=== PATIENT | male | born 1930 | race Caucasian/White ===

== ENCOUNTER 2016-10-31 00:56 | Inpatient (IN) ==
--- NOTE | 2016-10-31 01:26 | PROVIDER DOCUMENTATION ---
HPI-Abdominal Pain/GI Problem <Koko Avina - Last Filed: 10/31/16 02:44> - General Source: patient - History of Present Illness-ABD Nature of Presenting Problems: Pt is a 86 yom who presents to ER with CC of abdominal discomfort. Pt reports that he has noticed his abdomen has become moderately distended/tight, and reports nausea. Pt reports that he has had x2 bm today, and is having no problems, but reports that he was unable to sleep tonight due to the abdominal tightness. Abdominal Pain Onset Location: reports: generalized abdomen Pain Radiation: reports: no radiation Quality of Pain: reports: dull Severity in ED: reports: moderate Onset/Duration: reports: unsure, this evening Timing: reports: still present Activities at Onset: reports: rest Modifying Factors: improves with: other (sitting up). worse with: lying down Associated Symptoms: reports: loss of appetite (x3 days), nausea, swelling/mass in abdomen. denies: arm pain, back/neck pain, chest pain, cough, diarrhea, fatigue, genitourinary problems, muscle aches, shortness of breath, pain with inspiration, syncope, vomiting Last BM: this evening Dark Stools Present?: reports: none noticed Rectal Bleeding: reports: none Rectal Pain: reports: none Emesis Description: reports: none <Pj Kumar - Last Filed: 10/31/16 02:46> - General Chief Complaint: Abdominal Pain Stated Complaint: ABD PAIN Time Seen by Provider: 10/31/16 01:04 Allergies/Adverse Reactions: Patient Allergies Allergy/AdvReac Type Severity Reaction Status Date / Time pregabalin [From Lyrica] Allergy Unknown altered Verified 10/31/16 02:21 mental status diltiazem Allergy Unknown Verified 10/31/16 02:21 Home Medications: Home Medication List Medication Instructions Recorded Confirmed Last Taken Type EZETIMIBE/SIMVAstatin [Vytorin 1 each PO QHS 08/24/13 11/27/13 11/27/13 18:30 History 10/40 mg] Atenolol [Tenormin] 25 mg PO DAILY #0 tablet 09/20/13 11/27/13 11/27/13 08:30 Rx Thiamine [Vitamin B-1] 100 mg PO DAILY #30 tablet 11/17/13 11/27/13 11/27/13 08: 30 Rx Aspirin 81 mg PO DAILY 11/27/13 11/27/13 11/27/13 08:30 History Duloxetine [Cymbalta] 30 mg PO DAILY 11/27/13 11/27/13 11/27/13 08:30 History Ergocalciferol (Vitamin D2) 50,000 unit PO DIRECTED 11/27/13 11/27/13 Unknown History Insulin Detemir [Levemir Flexpen] 10 unit SQ HS 11/27/13 11/27/13 11/27/13 18: 30 History Multivitamins/Minerals [Centrum 1 each PO DAILY 11/27/13 11/27/13 11/27/13 08: 30 History Silver] Pyridoxine HCl [Vitamin B-6] 50 mg PO DAILY 11/27/13 11/27/13 11/27/13 08:30 History Temazepam 30 mg PO HS 11/27/13 11/27/13 11/27/13 18:30 History Review of Systems - Adult - REVIEW OF SYSTEMS - ADULT Constitutional: denies: chills, fever, fatique, night sweats Eyes: reports: no symptoms reported Ears, Nose, Mouth & Throat: reports: no symptoms reported Cardiovascular: denies: chest pain, edema, heart murmur, irregular heart rate, palpitations, poor circulation, syncope Respiratory: reports: wheezing. denies: chronic cough, cough, dyspnea on exertion, excessive sputum production, hemoptysis, pleurisy, shortness of breath Gastrointestinal: reports: abdominal pain, nausea, poor appetite. denies: hematemesis, constipation, diarrhea, difficulty swallowing, frequent heartburn, rectal bleeding, vomiting Genitourinary: reports: no symptoms reported Musculoskeletal: reports: no symptoms reported Integumentary: reports: no symptoms reported Neurological: reports: no symptoms reported Psychiatric: reports: no symptoms reported Endocrine: reports: no symptoms reported Hematologic/Lymphatic: reports: no symptoms reported Allergic/Immunologic: reports: no symptoms reported All Other Systems: Reviewed and Negative <Pj Kumar - Last Filed: 10/31/16 02:46> Past History - Adult - PAST MEDICAL HISTORY-ADULT Review of Records: reports: Nursing Assessment Review, Medications Reviewed - IMMUNIZATION STATUS Childhood Immunizations: See Nurse Assessment Flu Vaccine: See Nurse Assessment <Pj Kumar - Last Filed: 10/31/16 02:46> Physical Exam-General - PHYSICAL EXAM-ADULT Initial Vital Signs Reviewed: Yes - CONSTITUTIONAL General Appearance: appears well, alert, moderate distress, obese. negative: lethargic, slow to respond, obtunded, combative - RESPIRATORY Respiratory: chest non-tender, lungs clear, normal breath sounds. negative: respiratory distress, decreased breath sounds, accessory muscle use, wheezing - CARDIOVASCULAR Cardiovascular: normal peripheral pulses, regular rate, rhythm. negative: bradycardia, tachycardia, irregularly irregular - GASTROINTESTINAL (ABDOMEN) Abdominal Exam: normal bowel sounds, soft, distended, tenderness (diffuse). negative: guarding, rigid, rebound - MUSCULOSKELETAL Back Exam: no CVA tenderness, no vertebral tenderness. negative: CVA tenderness , decreased range of motion, muscle spasm, swelling, vertebral tenderness - SKIN Integumentary: normal color, normal turgor, warm/dry, swelling (abdominal), tenderness (abdominal) - NEUROLOGIC Neurologic: grossly normal, no motor/sensory deficits - PSYCHIATRIC Psych/Mental Status: normal thought content, normal thought process, oriented x 3, anxious <Pj Kumar - Last Filed: 10/31/16 02:46> Progress - PLAN OF CARE/RESULTS Progress/Plan/Lab Results: POC: CT/labs Vital Signs - 24 hr 10/31/16 00:58 Temperature 97.9 F Pulse Rate 113 H Respiratory 20 Rate Blood Pressure 116/71 O2 Sat by Pulse 94 L Oximetry Orders Category Date Time Status ABDOMEN/PELVIS W/O CONTRAST [CT] Stat Exams 10/31/16 01:21 Taken CBC WITH ELECTRONIC DIFF [HEME] Stat Lab 10/31/16 02:17 Completed CMP [COMPREHENSIVE METABOLIC PANEL] [CHEM] Stat Lab 10/31/16 02:17 Completed LIPASE [CHEM] Stat Lab 10/31/16 02:17 Completed MAGNESIUM [CHEM] Stat Lab 10/31/16 02:17 Completed UA Reflex [URINALYSIS W/POSS RFLX CULT] [URINALYSIS] Lab 10/31/16 01:08 Uncollected Stat 0.9% Sodium Chloride Inj [Ns] 1,000 ml Med 10/31/16 02:17 Active IV 125 mls/hr Acetaminophen [Ofirmev 1000 mg/Isotonic Soln] 100 ml Med 10/31/16 02:17 Discontinued IV NOW Ondansetron [Zofran] Med 10/31/16 02:17 Discontinued 4 mg IV NOW ONE Laboratory Tests 10/31/16 10/31/16 02:17 02:17 WBC 8.22 RBC 4.99 Hgb 15.9 Hct 47.2 MCV 94.6 MCH 31.9 H MCHC 33.7 RDW Std Deviation 13.4 Plt Count 148 MPV 9.8 Immature Gran % (Auto) 0.2 Neut % (Auto) 71.5 Lymph % (Auto) 7.3 L [place] % (Auto) 20.9 H Eos % (Auto) 0.0 Baso % (Auto) 0.1 Immature Gran # (Auto) 0.02 Neut # (Auto) 5.87 Lymph # (Auto) 0.60 L [place] # (Auto) 1.72 H Eos # (Auto) 0.00 Baso # (Auto) 0.01 Sodium 135 L Potassium 5.3 H Chloride 96 L Carbon Dioxide 22 L Anion Gap 17 BUN 26 H Creatinine 1.4 H Estimated GFR/1.73 m2 48 BUN/Creatinine Ratio 19 Glucose 206 H Calculated Osmolality 281 Calcium 9.4 Magnesium 1.8 Total Bilirubin 1.00 AST 16 ALT 16 Alkaline Phosphatase 59 Total Protein 6.9 Albumin 3.7 Globulin 3.2 Albumin/Globulin Ratio 1.2 Lipase 9 L - CT/MRI 1 CT Study: Abdomen, Pelvis Impression: See EMR Report CT Results: Small bowel obstruction - CONSULTS/PCP/HOSPITALIST Notification #1 *Consult/PCP/Hospitalist*: Dr. Chaudhary (Hospitalist) Time Discussed: 02:46 Consult Disposition: Admit <Pj Kumar - Last Filed: 10/31/16 02:46> Departure - Departure Time of Disposition Order: 02:44 Certified Medical Emergency: Emergent <Koko Avina - Last Filed: 10/31/16 02:44> - Departure Time of Disposition Order: 02:46 Certified Medical Emergency: Emergent <Pj Kumar - Last Filed: 10/31/16 02:46> - Departure DIAGNOSIS: SBO (small bowel obstruction) Disposition: ADMITTED INPATIENT 09 Condition: Stable Referrals: Omer Gaona, [Primary Care Provider] - Attestation - Scribe Verification/Attestation Scribe:: Pj Kumar Acting as Scribe for:: Koko Avina Scribe documention review:: This chart was documented by a scribe and accurately reflects the service the provider performed and the decisions made by the provider. <Pj Kumar - Last Filed: 10/31/16 02:46> Physician Attestation
[2016-10-31] MEDS ORDERED: NS 1,000 ML IV ONE (02:17)
[2016-10-31] MEDS ORDERED: OFIRMEV 1000 MG/ISOTONIC SOLN 100 ML IV ONE (02:17)
[2016-10-31] MEDS ORDERED: ZOFRAN IV ONE (02:17)
[2016-10-31 02:25] LABS: BASO% 0.1 % (0.0-0.8); HEMATOCRIT 47.2 % (42.0-52.0); HEMOGLOBIN 15.9 g/dL (14.0-18.0); IMM GRAN# 0.02 X1000 (0.0-0.04); IMM GRAN% 0.2 % (0.0-0.5); LYMPH% 7.3 % (20.5-51.1); MANUAL DIFF NEEDED? NO; MCH 31.9 PG (27-31); MCHC 33.7 g/dL (33-37); MCV 94.6 FL (81-99); MONO# 1.72 X1000 (0.11-0.59); MONO% 20.9 % (1.7-9.3); MPV 9.8 FL (7.4-10.4); NEUT% 71.5 % (42.2-75.2); PLT 148 X1000 (130-400); RBC 4.99 XMIL (4.7-6.1)
[2016-10-31 02:42] LABS: ALBUMIN 3.7 g/dL (3.5-5.0); CALCIUM 9.4 mg/dL (8.8-10.2); MAGNESIUM 1.8 mg/dL (1.5-2.7); POTASSIUM 5.3 mmol/L (3.5-5.1); TOTAL PROTEIN 6.9 g/dL (6.3-8.3)
[2016-10-31] MEDS ORDERED: TYLENOL PO PRN (03:16)
[2016-10-31] MEDS ORDERED: ZOFRAN IV PRN (03:16)
[2016-10-31 04:57] LABS: HEMOGLOBIN A1C 5.7 % (4.8-6.0)
[2016-10-31] MEDS: SODIUM CHLORIDE 0.9% INJ SCH (05:10)
[2016-10-31] MEDS: MORPHINE IV PRN ×6 (05:11→20:56)
[2016-10-31] MEDS: PROTONIX IV SCH (05:11)
--- NOTE | 2016-10-31 07:11 | CONSULTATION ---
DATE OF CONSULTATION: 10/31/2016 REQUESTING PHYSICIAN: Hospitalist service. REASON FOR CONSULTATION: Consult concerning small bowel obstruction. HISTORY OF PRESENT ILLNESS: An 86-year-old, male, who presented to the emergency department complaining of abdominal discomfort. He noticed that his abdomen had become moderately distended and tight, and reported some nausea. He said he had 2 bowel movements the day of presentation, but had no other issues. He said the abdominal tightness had awoken him from his sleep. He now says that his pain has resolved since he was admitted. He is still significantly distended. He had a CT scan that showed a bowel obstruction with potential transition point down in the pelvis. I was asked to evaluate the patient. PAST MEDICAL HISTORY: Hyperlipidemia, hypertension. Diabetes. PAST SURGICAL HISTORY: Includes previous spine surgery. Bilateral inguinal hernias. FAMILY HISTORY: Reviewed with patient, noncontributory. HOME MEDICATION: List includes simvastatin, atenolol, thiamine, aspirin, Cymbalta, vitamin D, Levemir, Centrum Silver, vitamin B6, temazepam. ALLERGIES: Include Lyrica and diltiazem. SOCIAL HISTORY: Denies alcohol, tobacco or illicit drugs. REVIEW OF SYSTEMS: A full 10 point review of systems obtained, negative except as specified in HPI. PHYSICAL EXAMINATION: Vital Signs: The patient is currently afebrile. His vital signs are stable. His most recent temperature 97.8, pulse 99, respiratory rate 20, blood pressure 134/91, O2 saturation 97% on 2 L nasal cannula. General: No acute distress. Resting comfortably. male looks stated age. HEENT: Normocephalic, atraumatic. Pupils are round, react to light. Mucous membranes moist. Oropharynx benign. Neck: Supple. Trachea midline. Cardiovascular: Regular rate and rhythm. Lungs: Grossly clear. Abdomen: Protuberant, but soft. Tympanic to percussion. No significant abdominal tenderness. No peritoneal signs. Extremities: Moves all extremities well. Neurologic: Grossly intact. Skin: No signs of jaundice. Vascular: All extremities perfused. LABORATORY: Reviewed. CBC is essentially within normal limits. BMP reviewed. He does have some electrolyte imbalance with a sodium 135, potassium 5.3, chloride 96, bicarb 22, BUN is 26, creatinine is 1.4, glucose 206. CT scan independently reviewed and radiology report reviewed. He does seem to have what appears to be a partial small bowel obstruction. ASSESSMENT AND PLAN: An 86-year-old, male with likely partial small bowel obstruction. 1. Multiple medical comorbidities to be managed by the hospitalist service. 2. Small bowel obstruction. At this time, we will place a nasogastric tube given the distention. Will order a flat and upright later on today to evaluate progress. We will try nonoperative approach given his lack of tenderness at this time. If no improvement, may need to consider exploratory laparotomy. This was discussed with the patient. He voiced understanding. We will follow the patient with you.
--- NOTE | 2016-10-31 08:57 | HISTORY AND PHYSICAL ---
PRIMARY CARE PROVIDER: Dr. Omer Gaona. CHIEF COMPLAINT: Abdominal pain. HISTORY OF PRESENT ILLNESS: Mr. Tucker is an 86-year-old male with a past medical history of diabetes mellitus type 2, dyslipidemia, hypertension, coronary artery disease status post CABG in 1996, renal insufficiency, and BPH. He presented to the ER this morning at approximately 1 a.m. with complaints of abdominal pain and nausea. The patient states that earlier today he began having abdominal pain. He also reports that for the past 2-3 days that he has noticed increased abdominal distension. The patient complains of just generalized abdominal pain that he describes as feeling like a tightness-type pain in nature. He does report nausea though denies any vomiting. The patient states that he has been having daily regular bowel movements. He denies any melena though he did report that he did have 2 episodes of loose stools today. He also reports that for the past day or two that he has been more fatigued than normal. He reports that the pain in his abdomen is worse when lying down and is better when he is sitting up. He denies any dizziness, chest pain, shortness of breath, cough, vomiting, fever, body aches or chills. Upon evaluation in the ER, the patient did receive a CT of the abdomen and pelvis that showed a small bowel obstruction. There were multiple prominently dilated gas and fluid filled loops of small bowel with transition to normal caliber in the right abdomen. There was also mesenteric edema with a small amount of free fluid. Also possible was a small lipoma within the loop of the bowel in the right lower quadrant, though this was likely incidental. The patient was also found to have acute kidney injury on chronic kidney disease. His creatinine is 1.4, though the only previous result that we have was 1.2 in 2014. The patient's GFR was 48 with a most recent result of greater than 60 in 2014, as well. The patient does report that for the past couple of days that he has not had an appetite and has not been eating and drinking much. REVIEW OF SYSTEMS: A 14-point review of systems was conducted with the patient and all were negative except for pertinent positives mentioned in the above HPI. PAST MEDICAL HISTORY: 1. Diabetes mellitus type 2. 2. Nephropathy. 3. Dyslipidemia. 4. Hypertension. 5. Coronary artery disease status post CABG in 1996. 6. Renal insufficiency. 7. Degenerative disk disease. 8. BPH. PAST SURGICAL HISTORY: 1. Coronary artery bypass graft [place] [address] Arguelles at [facility]. 2. Several lower back surgeries as well as fusion for herniated disk. 3. Tonsillectomy. 4. Cyst removal from right shoulder. 5. Hernia repair. SOCIAL HISTORY: The patient is , does have 4 children. His son was present at the bedside upon my examination. He does have an approximately 20-year smoking history though quit smoking 45 years ago. During this time, he did smoke approximately 3 packs of cigarettes per day. He also reports previous daily alcohol use. The patient reports that he used to drink 3 alcoholic drinks daily for several, several years from the age of a teenager though quit approximately 3 years ago. FAMILY HISTORY: His father has a history of heart disease and did pass away secondary to a myocardial infarction. He reports that his mother had no major medical problems and of natural causes at age 96. He does have a sister that has a history of stroke and dementia. ALLERGIES: The patient reports allergies to Lyrica and Cardizem. HOME MEDICATIONS: At this time, the patient was unable to verify his home medications. We have made a request to have the patient's medications bottles brought in or verified with his pharmacy in the morning, if possible, and will update this once this available. DIAGNOSTIC DATA/LABORATORY RESULTS: White blood cell count 8.2, hemoglobin 15.9, hematocrit 47.2, platelet count 148. Sodium 135, potassium 5.3, chloride 96, bicarb 22, BUN 26, creatinine 1.4, GFR is 48, glucose 206, hemoglobin A1c was 5.7, calcium 9.4, magnesium 1.8. Liver function tests were within normal limits. Lipase was 9. CT of the abdomen and pelvis without contrast: As mentioned above, there was a small bowel obstruction identified. There were multiple prominently dilated gas and fluid-filled loops of small bowel with a transition point to normal caliber in the right abdomen. There was also noted mesenteric edema with a small amount of free fluid as well as a possible small lipoma within the loop of the bowel in the right lower quadrant. PENDING DIAGNOSTIC STUDIES AT THIS TIME: Urinalysis. PHYSICAL EXAMINATION: VITAL SIGNS: Temperature 97.8, heart rate 99, respirations 22, blood pressure 134/91, oxygen saturation is 97% nasal cannula at 2 L. GENERAL: Mr. Tucker is a obese elderly male who was resting in the ER stretcher, was in no acute distress, was awake, alert, and able to answer all questions appropriately. HEENT: Head is atraumatic, normocephalic. Pupils are equal, round, reactive to light, were 3 mm bilaterally and brisk. Subconjunctivae were pink. Oral mucosa is moist. Oropharynx is clear. NECK: Supple, trachea midline, no JVD noted. No carotid bruits noted upon auscultation bilaterally. CARDIOVASCULAR: The patient has normal S1, S2, no murmurs, gallops, or rubs appreciated with a regular rate and rhythm. PULMONARY: The patient has symmetrical chest expansion bilaterally. Lung sounds were clear to auscultation in bilateral full arguelles. ABDOMEN: Abdomen is firm, distended. The patient did have some generalized tenderness noted upon palpation. He seemed to state that this was worse in the right and left sides of his abdomen. Bowel sounds were present in all 4 quadrants, were slightly hyperactive. EXTREMITIES: No cyanosis, clubbing, or edema noted. Pulse, motor, and sensory was intact in all extremities. Radial pulses were 3+ bilaterally. Pedal pulses were 3+ bilaterally, as well. INTEGUMENTARY: The patient's skin is pink, warm, dry, and intact. No lesions or sores noted. NEUROLOGICAL: The patient is alert and oriented x3. Cranial nerves 2-12 are grossly intact. ASSESSMENT AND PLAN: 1. Small bowel obstruction. For this, we will place the patient n.p.o. to provide bowel rest. At this time, the patient is not having any overt nausea and has not had any vomiting, so we will hold off on NG tube placement at this time though will monitor him closely for any worsening of symptoms. We have placed a consult for Dr. Toney with Surgery to evaluate the patient, as well, and will await his recommendations also. We will treat his pain with morphine and nausea with Zofran p.r.n. as needed. 2. Acute on chronic kidney disease. The patient's renal function is down from previous results, though these are 3 years old, with the last ones being in 2013. Due to this, we are unable to accurately assess the patient's current baseline, though the patient did report that he has not had a good appetite or good oral intake for the last 2-3 days. We will provide him with normal saline at 125 mL/h. and will continue to follow this closely, avoid nephrotoxic medications and renally dose medications as necessary and will repeat a BMP tomorrow morning. 3. Diabetes mellitus type 2. We are awaiting for the patient's home medication list to be updated, though at this time the patient's glucose is not highly elevated and he will be n.p.o., so we will just monitor this at this time and, if necessary, will likely place him on a low-dose sliding scale lispro insulin and continue to follow as well as do fingerstick blood sugars morning and night. 4. Hypertension. Also, the patient's blood pressure at this time is within normal limits. We are awaiting his home medication list to be updated and verified and will continue this, if necessary. 5. Dyslipidemia. Given that the patient is n.p.o., we will hold this medication at this time. Once he is able to tolerate oral medications and liquids, we will continue this with his regularly prescribed home medication. The patient will be placed on the medical floor with telemetry. He will have vital signs q.8 h. with a strict intake and output. DVT prophylaxis will be provided with SCDs, GI prophylaxis will be provided with Protonix 40 mg IV q.24 h. Further orders and recommendations pending hospital course, diagnostic studies, and physician evaluation. Dictated by SMITHA Edmonds for Omari Chaudhary MD
--- NOTE | 2016-10-31 09:02 | Diag Imaging Result Document ---
PROCEDURE NAME: ABDOMEN/PELVIS W/O CONTRAST - 10/31/2016 CT UROGRAM WITHOUT CONTRAST: FINDINGS: There is atelectasis and/or fibrosis present in both lung bases most notably in the lingula. The fibrotic changes were also present at the time of the previous study of 11/08/2013. There is some atelectasis present on the previous study which has resolved. The stomach is markedly distended with fluid. There are some granulomata present in the spleen. The adrenal glands are not enlarged. The liver contains at least 1 granuloma. There are no definite gallstones. The pancreas is normal in appearance. There are vascular calcifications throughout the aorta and its branches including the proximal and mid superior mesenteric arteries. There are multiple cysts present in both kidneys some of which on the left side are hyperdense. The largest cyst is on the left measuring over 6.7 cm. There is no evidence of hydronephrosis. No renal stones are identified. There is gas and stool in the colon. The appendix is not enlarged or inflamed in appearance. There is some fluid and gaseous distention through much of the small bowel. There appears to be a gradual change in the caliber of the distal small bowel; however, the terminal ileum is clearly decompressed. There is no evidence of colonic dilatation. There are some diverticula in the colon particularly distally, however, there is no evidence of active diverticulitis. There are seromata in the inguinal rings bilaterally consistent with previous herniorrhaphy, and this has not changed since the previous study. Postsurgical changes are demonstrated in the lumbar spine. There has been no change in the regional skeleton since the previous study. IMPRESSION: Partial small bowel obstruction. The possibility of gastroparesis cannot be excluded. Chronic mesenteric panniculitis, unchanged since 11/08/2013. The possible lipoma described in the preliminary report was not demonstrated on the previous study and may very well represent something that was ingested by the patient.
--- NOTE | 2016-10-31 09:48 | Diag Imaging Result Document ---
PROCEDURE NAME: ABDOMEN FLAT/UPRIGHT - 10/31/2016 FLAT AND UPRIGHT ABDOMEN, PORTABLE: FINDINGS: There is continued dilatation of the small bowel which is actually slightly worse than on 02/11/2016. There is some colonic gas present with stool in the rectum. The NG tube tip is in the left upper quadrant, presumably in the stomach. IMPRESSION: Partial small bowel obstruction.
[2016-10-31] MEDS: HUMULIN R SUBQ SCH ×3 (13:16→20:57)
[2016-10-31 14:14] LABS: URINE CULTURE NEEDED? NO; URINE MICRO REVIEW NEEDED? NO; URINE SOURCE CLEAN CATCH
[2016-10-31 14:26] LABS: BILIRUBIN URINE NEGATIVE (NEGATIVE); BLOOD URINE NEGATIVE (NEGATIVE); COLOR YELLOW; GLUCOSE URINE NEGATIVE (NEGATIVE); LEUKOCYTES URINE NEGATIVE (NEGATIVE); NITRITE URINE NEGATIVE (NEGATIVE); PH URINE 5.5; PROTEIN URINE 30 mg/dL (NEGATIVE); SP GRAVITY URINE 1.033; TURBIDITY URINE CLEAR (CLEAR); UROBILINOGEN URINE NORMAL (NORMAL)
[2016-10-31 14:28] LABS: UR EPITHELIAL CELLS <10 /HPF (<10); URINE BACTERIA NEGATIVE /HPF; URINE RBC <10 /HPF (<10); URINE WBC <10 /HPF (<10)
[2016-11-01] MEDS: PROTONIX IV SCH (04:00)
[2016-11-01] MEDS: MORPHINE IV PRN ×5 (04:00→21:47)
[2016-11-01 06:32] LABS: BASO% 0.2 % (0.0-0.8); EOS# 0.07 X1000 (0.0-0.7); EOS% 1.3 % (0.0-10.0); HEMATOCRIT 45.9 % (42.0-52.0); IMM GRAN# 0.04 X1000 (0.0-0.04); IMM GRAN% 0.7 % (0.0-0.5); LYMPH# 0.87 X1000 (1.2-3.4); MANUAL DIFF NEEDED? YES; MCH 31.1 PG (27-31); MCHC 32.7 g/dL (33-37); MCV 95.2 FL (81-99); MONO# 1.42 X1000 (0.11-0.59); MONO% 26.1 % (1.7-9.3); MPV 9.6 FL (7.4-10.4); NEUT% 55.7 % (42.2-75.2); PLT 134 X1000 (130-400); RBC 4.82 XMIL (4.7-6.1)
[2016-11-01 06:50] LABS: CALCIUM 9.3 mg/dL (8.8-10.2); MAGNESIUM 1.9 mg/dL (1.5-2.7)
--- NOTE | 2016-11-01 07:20 | PROGRESS NOTE ---
DATE: 11/01/2016 SUBJECTIVE: Patient reports feeling better overall. He says he feels like he is going to have to pass gas, but has not passed any flatus yet. No major issues reported. OBJECTIVE: Vital Signs: Patient is currently afebrile. His vital signs have been stable. NG tube in place and have 640 mL recorded out. General exam: No acute distress. Alert, interactive, male looks stated age. HEENT: Normocephalic, atraumatic. Pupils equal, round, reactive to light. Mucous membranes moist. Oropharynx benign. NG tube in place. Cardiovascular: Regular rate and rhythm. Lungs: Grossly clear. Abdomen: Protuberant but soft, nontender at this time. Extremities: Moves all extremities. Neurologic: Grossly intact. Skin: No signs of jaundice. Vascular: All extremities perfused. LABORATORY: CBC reviewed were essentially within normal limits. ASSESSMENT AND PLAN: An 86-year-old, male with a partial small bowel obstruction. 1. Multiple medical comorbidities being managed by the Hospital windows server support technician. 2. Partial small bowel obstruction. At this time we will continue NG tube decompression. He is clinically improving. His abdominal film from yesterday showed a partial small bowel obstruction. We will plan on small bowel series in the morning to evaluate for any obstruction and also to be potentially therapeutic. This was discussed with the patient.
[2016-11-01] MEDS: HUMULIN R SUBQ SCH ×4 (07:42→21:52)
[2016-11-01] MEDS: NS 1,000 ML IV SCH (07:50)
[2016-11-01] MEDS ORDERED: PNEUMOVAX 23 IM ONE (09:00)
--- NOTE | 2016-11-01 14:25 | PROGRESS NOTE ---
DATE: 11/01/2016 SUBJECTIVE: The patient states that he is not having any nausea, vomiting or abdominal pain at this time. He currently has an NG tube to low intermittent suction. OBJECTIVE: Vital Signs: Temperature 97 degrees, blood pressure 161/77, heart rate 97, respirations 16, O2 saturations 95% on room air. General: This is a morbidly obese male lying in bed in no acute distress. Head: Normocephalic, atraumatic. Heart: S1, S2. Normal. Regular rate and rhythm. Lungs: Clear to auscultation bilaterally. No wheezes, no rales. No rhonchi. Abdomen: Positive bowel sounds. Soft, nontender, nondistended. Extremities: No edema. No cyanosis. No calf tenderness. Peripheral pulses palpable. Neurological: Patient is alert and oriented x3. No focal neurologic deficits noted. LABS: White blood cell count 5.4, hemoglobin 15, hematocrit 45, platelets 134,000. Sodium 136, potassium 5, chloride 96, CO2 23, BUN 33, creatinine 1.3, glucose 134, magnesium 1.9, phosphorus 4. ASSESSMENT AND PLAN: 1. Partial small bowel obstruction. Continue with NG tube decompression. Will continue on IV fluids while the patient is on NPO status. A repeat abdominal x-ray is ordered for tomorrow. Further management as per the general surgeon. 2. Hypertension. Controlled. 3. Diabetes mellitus type 2. Continue on sliding scale insulin. 4. Morbid obesity. Aware. 5. Coronary artery disease status post coronary artery bypass graft. Aware. 6. Deep vein thrombosis prophylaxis. Will start the patient on Lovenox.
--- NOTE | 2016-11-01 14:54 | Diag Imaging Result Document ---
PROCEDURE NAME: ABDOMEN FLAT/UPRIGHT - 11/01/2016 FLAT AND UPRIGHT ABDOMEN: FINDINGS: There is considerable small bowel and some colonic gas, the latter extending at least to the distal descending colon. There is no evidence of organomegaly or mass, and there is some apparent gas in the rectum. IMPRESSION: Apparent ileus.
[2016-11-01] MEDS: LOVENOX SUBQ SCH (15:43)
[2016-11-02] MEDS: MORPHINE IV PRN ×3 (02:54→22:55)
--- NOTE | 2016-11-02 06:04 | PROGRESS NOTE ---
DATE: 11/02/2016 SUBJECTIVE: Patient reports passing gas and feeling better. He also had an episode of atrial fibrillation which is currently being evaluated by the hospitalist service. He complains of no chest pain at this time. Again, he is saying that he is feeling better. He is reporting passage of flatus at least twice. No other major issues besides the onset of atrial fibrillation. PHYSICAL EXAMINATION: General Examination: No acute distress. Alert and interactive, male. Looks stated age. HEENT: Normocephalic, atraumatic. Pupils equal, round, and reactive to light. Mucous membranes moist. Oropharynx benign. Neck: Supple. Trachea midline. Cardiovascular: Irregularly irregular, consistent with atrial fibrillation. Lungs: Grossly clear. Abdomen: Soft, less distended from previous days, nontender. Extremities: Moves all extremities. Neurologic: Grossly intact. Skin: No signs of jaundice. Vascular: All extremities perfused. LABORATORY: None currently. ASSESSMENT/PLAN: An 86-year-old, male with small-bowel obstruction and new onset atrial fibrillation. 1. New onset atrial fibrillation. At this time, to be evaluated by the hospitalist service. 2. Partial small bowel obstruction. At this time, the patient is to have a small bowel series. I do not suspect that the patient's atrial fibrillation would be able to preclude him from a small bowel series. We will follow with hospitalist's recommendations but at this time continue nonoperative management. If no obvious obstruction noted on small bowel series, restart a diet.
[2016-11-02] MEDS ORDERED: LANOXIN IV ONE ×2 (06:06→10:56)
[2016-11-02] MEDS: PROTONIX IV SCH (06:09)
[2016-11-02 06:44] LABS: HEMATOCRIT 45.1 % (42.0-52.0); HEMOGLOBIN 14.6 g/dL (14.0-18.0); MCH 31.5 PG (27-31); MCHC 32.4 g/dL (33-37); MCV 97.4 FL (81-99); MPV 10.1 FL (7.4-10.4); RBC 4.63 XMIL (4.7-6.1)
--- NOTE | 2016-11-02 06:44 | EKG Report ---
Test Performed on : 11/02/2016 03:52:56 AM Test Reason : A-Fib on telemetry Blood Pressure : / mmHG Vent. Rate : 136 BPM Atrial Rate : 147 BPM P-R Int : 000 ms QRS Dur : 088 ms QT Int : 304 ms P-R-T Axes : 000 -33 108 degrees QTc Int : 457 ms Atrial fibrillation. with rapid ventricular response. Left axis deviation Nonspecific ST abnormality Abnormal QRS-T angle, consider primary T wave abnormality Abnormal ECG When compared with ECG of 27-NOV-2013 20:33, Atrial fibrillation. has replaced Sinus rhythm. Vent. rate has increased BY 55 BPM Nonspecific T wave abnormality no longer evident in Lateral leads Confirmed by Levy Stanton MD ([id number]) on 11/03/2016 9:35:41 PM
[2016-11-02 07:08] LABS: ALBUMIN 3.4 g/dL (3.5-5.0); CALCIUM 8.6 mg/dL (8.8-10.2); MAGNESIUM 1.8 mg/dL (1.5-2.7); POTASSIUM 4.2 mmol/L (3.5-5.1)
--- NOTE | 2016-11-02 07:20 | EKG Report ---
Test Performed on : 11/02/2016 06:04:11 AM Test Reason : No Order in [facility] Blood Pressure : / mmHG Vent. Rate : 125 BPM Atrial Rate : 174 BPM P-R Int : 000 ms QRS Dur : 086 ms QT Int : 308 ms P-R-T Axes : 000 -24 102 degrees QTc Int : 444 ms Atrial fibrillation. with rapid ventricular response. with premature ventricular or aberrantly conduc vikram complexes. Possible Inferior infarct , age undetermined Nonspecific ST abnormality Abnormal ECG When compared with ECG of 02-NOV-2016 03:52, (Unconfirmed) No significant change was found Confirmed by Levy Stanton MD ([id number]) on 11/03/2016 9:36:24 PM
[2016-11-02 07:48] LABS: CK INDEX 0.5 (0.0-2.5); CK-MB 4.09 ng/mL (0.0-5.0)
[2016-11-02] MEDS ORDERED: PREVNAR 13 IM ONE (09:00)
[2016-11-02] MEDS ORDERED: CARDIZEM IV ONE ×2 (10:55→11:10)
[2016-11-02] MEDS ORDERED: CARDIZEM 100 MG/NS 100 ML IV SCH (11:00)
[2016-11-02] MEDS: HUMULIN R SUBQ SCH ×3 (11:39→20:31)
[2016-11-02] MEDS: NS 1,000 ML IV SCH ×2 (11:39→13:39)
[2016-11-02] MEDS: LANOXIN IV SCH ×2 (11:54→16:23)
[2016-11-02] MEDS: CARDIZEM 100 MG/NS 100 ML IV SCH (13:40)
--- NOTE | 2016-11-02 14:12 | CONSULTATION ---
DATE OF CONSULTATION: 11/02/2016 CHIEF COMPLAINT: Abdominal distention and abdominal pain. REASON FOR CONSULTATION: Atrial fibrillation with rapid response. HISTORY OF PRESENT ILLNESS: Mr. Tucker is an 86-year-old male who presented to the hospital emergency room department on 10/31/2016 with complaints of abdominal distention that had been going on for a day or so. He also experienced abdominal pain. He denied experiencing any nausea, vomiting or fever. No chest pain. He was seen in the ER in the tow motor driver hours of 10/31/2016, and they requested a CT scan of the abdomen which showed partial small bowel obstruction, chronic mesenteric pancolitis, possible lipoma, possibility of gastroparesis cannot be excluded. Dr. Toney from Surgery was consulted. He is following the case. They put in a nasogastric tube for decompression. The patient had been tachycardic, and this morning he went into atrial fibrillation with a rapid response. That was documented on EKG done at 3:52 in the morning. They have called us in consultation to assist in management. PAST MEDICAL HISTORY: Positive for coronary artery disease. He has not had any chest pain since his bypass in 1996. He follows periodically with Dr. Sarthak Berrios at the [facility] in [place]. He typically follows up with him once a year, and the last time he was seen was in 01/2016 when he was found stable. He has history of diabetes mellitus type 2, history of hypertension, dyslipidemia, some degree of renal insufficiency, benign prostatic hypertrophy. He has degenerative joint disease. PAST SURGICAL HISTORY: He has had bypass at [facility] in 1996, a quintuple bypass. He has had lumbar surgery in [place]. He had tonsillectomy, a cyst removed from the right shoulder and bilateral inguinal hernia repair by Dr. Harden. SOCIAL HISTORY: He is for 59 years, retired. 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 He has 4 grownup children and several grandchildren. He quit smoking 45 years ago, he smoked for 20 years. He does not use any illicit drugs. He has occasional alcohol. FAMILY HISTORY: Father had heart disease and [place]. Sister had a stroke and dementia. ALLERGIES: The patient is allergic to pregabalin. HOME MEDICATIONS: Listed at the time of this admission included atenolol 25 mg daily, aspirin 81 mg daily, Vytorin 10/40 once a day, Cymbalta 30 daily, pyridoxine 50 mg daily, insulin detemir 10 units at bedtime, ergocalciferol vitamin D2 50,000 units, temazepam 30 mg at bedtime, multivitamins daily, thiamine and B1 daily. REVIEW OF SYSTEMS: He is generally active. He attends physical therapy twice a week. He has some issues with his back and some history of swelling of his legs. Lately he has been doing basically fine until the onset of the abdominal symptoms. PHYSICAL EXAMINATION: His temperature right now is 98.7, pulse 120, blood pressure 140/91, respirations 20. He is awake, alert, in no distress. HEENT is unremarkable. He has a nasogastric tube in place. Chest shows diminished breath sounds at the bases. No rales are noted. Heart sounds are distant, irregularly irregular. No gallop or murmur. Abdomen is distended, tympanitic. Bowel sounds are markedly diminished. Extremities showed palpable dorsalis pedis pulses. Extremities are somewhat cool. I do not detect any edema. Neurologic: Follows commands. Moves all 4 extremities. DIAGNOSTIC DATA: White count is 4600, hemoglobin 14.6. Sodium is 139, potassium 4.2, BUN is 30, creatinine 1.2. Creatine kinase is 780. Troponin has been checked once and is negative. A ProBNP level was checked, and it was 518. That is borderline elevated. Albumin is 3.4. His urinalysis showed trace ketones. Chest x-ray is not reported. Abdominal x-ray reveals apparent ileus. IMPRESSION: 1. The patient has developed paroxysmal atrial fibrillation in the midst of small bowel obstruction. 2. The patient has history of severe coronary artery disease, previous coronary bypass surgery in 1996. 3. Stable pattern of angina pectoris/heart symptoms for the past 20 years. 4. History of hypertension and hyperlipidemia. 5. Renal insufficiency, probably acute on chronic. RECOMMENDATIONS: From a cardiology viewpoint, we will put him on IV Cardizem and digoxin to control his heart rate. He will be transferred to the Step-Down Cardiac Unit for that purpose. The Surgical Service will continue to manage his bowel obstruction, and we will help in controlling his atrial fibrillation until he hopefully resolves the bowel obstruction at some point.
[2016-11-02] MEDS: LOVENOX SUBQ SCH (16:23)
--- NOTE | 2016-11-02 18:49 | PROGRESS NOTE ---
DATE: 11/02/2016 SUBJECTIVE: This is an 86-year-old male whose past medical history includes diabetes mellitus type 2, dyslipidemia, hypertension, coronary artery disease status post CABG in 1996, renal insufficiency and benign prostatic hypertrophy. Presented to the emergency room the morning of 10/31 with complaints of abdominal pain and nausea. The patient states that earlier in the day had abdominal pain. Reports that the past 2 or 3 days he had noticed increased abdominal distention. Patient complains of just generalized abdominal pain, feeling like tightness pain in nature. He does report nausea though denies any vomiting. Patient states he has been having daily regular bowel movements. Denies any melena, though he did report he did have 2 episodes of loose stools. CT of the abdomen showed small bowel obstruction. He has been admitted, NG tube placed. Followed by Dr. Toney. He appears to be getting a little better with conservative management. Today I did note that he went into atrial fibrillation, rate a little elevated, so I put him on Cardizem. OBJECTIVE: Vital signs: Temperature 98.2 degrees, pulse 92, respirations 19, blood pressure 132/68. HEENT: Pupils are equal and round. CVP less than 6 cm. Lungs: Clear in all lung moore. Cardiovascular: Regular rhythm and rate without murmur or S3. Abdomen: His abdomen is distended. I do hear some high-pitched bowel sounds. He is passing some gas. No focal tenderness Skin: Warm and dry. : Good urine output by report. Although I do not really see recordings of input and output. PERTINENT DATA: The abdominal x-ray from yesterday showed apparent ileus considerable small bowel, some colonic gas later extending at least to the ascending colon. NG tube in place. EKG, Dr. Bush is following and his EKG of course shows atrial fibrillation. No ST elevation. ASSESSMENT AND PLAN: 1. Small bowel obstruction. Continue nasogastric tube. The plan is maybe we can stop nasogastric tube tomorrow and try some liquids. He is begging for some water or ice chips. Appears to be clinically a little better. 2. Hypertension. Blood pressure controlled. 3. Diabetes mellitus type 2. Follow his sugars with sliding scale. 4. Morbid obesity. 5. Coronary artery disease status post coronary artery bypass grafting. Aware. 6. Atrial fibrillation. New onset. I suspect this may resolve. We are using Cardizem now. His rate is controlled. We will continue to follow. He is on Lovenox 40 mg subcutaneously q.24 hours. Diltiazem drip. He is getting fluids at normal saline at 75 mL an hour. He is on Protonix 40 mg daily and Lanoxin 250 mcg. I think he was loaded with some digoxin intravenously. I do not know if we want to continue that p.o. See how we do. On review of laboratory, his hematocrit is stable. Chemistries look good. Serum creatinine 1.2.
--- NOTE | 2016-11-02 19:12 | Diag Imaging Result Document ---
PROCEDURE NAME: SMALL BOWEL SERIES ONLY - 11/02/2016 SMALL BOWEL SERIES: Mold Release Worker film demonstrates multiple air distended loops of small bowel. There are degenerative changes to the lumbar spine and there has been prior surgery to the lower lumbar spine. There are multiple pelvic calcifications consistent with phleboliths. Oral contrast easily flowed through the stomach into the small bowel. The duodenum is not dilated although the jejunum is dilated. Contrast had not passed through the colon at 4- 1/2 hours. Delayed portable 6-1/2 and 8-1/2 hour films obtained. Oral contrast had passed through the small bowel into the colon on the 6-1/2 hour film. Transition in the ileum appears to be in the right lower quadrant. IMPRESSION: Partial distal small bowel obstruction apparently in the right lower quadrant. [facility]
[2016-11-03] MEDS: MORPHINE IV PRN ×3 (03:08→22:25)
[2016-11-03] MEDS: NS 1,000 ML IV SCH ×2 (03:08→21:10)
[2016-11-03 05:21] LABS: AGAP 12; BUN 28 mg/dL (8-22); CALCIUM 8.1 mg/dL (8.8-10.2); CHLORIDE 102 mmol/L (98-107); COSMO 286; MAGNESIUM 1.8 mg/dL (1.5-2.7); POTASSIUM 4.4 mmol/L (3.5-5.1); SODIUM 140 mmol/L (136-145); TCO2 26 mmol/L (25-35)
[2016-11-03] MEDS: PROTONIX IV SCH (05:24)
[2016-11-03] MEDS: HUMULIN R SUBQ SCH ×4 (06:55→22:35)
--- NOTE | 2016-11-03 07:37 | EKG Report ---
Test Performed on : 11/03/2016 07:02:34 AM Test Reason : afib with rvr Blood Pressure : / mmHG Vent. Rate : 081 BPM Atrial Rate : 104 BPM P-R Int : 000 ms QRS Dur : 086 ms QT Int : 370 ms P-R-T Axes : 000 -20 049 degrees QTc Int : 429 ms Atrial fibrillation. Low voltage QRS Abnormal ECG When compared with ECG of 02-NOV-2016 06:04, (Unconfirmed) Vent. rate has decreased BY 44 BPM Confirmed by Levy Stanton MD ([id number]) on 11/03/2016 9:52:57 PM
--- NOTE | 2016-11-03 07:44 | PROGRESS NOTE ---
DATE: 11/03/2016 SUBJECTIVE: Patient transferred to the CICU secondary to his new onset atrial fibrillation. He had a small bowel series done yesterday that did show contrast passing all the way through to his colon. It was read as a partial small bowel obstruction. The patient does report that he is passing gas and not sick to his stomach. Otherwise doing well. OBJECTIVE: Vital Signs: The patient is currently afebrile. His vital signs have been stable. General Examination: No acute distress. Alert, interactive, male. Looks stated age. HEENT: Normocephalic, atraumatic. Pupils are equal, round, and react to light. Mucous membranes moist. Oropharynx benign. Neck: Supple. Trachea midline. Cardiovascular: Appears some aspects at some points to have atrial fibrillation but overall appears to be almost normal sinus rhythm. Lungs: Grossly clear. Abdomen: Less distended. Positive bowel sounds auscultated. Nontender. Extremities: Moves all extremities. Neurologic: Grossly intact. Skin: No signs of jaundice. Vascular: All extremities perfused. Laboratory: Reviewed from yesterday and from this morning. An abdominal series reviewed from yesterday and noted as above. ASSESSMENT/PLAN: An 86-year-old, male with partial small bowel obstruction and new onset atrial fibrillation. 1. New onset atrial fibrillation. At this time, being managed by the hospitalist and cardiology service. We will continue to monitor. 2. Partial small bowel obstruction. At this time, he has got contrast passing all the way through to his colon. If he does have a bowel obstruction, it is only partial. At this time, we will clamp his nasogastric tube and start a clear liquid diet. We will plan on monitoring him closely.
--- NOTE | 2016-11-03 08:20 | PROGRESS NOTE ---
DATE: 11/03/2016 SUBJECTIVE: Mr. Tucker had a good night, slept pretty well. His abdomen feels softer. He has no nausea, very little abdominal discomfort. NG tube was clamped off. He was able to swallow some water and some ice. PHYSICAL EXAMINATION: Vital Signs: Today, temperature 98.2 degrees, pulse 92, respirations 19, blood pressure 132/68. HEENT: Pupils are equal and round. CVP less than 6 cm. Lungs: Clear in all lung moore. Cardiovascular Examination: Regular rhythm and rate without murmur or S3. Abdomen: Softer. Still some distention. Positive bowel sounds in all quadrants. Is and Os: Good urine output by report. ASSESSMENT AND PLAN: 1. Note, small bowel x-ray done yesterday, partial distal small-bowel obstruction apparently in the right lower quadrant. Partial small bowel obstruction. Seems to be doing better clinically. He is passing a lot more gas. Nasogastric tube was clamped. Giving him some ice and water. 2. Atrial fibrillation. Rate appears controlled. Monitor shows still atrial fibrillation. Rate is controlled. He looks comfortable. 3. Blood pressure is doing well, 122, 153. 4. Hopefully can advance to liquids. Could try some lactulose per nasogastric tube. 5. Review of orders. He has got normal saline going at 75 mL an hour. Still on a Cardizem drip, on Lovenox 40 mg subcutaneous daily.
--- NOTE | 2016-11-03 08:39 | PROGRESS NOTE ---
DATE: 11/03/2016 CHIEF COMPLAINT: Irregular heartbeat, abdominal distention, and abdominal pain. SUBJECTIVE: Mr. Tucker denies having any chest pain or palpitations. His compliance monitor indicates that the rate is controlled. He is still in atrial fibrillation. His abdomen is slightly tender in the left lower quadrant and remains distended. Otherwise, he has no specific additional complaints. His 12 lead EKG done this morning shows atrial fibrillation. Rate is 81 beats per minute with a leftward axis, early transition, and no specific ST abnormality. OBJECTIVE: Vital Signs: Blood pressure today is 135/66, temperature 99.1, pulse 69, and respirations 18. General: The patient is awake, alert, and in no distress. HEENT: Unremarkable. Chest: Clear to auscultation and percussion. Cardiovascular: Heart sounds are irregularly irregular. Gastrointestinal: The abdomen is distended and tympanitic. Bowel sounds are diminished. Extremities: The extremities show fairly good pulses. No edema. Neurological: He moves all extremities. Blood work today reveals a sodium of 140, potassium 4.4, BUN 28, and creatinine 1.1. Phosphorus is 2.4. Magnesium is 1.8. Albumin is 3. IMPRESSION AND PLAN: 1. The patient presented to the hospital with a bowel obstruction and presently he is being managed for that specific condition. 2. The patient has developed paroxysmal atrial fibrillation in the midst of this abdominal emergency. He denies having angina pectoris of any significance. He does have a history of a previous coronary bypass surgery in 1996 and has remained stable for several years. 3. History of hypertension. 4. History of hyperlipidemia. 5. Seemingly renal dysfunction, probably acute on top of some chronic. RECOMMENDATION: From a cardiology viewpoint I would continue IV Cardizem as we have started him on. He seems to be rate controlled at this time. I will not make any further changes from cardiology until his bowel starts functioning properly. Thank you again for the opportunity to participate in his evaluation. We will follow him along.
[2016-11-03] MEDS: LACTULOSE PO SCH ×2 (11:06→21:09)
[2016-11-03] MEDS: CARDIZEM 100 MG/NS 100 ML IV SCH ×2 (11:07→21:09)
[2016-11-03] MEDS: LOVENOX SUBQ SCH (14:25)
[2016-11-03] MEDS ORDERED: CHLORASEPTIC SPRAY MT PRN (15:47)
[2016-11-03] MEDS ORDERED: CALMOSEPTINE OINTMENT TOP ONE (18:27)
[2016-11-04] MEDS: PROTONIX IV SCH (05:04)
[2016-11-04] MEDS: CARDIZEM 100 MG/NS 100 ML IV SCH ×4 (05:04→22:27)
[2016-11-04] MEDS: NS 1,000 ML IV SCH ×3 (05:06→22:28)
[2016-11-04 06:10] LABS: AGAP 15; ALBUMIN 3.1 g/dL (3.5-5.0); BUN 21 mg/dL (8-22); CALCIUM 8.2 mg/dL (8.8-10.2); CHLORIDE 101 mmol/L (98-107); COSMO 283; MAGNESIUM 1.8 mg/dL (1.5-2.7); POTASSIUM 3.8 mmol/L (3.5-5.1); SODIUM 139 mmol/L (136-145); TCO2 23 mmol/L (25-35)
[2016-11-04] MEDS: HUMULIN R SUBQ SCH ×4 (06:23→22:28)
--- NOTE | 2016-11-04 06:42 | PROGRESS NOTE ---
DATE: 11/04/2016 SUBJECTIVE: The patient is more distended today. Does report some bilateral lower quadrant discomfort. He says he is passing gas. OBJECTIVE: Vital Signs: Patient is currently afebrile. His vital signs have been stable. General: No acute distress. Alert, interactive, male looks stated age. HEENT: Normocephalic, atraumatic. Pupils equal, round, reactive to light. Mucous membranes moist. Oropharynx benign. Neck: Supple. NG tube in place. Cardiovascular: Appears regular for the majority of the time at this point. Lungs: Grossly clear. Abdomen: Distended again. Tighter overall than previous exams. He does have bowel sounds. He has some mild discomfort in the bilateral lower quadrants. Extremities: Moves all extremities. Neurologic: Grossly intact. Skin: No signs of jaundice. Vascular: All extremities perfused. LABORATORY: Reviewed from yesterday. ASSESSMENT AND PLAN: An 86-year-old, male with partial small-bowel obstruction with new onset atrial fibrillation. 1. New onset atrial fibrillation. At this time, he is being managed by the Hospitalist and Cardiology. We will continue to follow him. 2. Partial small-bowel obstruction. At this time, the patient did have an increase in his distention. We will put him back to being n.p.o. and place his NG tube back to suction. I am concerned that he might not improve. I discussed with the patient the possibility of surgical intervention. 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 Lorenzana. We will consult Dr. Lorenzana. Probably there is a chance he may require still surgical intervention, although he made some improvement. We will also get an abdominal flat and upright this morning.
[2016-11-04] MEDS ORDERED: HEPARIN SUBQ SCH (08:00)
--- NOTE | 2016-11-04 08:40 | PROGRESS NOTE ---
DATE: 11/04/2016 SUBJECTIVE: Mr. Tucker is doing better. The abdomen is less tense. OBJECTIVE: Vital Signs: Remains afebrile. Pulse 100, respirations 20, blood pressure 157/76. Lungs: Clear in all lung moore. Cardiovascular exam: Regular rhythm and rate without murmur or S3. Abdomen: Soft. Skin: Warm and dry. Neurologic: States he is pretty comfortable. HOSPITAL COURSE: 1. His blood sugars are 110, 148 and 135. The patient to get an x-ray today of his tummy. If he has small bowel obstruction, continue present regimen. NG tube in place. Dr. Toney following. He has put it back to suction. He feels that abdomen was more distended this morning. He has bilateral lower quadrant discomfort. He has got a possibility of surgical intervention. He wants to have his normal burlapper to see him for a second opinion with Dr. Lorenzana. We consulted Dr. Lorenzana. Probably there is a chance that he requires still surgical intervention, although he made some improvement. We will see what the film shows. 2. Atrial fibrillation. Rate is controlled. Hemodynamics remained stable. 3. Blood pressures look good. LABS: Reviewed labs from this morning. Sodium 139, potassium 3.8, chloride 101, bicarbonate 23, BUN 21, creatinine 1.0. Blood sugar 148, 143, 144 and 135. Review of orders: Continue present regimen. He is on normal saline at 75 mL an hour. He is on Cardizem drip. Getting lactulose 30 mL p.o. b.i.d. Some Protonix 40 mg IV q. 24 hours.
--- NOTE | 2016-11-04 09:18 | Diag Imaging Result Document ---
PROCEDURE NAME: ABDOMEN FLAT/UPRIGHT - 11/04/2016 FLAT AND UPRIGHT ABDOMEN: FINDINGS: There is barium throughout much of the colon. The small bowel barium which was present on 11/02/2016 has entirely cleared. There is an NG tube with its tip in the stomach. There is still considerable gaseous dilatation of small-bowel loops throughout the abdomen. There is gas and stool in the rectum. IMPRESSION: Passage of barium into the colon. Residual small-bowel dilatation.
[2016-11-04] MEDS: LACTULOSE PO SCH ×2 (09:22→21:49)
--- NOTE | 2016-11-04 09:28 | PROGRESS NOTE ---
DATE: 11/04/2016 CHIEF COMPLAINT: Abdominal distention and irregular heartbeat. SUBJECTIVE: Mr. Tucker has been put back on suction. He had been started on clear liquids, however, unfortunately his bowel obstruction has not subsided and he is back on suction. He denies having chest pain. His monitor and storage bin tender shows controlled atrial fibrillation. OBJECTIVE: Vital signs: Today blood pressure is 147/94. Temperature is 97.7. Pulse fluctuates between 85 to 99 beats per minute. At times it gets a little over 100. Respirations 14. General: He is awake, alert, and oriented. HEENT: He has an NG tube in place. Respiratory: Chest shows diminished breath sounds at the bases and occasionally some crepitance. Cardiovascular: Heart sounds are irregularly irregular. I do not hear a gallop or murmur. Gastrointestinal: The abdomen is markedly distended, tympanitic, and slightly tender to palpation. Extremities: The extremities show good pulses. No edema. Neurological: He moves all 4 extremities and follows commands. His laboratory work on 11/04/2016 showed a sodium of 139, potassium 3.8, BUN 21 , creatinine 1, carbon dioxide 23, and chloride 101. His albumin is 3.1. IMPRESSION: 1. A patient who has developed paroxysmal atrial fibrillation in the midst of a small bowel obstruction. 2. History of previous coronary artery bypass surgery with a stable clinical course for many years post bypass. RECOMMENDATION: From a cardiology viewpoint I would continue IV Cardizem at the present dosage. I believe this patient probably needs to go to the operating room for an exploratory laparotomy and from a cardiac viewpoint I think he is as good as he is going to get to withstand the operation. I have discussed this with Dr. Omar Toney on the phone and also I contacted Dr. Lorenzana on the phone. A second opinion has been requested by the patient's family prior to proceeding with the laparotomy. I also had a long conversation with the patient and his son and I told them that from the Cardiology/internal medicine viewpoint ,if he had reached the point from where he would benefit by doing surgery ,he will not gain anything by delaying the procedure and in fact he may probably get more malnourished and weaker every day that goes by. The patient and the son are in agreement ,in general ,at this point in time, and ,they are awaiting the opinion from Dr. Salomón to make a final decision. Thank you again. We will be happy to follow him postoperatively. RYDER
[2016-11-04] MEDS ORDERED: MEFOXIN 2 GM/NS 50 ML IV ONE (11:04)
[2016-11-04] MEDS ORDERED: DULCOLAX PR ONE (12:32)
--- NOTE | 2016-11-04 13:17 | CONSULTATION ---
DATE OF CONSULTATION: 11/04/2016 REASON FOR REFERRAL: Small bowel obstruction. HISTORY OF PRESENT ILLNESS: This is an 86-year-old, white male, who has been seen in our office before. His last colonoscopy was in 2011. At that time he had hemorrhoids and diverticulosis. He has had problems with constipation in the past. The patient reports that he started having abdominal distention and discomfort over the weekend. It became worse and he came in to the hospital for evaluation. A CT scan showed a bowel obstruction. He has a NG tube to low intermittent suction. Abdominal x-ray done today showed barium throughout the colon, considerable gaseous dilation of the small bowel loops throughout the abdomen, gas and stool in the rectum. He has been seen by Dr. Toney and has been tentatively placed for exploratory laparotomy for this afternoon. PAST MEDICAL HISTORY: Hyperlipidemia, hypertension, and diabetes. PAST SURGICAL HISTORY: Spine surgery and bilateral inguinal hernia repair. SOCIAL HISTORY: Denies tobacco or alcohol use. He is . He has a son that is very attentive and helps with his care. ALLERGIES: To Lyrica causing altered mental status. HOME MEDICATIONS: Tenormin 25 mg daily, aspirin 81 mg daily, Vytorin 10/40 mg every night, Cymbalta 30 mg daily, vitamin B6 50 mg daily, Levemir 10 units every night, vitamin D2 50,000 units as directed, temazepam 30 mg every night, multivitamin daily, and thiamine 100 mg daily. REVIEW OF SYSTEMS: Per history of present illness PHYSICAL EXAMINATION: Vital Signs: Temperature 98.6 degrees, pulse 74, respirations 12, blood pressure 154/84. General Appearance: Patient is awake and alert. In no acute distress. HEENT: Has a NG tube to low intermittent suction. Respiratory: Lung sounds clear. Cardiovascular: Regular rate. Abdomen: Distended. NG to low intermittent suction. He does have some bowel sounds. LABORATORY: Hematology last done on 11/02/2016, WBC 4.60, hemoglobin 14.6, hematocrit 45.1. MCV 97.4. Chemistry: Sodium 139, potassium 3.8, chloride 101, CO2 23, BUN 21, creatinine 1.0, glucose 144. IMAGING: Abdominal x-ray today showed passage of barium into the colon and residual small bowel dilatation. ASSESSMENT AND PLAN: 1. Bowel obstruction. 2. Atrial fibrillation. 3. He has continued abdominal distention. Will give a Dulcolax suppository today. He has possible plans for exploratory laparotomy by Dr. Toney later today. I have discussed this case with Dr. Bustos. We will continue to follow and be available if needed. Thank you for this consultation. Dictated by SMITHA Love for Babatunde Lorenzana MD
[2016-11-04] MEDS ORDERED: MARCAINE 0.25% PF ONE ×2 (15:56→15:57)
[2016-11-04] MEDS: LOVENOX SUBQ SCH (15:56)
[2016-11-04] MEDS ORDERED: SODIUM CHLORIDE 0.9% 20 ML ONE (15:57)
[2016-11-04] MEDS ORDERED: EXPAREL 1.3% ONE (15:58)
[2016-11-04] MEDS ORDERED: CEFOXITIN ONE (16:01)
[2016-11-04] MEDS ORDERED: SODIUM CHLORIDE ONE (16:01)
[2016-11-04] MEDS ORDERED: MEFOXIN 2 GM/NS 50 ML ONE (16:02)
[2016-11-04] MEDS ORDERED: FENTANYL ONE (18:21)
[2016-11-04] MEDS ORDERED: DIPRIVAN 1% ONE (18:22)
[2016-11-04] MEDS: DILAUDID ONE ×4 (18:45→19:19)
--- NOTE | 2016-11-04 19:11 | OPERATIVE NOTE ---
PROCEDURE DATE: 11/04/2016 PREOPERATIVE DIAGNOSIS: Small-bowel obstruction. POSTOPERATIVE DIAGNOSES: 1. Small-bowel obstruction secondary to adhesions in the right lower quadrant. 2. Nonpathologic Meckel's diverticulum noted. PROCEDURES: 1. Exploratory laparotomy. 2. Small-bowel resection with stapled [id number] functional end-to-end anastomosis. SURGEON: Omar Toney MD. SIGN MAKER: None. ANESTHESIA: General endotracheal. INTRAOPERATIVE FINDINGS: As above. COMPLICATIONS: None at time of dictation. ESTIMATED BLOOD LOSS: 150 mL. SPECIMENS REMOVED: Small bowel. BRIEF HISTORY: The patient is an 86-year-old, male who presented with a bowel obstruction. He initially showed some improvement. We did have a small bowel series that showed contrast passing through the small bowel all the way to the colon although there was some slowing down noted in the right lower quadrant. He initially improved but then had a deterioration and had a re-distention and worsening of his bowel obstruction. Given this we elected to perform exploratory laparotomy. The risks, benefits, and alternatives were discussed. He voiced understanding and wished to proceed with procedure. DESCRIPTION OF PROCEDURE: After informed consent was obtained, patient brought to the operative theatre, transferred to the operating table and placed in the supine position. General endotracheal anesthesia was then performed without complication. A formal time-out was then performed confirming patient, date, procedure. All were in agreement. At that time, attention was given to the abdomen. A midline incision was made through which we entered the abdomen. Upon entering the abdomen, he had a significant amount of distended small bowel which essentially eviscerated itself. We ran the small bowel multiple times from the ligament Treitz to ileocecal valve. There appeared to be an area of adhesions noted in the right lower quadrant near the terminal ileum. We used sharp dissection to dissect out these adhesions. There was an area due to the adhesions that had some vascular compromise which we removed. This measured approximately 3 cm in total. Small bowel re-stapled across this. Upon doing our anastomosis we were able to drain some of the significant succus that was in the small bowel to relieve the distention. We then performed a stapled [id number] functional end-to-end anastomosis with good results. We placed a stitch in the crotch to protect the anastomosis. We irrigated out the abdomen copiously. We ran the small bowel again. There was no other pathology. The colon that was visualized appeared to be normal. There were no obvious masses noted in the colon. There were no other masses noted. The NG tube was in the stomach. We irrigated out the abdomen copiously until the suction fluid was clear. We then were able to close the abdomen using interrupted 0 Vicryl for the fascia. We stapled the skin loosely. The patient tolerated the procedure and transferred back to the recovery room in stable condition. Postoperatively, we will wait for return of bowel function.
[2016-11-04] MEDS ORDERED: MORPHINE PCA ONE (19:13)
[2016-11-04] MEDS ORDERED: ZOFRAN IV PRN ×2 (20:33→21:37)
[2016-11-04] MEDS ORDERED: MORPHINE PCA IV PRN (20:42)
[2016-11-04] MEDS ORDERED: BENADRYL IV PRN (21:37)
[2016-11-04] MEDS ORDERED: LR 1,000 ML IV SCH (21:37)
[2016-11-04] MEDS ORDERED: NARCAN IV PRN (21:37)
[2016-11-04] MEDS: MEFOXIN 2 GM/NS 50 ML IV SCH (22:35)
[2016-11-05] MEDS: CARDIZEM 100 MG/NS 100 ML IV SCH ×6 (02:19→22:40)
[2016-11-05] MEDS: PROTONIX IV SCH (04:16)
[2016-11-05] MEDS: MEFOXIN 2 GM/NS 50 ML IV SCH ×4 (04:16→21:25)
[2016-11-05] MEDS: NS 1,000 ML IV SCH ×2 (04:25→16:27)
[2016-11-05] MEDS: HUMULIN R SUBQ SCH ×4 (06:12→22:40)
--- NOTE | 2016-11-05 06:18 | PROGRESS NOTE ---
DATE: 11/05/2016 SUBJECTIVE: The patient doing well after his exploratory laparotomy. No major issues. His heart rate has come back up into the 120s to 130s. He has been restarted on his Cardizem drip. No other issues reported by the nursing staff. OBJECTIVE: Vital Signs: Patient is currently afebrile. His vital signs have been stable. The only abnormalities is atrial fibrillation with rapid ventricular response in the one teens to 120s. General: No acute distress. Resting comfortably. Cardiovascular: Irregularly irregular. Lungs: Grossly clear. Abdomen: Soft. Less distended but appropriately tender to palpation. Dressing in place. ASSESSMENT AND PLAN: An 86-year-old, male with status post exploratory laparotomy for bowel obstruction with small-bowel resection with new onset atrial fibrillation. 1. New onset atrial fibrillation. At this time, patient is on Cardizem drip. He is being seen by the cardiology team. We will continue to follow. 2. Postoperative day #1 from exploratory laparotomy and small-bowel resection. At this time, we will await return of bowel function. Suspect he will be somewhat sluggish given his bowel obstruction going into this process. We may need to consider a PICC line and TPN versus just Clinimix here in the next couple days if he does not show signs of return of bowel function.
--- NOTE | 2016-11-05 07:24 | PROGRESS NOTE ---
DATE: 11/05/2016 SUBJECTIVE: He was awake, was sleeping but easy to arouse. He states he had a pretty good night. He is frustrated he cannot anticipate the pain and the abdominal cramping is pretty severe.Vital signs: Temperature 97.7 degrees, pulse 127, respirations 16, blood pressure 138/68, heart rate has been between 100 and 130, sinus. Abdomen: Absent bowel sounds. Extremities: Without clubbing, cyanosis, or edema. Cardiovascular: Regular rhythm and rate without murmur or S3. Note: Monitor shows atrial fibrillation, and has remained in atrial fibrillation through the night. : Urine output 1700 mL. LAB: We will check some more this morning. Sugars have been 149, 134, 140. ASSESSMENT AND PLAN: 1. New onset atrial fibrillation. The patient is on Cardizem drip. Remains in atrial fibrillation. Rate is controlled. 2. Postop day #1 for exploratory laparotomy and small-bowel resection. At this time, await return of bowel function. I suspect it is going to be sluggish. Consider peripherally inserted central catheter line, total parenteral nutrition versus just Clinimix. 3. Chronic obstructive pulmonary disease. Was actually admitted for chronic obstructive pulmonary disease exacerbation. His breathing has done much better. 4. Blood sugars in the diabetic range. 5. Review of his orders. The patient was on heparin 5000 mg subcutaneously q.8 hours. He is on lactated Ringer. Keep vein open right now. Cefoxitin 2 g q.6 hours, lactulose 30 mL p.o. b.i.d., which I believe will stop right now. He is not getting anything p.o. He is on normal saline at 75 mL an hour, Protonix 40 mg q.24 hours, diltiazem drip.
[2016-11-05 08:09] LABS: BASO% 0.1 % (0.0-0.8); HEMATOCRIT 42.7 % (42.0-52.0); HEMOGLOBIN 13.9 g/dL (14.0-18.0); IMM GRAN# 0.15 X1000 (0.0-0.04); IMM GRAN% 0.8 % (0.0-0.5); LYMPH# 0.76 X1000 (1.2-3.4); LYMPH% 4.2 % (20.5-51.1); MANUAL DIFF NEEDED? YES; MCH 31.2 PG (27-31); MCHC 32.6 g/dL (33-37); MCV 95.7 FL (81-99); MONO# 1.55 X1000 (0.11-0.59); MONO% 8.6 % (1.7-9.3); MPV 10.2 FL (7.4-10.4); NEUT% 86.3 % (42.2-75.2); PLT 204 X1000 (130-400); RBC 4.46 XMIL (4.7-6.1)
--- NOTE | 2016-11-05 08:25 | PROGRESS NOTE ---
DATE: 11/05/2016 CHIEF COMPLAINT: Abdominal distention, irregular heartbeat. SUBJECTIVE: Mr. Tucker underwent laparotomy yesterday. They released some adhesions. He says that he is feeling better. His telemetry shows atrial fibrillation with controlled response. At times, he gets over 100, but most of the time, he is below 100. He is slightly confused. I believe he is getting a pain pump. OBJECTIVE: Vital signs: His blood pressure today is 138/68, temperature 97.7, pulse 105, respirations 16. General: He is awake and follows some commands. HEENT: Unremarkable. Chest: Decreased breath sounds at the bases. Cardiac: Heart sounds irregularly irregular. Abdomen: Less distended than yesterday. He has an incision that is covered with a dressing in the abdomen. Extremities: Showed no edema. Neurologic: He follows commands. No obvious deficits. IMPRESSION: 1. Patient who presented with a small bowel obstruction. Now he has undergone laparotomy yesterday with lysis of adhesions. He is on the 1st postoperative day. 2. Atrial fibrillation with relatively controlled response. 3. history of severe coronary artery disease, status post coronary bypass surgery in the past. RECOMMENDATIONS: At this point in time, we will continue the present approach, supportive therapy. We will continue IV Cardizem. We may use some IV digoxin to optimize his heart rate. Further advice will be forthcoming. Thank you for the opportunity to participate in his evaluation. MTDD
[2016-11-05 08:28] LABS: ALBUMIN 2.5 g/dL (3.5-5.0); CALCIUM 7.7 mg/dL (8.8-10.2); POTASSIUM 4.7 mmol/L (3.5-5.1); TOTAL BILIRUBIN 0.65 mg/dL (0.20-1.00); TOTAL PROTEIN 5.2 g/dL (6.3-8.3)
[2016-11-05 08:39] LABS: LYMPHS 6 % (21-51); MONO 3 % (1-9)
[2016-11-05] MEDS: HEPARIN SUBQ SCH ×2 (09:01→16:32)
[2016-11-05] MEDS: LANOXIN IV SCH ×2 (09:01→16:31)
[2016-11-05] MEDS ORDERED: ZOFRAN ONE (10:06)
[2016-11-05] MEDS ORDERED: NEOSTIGMINE ONE (10:06)
[2016-11-05] MEDS ORDERED: XYLOCAINE-MPF 2% ONE (10:07)
[2016-11-05] MEDS ORDERED: NORCURON ONE (10:07)
[2016-11-05] MEDS ORDERED: ANESTHESIA PB SET 88 IN 5742 ONE (10:07)
[2016-11-05] MEDS ORDERED: ROBINUL ONE (10:07)
[2016-11-05] MEDS ORDERED: QUELICIN (DOSE) ONE (10:07)
[2016-11-05] MEDS ORDERED: EPHEDRINE ONE (10:07)
[2016-11-05] MEDS ORDERED: LR 2,000 ML ONE (10:07)
[2016-11-05] MEDS ORDERED: OFIRMEV 1000 MG/ISOTONIC SOLN 100 ML ONE (10:07)
[2016-11-05] MEDS ORDERED: EXTENSION SET 32 IN 4522 ONE (10:07)
[2016-11-06] MEDS: LANOXIN IV SCH (01:15)
[2016-11-06] MEDS: HEPARIN SUBQ SCH ×4 (01:16→23:39)
[2016-11-06] MEDS: MEFOXIN 2 GM/NS 50 ML IV SCH ×4 (03:25→20:53)
[2016-11-06] MEDS: SODIUM CHLORIDE 0.9% INJ SCH (05:27)
[2016-11-06] MEDS: PROTONIX IV SCH (05:27)
[2016-11-06] MEDS: NS 1,000 ML IV SCH ×2 (05:27→18:58)
[2016-11-06 05:32] LABS: MANUAL DIFF NEEDED? NO
[2016-11-06 05:45] LABS: BASO% 0.1 % (0.0-0.8); EOS# 0.07 X1000 (0.0-0.7); EOS% 0.5 % (0.0-10.0); HEMATOCRIT 37.7 % (42.0-52.0); IMM GRAN# 0.07 X1000 (0.0-0.04); IMM GRAN% 0.5 % (0.0-0.5); LYMPH# 0.77 X1000 (1.2-3.4); LYMPH% 5.8 % (20.5-51.1); MCH 31.1 PG (27-31); MCHC 31.8 g/dL (33-37); MCV 97.7 FL (81-99); MONO# 1.09 X1000 (0.11-0.59); MONO% 8.2 % (1.7-9.3); MPV 10.2 FL (7.4-10.4); NEUT% 84.9 % (42.2-75.2); PLT 168 X1000 (130-400); RBC 3.86 XMIL (4.7-6.1)
[2016-11-06 05:57] LABS: ALBUMIN 2.5 g/dL (3.5-5.0); CALCIUM 7.7 mg/dL (8.8-10.2); MAGNESIUM 1.7 mg/dL (1.5-2.7); POTASSIUM 4.6 mmol/L (3.5-5.1); TOTAL BILIRUBIN 0.4 mg/dL (0.20-1.00); TOTAL PROTEIN 5.3 g/dL (6.3-8.3)
--- NOTE | 2016-11-06 06:04 | PROGRESS NOTE ---
DATE: 11/06/2016 SUBJECTIVE: The patient is feeling okay. Still no passing of flatus. His abdomen is less distended from yesterday. No major issues reported by the nursing staff. OBJECTIVE: Vital Signs: Patient is currently afebrile. His vital signs were stable. General: No acute distress. Resting comfortably in bed. Cardiovascular: Somewhat irregular. Lungs: Coarse sounds noted. Abdomen: Soft, less distended compared to yesterday. Still some hypoactive bowel sounds. LABORATORY: At this time is still pending. Laboratories from yesterday showed a white blood cell count of 17. ASSESSMENT AND PLAN: 1. An 86-year-old, male, postoperative day #2 from exploratory laparotomy with small- bowel resection and lysis of adhesions. 2. Postoperative state: At this time, patient is doing well clinically. He did have a leukocytosis yesterday which could be related to stress. I have kept him on antibiotics, and if his white count continues to improve we might be able to stop his antibiotics over the weekend. Will need to wait for return of bowel function. My partner, Dr. Rebolledo, is going to follow over the weekend. 3. New onset atrial fibrillation. At this time, is being managed by the cardiology service. 4. Multiple medical comorbidities being managed by the hospitalist service.
[2016-11-06] MEDS: HUMULIN R SUBQ SCH ×4 (06:17→20:53)
--- NOTE | 2016-11-06 07:35 | PROGRESS NOTE ---
DATE: 11/06/2016 SUBJECTIVE: His tummy is tender, a lot of abdominal cramping. Not passing any gas yet. He had a pretty good night. Still has NG tube in, clamped off at this time. Remains afebrile. OBJECTIVE: Temperature 97.7 degrees, pulse 74, respirations 20, blood pressure 155/53. O2 saturations 97%. Lungs are clear in all lung moore anterior lateral. Cardiovascular: Regular rhythm and rate without murmur or S3. Abdomen distended and diffusely uncomfortable. Urine output over 1100 mL. LABORATORY DATA: Lab from this morning: White count 13,250. Hematocrit is 37, platelet count 168,000. Chemistries: Sodium 143, potassium 4.6, chloride 107, bicarb 20. BUN 26, creatinine 1.2. Blood sugars 134, 126, and 117. Albumin 2.5. ASSESSMENT AND PLAN: 1. Small bowel obstruction status post laparotomy and resection of small bowel. Second postoperative day. 2. Atrial fibrillation, controlled. Hemodynamically looks good. 3. Status post coronary artery bypass graft, aware. 4. Chronic obstructive pulmonary disease. Good air and gas exchange. 5. Diabetes mellitus. Suspected sugars in diabetic range. 6. The patient's lab: Creatinine is down a little bit. CBC: White blood cell count is down some. Continue present treatment. He is on heparin 5000 units subcutaneously q. 8, cefoxitin 2 g IV q.6, on Cardizem drip, normal saline 75 mL an hour, Protonix 40 mg daily, getting morphine for pain.
[2016-11-06] MEDS ORDERED: LASIX IV ONE (08:08)
[2016-11-06] MEDS ORDERED: ALBUMIN 25% IV ONE (08:08)
--- NOTE | 2016-11-06 08:25 | PROGRESS NOTE ---
DATE: 11/06/2016 CHIEF COMPLAINT: Irregular heartbeat, abdominal distension. SUBJECTIVE: Mr. Tucker remains in atrial fibrillation. He is complaining of abdominal pain. His abdomen is still distended. He has an NG tube connected to suction. His heart rate appears to be better controlled. OBJECTIVE: Vital signs: Blood pressure is 169/61, temperature 98.2, pulse 78, respirations 18. General: He is awake, in no distress. He is not confused. HEENT: Unremarkable. Chest: Diminished breath sounds at the bases. Cardiac: Heart sounds irregularly irregular. Abdomen: Distended, tender, tympanitic. Extremities: No edema. Neurological: Follows commands, moves four extremities. BLOOD WORK: Sodium today is 143, potassium is 4.6, BUN 26, creatinine 1.2. Albumin is down to 2.5. His white count is 13,250, hemoglobin 12 g, platelet count is 168,000. IMPRESSION: 1. Patient who is status post laparotomy for bowel obstruction. This is the 2nd postoperative day. 2. Atrial fibrillation, chronic, controlled response. 3. Coronary heart disease status post bypass surgery. 4. Protein depletion. RECOMMENDATION: We will continue present supportive therapy. I will give him one dose of Lasix with albumin and magnesium because he appears to be slightly wet today. We will get a chest x-ray in the morning. I would discuss with General Surgery about nutritional support for this patient. It has been 7 days since he ate last time. He is probably developing rapid catabolic breakdown. Further advice will be forthcoming.
[2016-11-06] MEDS: MORPHINE IV PRN ×3 (08:33→21:53)
[2016-11-06] MEDS: CARDIZEM 100 MG/NS 100 ML IV SCH ×3 (08:40→23:40)
[2016-11-06] MEDS ORDERED: MAGNESIUM SULFATE 2 GM/S.W.I. 50 ML IV ONE (09:00)
[2016-11-06 12:31] LABS: INR 1.09; PROTIME 11.6 Seconds (9.2-11.7)
[2016-11-06] MEDS ORDERED: D10W 1,000 ML IV SCH (14:15)
[2016-11-06] MEDS ORDERED: NS 250 ML ONE (15:09)
--- NOTE | 2016-11-06 16:59 | Diag Imaging Result Document ---
PROCEDURE NAME: CHEST-PORTABLE - 11/06/2016 PORTABLE CHEST AT 1550 HOURS: COMPARISON: 11/27/2013. FINDINGS: There is a PICC line which enters from the right. The tip of the PICC line is at the expected location of the cavoatrial junction. There is a nasogastric tube present, but the distal end is obscured by technical factors and/or overlying EKG wires. Allowing for the AP projection, heart size appears within normal limits. There are sternal wires from previous surgery again seen. The lungs appear grossly clear. There is a small left pleural effusion. There is no pneumothorax seen. IMPRESSION: 1. Tip of PICC line at cavoatrial junction. 2. Small left pleural effusion. Verbal results on PICC line placement provided to Too in the label coder at 4:06 p.m. on 11/06/2016.
[2016-11-06] MEDS: TPN ELECTROLYTES 20 ML, MAGNESIUM SULFATE 5 MEQ, POTASSIUM CHLORIDE 20 MEQ, M.V.I.-12 1... IV SCH ×8 (17:56)
[2016-11-06] MEDS: LIPOSYN 20% 500 ML IV SCH (17:58)
[2016-11-07] MEDS: MEFOXIN 2 GM/NS 50 ML IV SCH ×5 (00:24→22:17)
[2016-11-07] MEDS: CARDIZEM 100 MG/NS 100 ML IV SCH (03:47)
[2016-11-07] MEDS: MORPHINE IV PRN ×2 (04:34→21:39)
[2016-11-07] MEDS: PROTONIX IV SCH (05:13)
[2016-11-07] MEDS: SODIUM CHLORIDE 0.9% INJ SCH (05:13)
[2016-11-07 05:35] LABS: AGAP 10; BUN 25 mg/dL (8-22); CALCIUM 7.8 mg/dL (8.8-10.2); CHLORIDE 106 mmol/L (98-107); COSMO 292; MAGNESIUM 2.1 mg/dL (1.5-2.7); SODIUM 142 mmol/L (136-145); TCO2 26 mmol/L (25-35)
[2016-11-07 05:38] LABS: PREALBUMIN 4.2 mg/dL (20-40)
[2016-11-07] MEDS: HUMULIN R SUBQ SCH ×4 (06:17→21:02)
[2016-11-07] MEDS ORDERED: CARDIZEM 100 MG/NS 100 ML IV SCH ×2 (06:19→13:00)
--- NOTE | 2016-11-07 08:37 | PROGRESS NOTE ---
DATE: 11/07/2016 SUBJECTIVE: Abdomen still sore, but feels a little better. He can feel a little rumbling in this tummy. He has not passed any gas. The NG tube is still in place, but clamped off. OBJECTIVE: Vital Signs: Temp 98 degrees, pulse 68, respirations 20, blood pressure 161/69. HEENT: The pupils are equal and round. CVP less than 6 cm. Lungs: Clear in all lung moore. Cardiovascular exam: Regular rhythm and rate without murmur or S3. Abdomen: Abdomen with distention and sore. Wound looks unremarkable. Extremities: Without clubbing, cyanosis, or edema. : Urine output 2000. LABS: White count has come down to 13,250, hematocrit 37, platelet count 168,000. Chemistry: Sodium 142, potassium 4.0, chloride 106, bicarbonate 26, BUN 25, creatinine 1.1. Blood sugars 145, 175 and 172. Pre-albumin was 4.2. X-RAYS: X-ray from yesterday, chest x-ray, revealed tip of the PICC line in the cardio-atrial junction with small left pleural effusion. Otherwise, the lung moore are clear. Nasogastric tube present. ASSESSMENT AND PLAN: 1. Patient status post laparotomy for bowel obstruction third postoperative day, making progress. 2. Atrial fibrillation. Rate is controlled. 3. Coronary artery disease status post grafting. 4. Protein depletion with poor protein calorie intake for the last couple weeks. 5. Diabetes mellitus type 2. Sugars under good control. 6. Chronic obstructive pulmonary disease, aware. Respiratory status is good. Review of his orders: He is on diltiazem drip. Will switch that to p.o. 30 mg q. 6 hours. He is still on cefoxitin 2 g q. 6 hours. White count has come down. He is on heparin 5000 units subcutaneous q. 8 hours. He is on Protonix 40 mg IV daily.
[2016-11-07] MEDS: HEPARIN SUBQ SCH ×2 (08:52→16:03)
[2016-11-07] MEDS: CARDIZEM PO SCH ×3 (08:52→21:02)
[2016-11-07] MEDS: NS 1,000 ML IV SCH (09:13)
--- NOTE | 2016-11-07 10:30 | PROGRESS NOTE ---
DATE: 11/07/2016 SUBJECTIVE: Mr. Chelsi Tucker is an 86-year-old white male, who is the former [facility]. He is now postop day 3 after undergoing an exploratory laparotomy with small-bowel resection per Dr. Toney on 11/04/2016. He is in the CICU because of atrial fibrillation, for which he is being treated with IV diltiazem. He still has an NG tube in place and his abdomen is distended. He is receiving total parental nutrition. He remains n.p.o. He is awake and cooperative. He complains of tenderness along his incision. His heart rate is 68, blood pressure 161/69, O2 saturation 96%. He has good urine output. His BUN and creatinine are 25 and 1.1. PLAN: We will try to increase his activity. We will keep his NG tube in place for now until he has better bowel activity and less abdominal distention. Will review his fluids now that TPN has been started and be sure he is not receiving too much fluids. He remains on IV Mefoxin.
[2016-11-07] MEDS ORDERED: SODIUM PHOSPHATE 40 MEQ in NS 250 ML IV ONE (12:17)
--- NOTE | 2016-11-07 12:43 | PROGRESS NOTE ---
DATE: 11/07/2016 CHIEF COMPLAINT: Abdominal distention, discomfort, irregular heartbeat. SUBJECTIVE: Mr. Tucker is feeling generally better today. He is sitting at the side of the bed. His abdomen is less tense and he is not having any chest discomfort or shortness of breath. OBJECTIVE: Vital signs: Blood pressure is 161/69, temperature 98 degrees, pulse 68, respirations 20. General: He is awake, alert, oriented, in no distress. HEENT: Unremarkable. Chest: Chest shows diminished breath sounds at the bases. Heart sounds are irregularly irregular. Abdomen: Distended. Bowel sounds are diminished. Extremities: Extremities show no edema. Neurological exam: Moves four extremities. LABORATORY: Blood work: Sodium 142, potassium 4.0, BUN 25, creatinine 1.1, chloride 106, carbon dioxide 26. His prealbumin level is very low at 4.2. Patient is presently getting TPN. IMPRESSION: 1. Atrial fibrillation with controlled response. 2. Malnutrition following his bowel obstruction. 3. Status post laparotomy for a small-bowel obstruction. Today is the third postoperative day. 4. The pathology report indicates that indeed he had some evidence of early bowel necrosis on the segment that was resected. 5. Coronary heart disease, previous coronary bypass procedure. RECOMMENDATIONS: At this point in time, we will continue supportive therapy. If he does not absorb Cardizem well by mouth, we may have to keep him on IV Cardizem for a while until bowel function returns to normal. Will follow him along.
[2016-11-07] MEDS: LIPOSYN 20% 500 ML IV SCH (16:03)
[2016-11-07] MEDS: TPN ELECTROLYTES 20 ML, MAGNESIUM SULFATE 5 MEQ, POTASSIUM CHLORIDE 20 MEQ, M.V.I.-12 1... IV SCH ×8 (16:03)
--- NOTE | 2016-11-07 20:57 | PROGRESS NOTE ---
DATE: 11/07/2016 Chelsi Tucker is an 86-year-old white male who 3 days ago underwent exploratory laparotomy with small-bowel resection per Dr. Toney. I saw him this morning. He seemed to be doing fairly well except his abdomen was distended. He got up in a chair and had a cough and the nurses noted some drainage from his lower midline incision. They notified me about that in the afternoon and the drainage seemed to persist and so I reevaluated him around 6 p.m. I removed a skin clip and it was clear that he had a facial dehiscence in the lower aspect of his midline wound with a knuckle of small bowel in the subcutaneous tissue of his wound. It was therefore that we urgently recommended return to the operating room for closure of the fascial dehiscence. I discussed it with the patient and his son. It was also noted that he was wheezing and I spoke with the anesthesiologist about this. The operating room crew was called about 6 p.m.
--- NOTE | 2016-11-07 21:05 | OPERATIVE NOTE ---
PROCEDURE DATE: 11/07/2016 PREOPERATIVE DIAGNOSIS: Fascial dehiscence of midline wound. POSTOPERATIVE DIAGNOSIS: Fascial dehiscence of midline wound. PRINCIPLE PROCEDURES: Exploration of midline wound with reclosure of fascia. SURGEON: Chelsi Rebolledo MD JIG HAND: HORACIO Hodge. ANESTHESIA: General. ESTIMATED BLOOD LOSS: 25 mL. DRAINS: None. INDICATIONS: Mr. Chelsi Tucker is an 86-year-old overweight white male diabetic who 3 days ago underwent exploratory laparotomy by Dr. Toney for a small bowel obstruction. During the operation he had a small bowel resection. The midline fascia was closed with interrupted [address] Toney's operative dictation. Today while in CIC he got up in a chair, coughed and the nurses noted that he had increased drainage from his lower midline incision. I saw him this evening and he had a fascial dehiscence with a loop of small bowel within the subcutaneous tissue. Urgent return to the operating room was recommended. FINDINGS: He had fascial dehiscence of the midline wound below the umbilicus. I palpated using my index finger as much of the remaining upper midline incision as I could and the fascia appeared to be intact. It appeared to only have a fascial dehiscence from the umbilicus to the end of the inferior aspect of this midline wound. There was small bowel in the subcutaneous tissue. There was no evidence of infection intraabdominally or succus. DESCRIPTION OF PROCEDURE: The patient was brought to the operating room, placed supine, received general anesthesia, and his entire abdomen was prepped and draped in a sterile field. He was already on Mefoxin. We took the anita out of the lower aspect of the midline wound and identified the dehiscence. The interrupted 0 Vicryl stitches had broken in this area of the lower midline. We made sure that with blunt finger dissection I took down any adhesions around the midline. I chose to repair this dehiscence with a running #1 Maxon stitch in addition to reinforcing our closure with 1 retention suture. Prior to closing the fascia, I felt the midline wound superiorly as far as I could through the fascial dehiscence and appeared to be intact. Using a ribbon I carefully reclosed the midline fascia with a running #1 Maxon stitch. The midline fascia was frayed but I felt the closure was satisfactory. Before completing the closure, using a #2 Prolene I placed a retention suture. Again I used a ribbon so as not to injure any of the bowel when taking this stitch. We tied the Maxon stitch. I loosely closed the skin with a skin clip anesthesia attending. We tied the retention suture. I placed Iodoform in between my skin clips into the subcutaneous tissue and then dry dressing was applied. He tolerated the procedure well. Plans are for him to go the recovery room and possibly return to the CICU if he is doing well. An NG tube and Davis catheter tube remain and I will speak to his son by phone.
[2016-11-07] MEDS ORDERED: FENTANYL ONE (21:21)
[2016-11-07] MEDS ORDERED: DIPRIVAN 1% ONE (21:22)
[2016-11-07] MEDS: DIPRIVAN 1% 100 ML IV SCH (22:26)
[2016-11-08] MEDS: HEPARIN SUBQ SCH ×4 (00:24→23:20)
[2016-11-08] MEDS: DIPRIVAN 1% 100 ML IV SCH ×6 (01:10→23:19)
[2016-11-08] MEDS: CARDIZEM PO SCH (03:57)
[2016-11-08] MEDS: MEFOXIN 2 GM/NS 50 ML IV SCH ×4 (04:01→21:00)
[2016-11-08 05:28] LABS: ALLEN TEST YES; BE 4.9 mmoll (-3.0-3.0); BLOOD TYPE ARTERIAL; DRAW SITE R RADIAL; METHB 1.8 % (0.0-1.5); O2(CT) 14.2 mL/dL (15.0-23.0); PCO2(98.6) 32 mmHg (35-45); PO2(98.6) 74 mmHg (60-100); SAMPLE BLOOD; SRATE 14 BPM; THB 10.6 g/dL (11.5-17.4); TVOL 700 mL; pH(98.6) 7.54 (7.35-7.45)
[2016-11-08 05:30] LABS: MODALITY VENTILATOR
[2016-11-08] MEDS: SODIUM CHLORIDE 0.9% INJ SCH (05:58)
[2016-11-08] MEDS: PROTONIX IV SCH (05:58)
[2016-11-08 06:30] LABS: AGAP 14; BUN 26 mg/dL (8-22); CALCIUM 7.4 mg/dL (8.8-10.2); CHLORIDE 106 mmol/L (98-107); COSMO 295; POTASSIUM 3.2 mmol/L (3.5-5.1); SODIUM 144 mmol/L (136-145); TCO2 24 mmol/L (25-35)
[2016-11-08] MEDS ORDERED: POTASSIUM CHLORIDE 40 MEQ/SWI 100 ML IV ONE (07:06)
[2016-11-08] MEDS: CARDIZEM 100 MG/NS 100 ML IV SCH ×2 (07:53→22:06)
[2016-11-08] MEDS: HUMULIN R SUBQ SCH ×5 (07:53→23:26)
--- NOTE | 2016-11-08 09:09 | PROGRESS NOTE ---
DATE: 11/08/2016 CHIEF COMPLAINT: Irregular heartbeat, abdominal distention. SUBJECTIVE: The events of 11/07, have been reviewed with the nurse at the bedside. The patient has suffered dehiscence of the wound and was taken emergently to the operating room by Dr. Rebolledo. This has been repaired and he has been transferred to the ICU for postoperative care. He has been intubated. He remains intubated at this time. He is sedated. His rate has been controlled and Cardizem has been used sparingly. OBJECTIVE: His blood pressure right now is 107/53, temperature 91, pulse 66, respirations 16. He is on FIO2 at 0.4. HEENT: Unremarkable. Chest: Shows symmetrical breath sounds. Cardiac: Heart sounds are irregularly irregular and distant. Abdomen: Distended. Bowel sounds are diminished. Extremities: Show no obvious edema. Neurologic: He is sedated. DIAGNOSTIC DATA: His blood work today: Sodium is 144, potassium is 3.2, BUN 26 , creatinine 1.1. His phosphorus is 2.2. He is on TPN right now. I do not have a reported chest x-ray from this morning. IMPRESSION: 1. Patient who had a small bowel obstruction. Yesterday, he was on his 3rd postoperative day. Unfortunately, he has suffered dehiscence of the wound and had to be taken back to the operating room emergently for repair of the dehisced wound. 2. Atrial fibrillation, persistent. 3. Coronary artery disease, post bypass. 4. Hypokalemia. 5. Protein deficient/protein depletion/malnutrition. RECOMMENDATIONS: We will evaluate a chest x-ray on him. We will replace potassium. We will use diltiazem as needed to maintain a heart rate between 60 to 90 beats per minute. We will continue nutritional support, as instituted by the surgical team. We may have to consult Pulmonary to help us with his respiratory status while he is intubated. Thank you again for the opportunity to participate in this evaluation. [facility]
--- NOTE | 2016-11-08 09:14 | PROGRESS NOTE ---
DATE: 11/08/2016 SUBJECTIVE: Mr. 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 He is now postop day 4 from exploratory laparotomy with a small-bowel resection per Dr. Toney. Last night, I had to take him back to surgery because of fascial dehiscence of the lower aspect of his midline wound. After surgery, we had placed him in the ICU for ventilation overnight. During the night, he became agitated and now he is on a propofol drip. Critical pulmonary and critical care medicine have been consulted to help with his ventilator and pulmonary status per our hospitalist. This morning, he is sedated, on the ventilator. OBJECTIVE: His heart rate is 77, blood pressure 130/55, O2 saturation 98%. His ABG is 7.54, PaO2 of 74, PaCO2 is 32. His base excess is 4.9. Lactate is 1.2. He is on assist-control of 14 at 40% FiO2, tidal volume of 700, +5 of PEEP. Chest x-ray is pending. He has a Davis catheter tube in place. Urine output has been adequate. BUN and creatinine are 26 and 1.1. His potassium is low at 3.2. He is afebrile. He has been on IV Mefoxin since surgery. He is on total parenteral nutrition. He still has an NG tube in place. His abdomen has been distended. He has had no real bowel activity. His wound dressing has been changed. It is intact. PLAN: I have spoken with his son and Dr. Gentry Silverman about his care at the bedside. Plan is to work to get him off the ventilator per pulmonary and then increase his activity in hopes that his bowel function returns shortly.
--- NOTE | 2016-11-08 09:47 | PROGRESS NOTE ---
DATE: 11/08/2016 SUBJECTIVE: Mr. Tucker had to go back to surgery for dehiscence of the lower part of his wound. He is in the unit. Was having a little bit of trouble weaning from the ventilator so kept him on last night. Dr. Rebolledo involved. Pulmonary is involved, came in to see him his morning. Appears comfortable. Family at the bedside. PHYSICAL EXAMINATION: Vital Signs: Temperature 97.7 degrees, pulse 77, respirations 14, blood pressure 130/55. HEENT: Pupils were equal and round. Lungs: Clear anterolateral. Cardiovascular Examination: Regular rhythm and rate without murmur or S3. Abdomen: Soft. Skin: Warm and dry. Is and Os: Good urine output, over a liter. LAB: From the 3rd. We will check some lab this morning. We will follow his CBC tomorrow but lab this morning, sodium 144, potassium 3.2, chloride 106, bicarb 24, BUN 26, creatinine 1.1. Blood sugar 145, 209, 163. Calcium 7.4. Phosphorus 2.2. ASSESSMENT AND PLAN: 1. Small-bowel obstruction, status post laparotomy with small-bowel resection per Dr. Toney. Dehiscence of his lower abdomen with a knuckle of small bowel in the subcutaneous tissue of the wound. It was therefore that they took him back and did a fascial dehiscence for closure of fascial dehiscence. Seems to be doing well. 2. On the ventilator. We will wean per Dr. Michelle as quickly as possible. 3. Patient with atrial fibrillation, rate is controlled. 4. History of coronary artery disease, status post bypass. No sign of active ischemia going on right now. We will check some more. CBC and electrolytes again in the morning. Supplement his potassium. Check magnesium as well. Magnesium was 2 so we are in good shape there. Phosphorus was a little low. I will give him some K-Phos today 5. Diabetes mellitus type 2. Blood sugars look good. 6. Review of his orders. I do not see any change at this time this.
[2016-11-08] MEDS ORDERED: POTASSIUM PHOSPHATE 40 MEQ in NS 250 ML IV ONE (10:00)
[2016-11-08] MEDS ORDERED: NS 400 ML IV ONE (14:56)
--- NOTE | 2016-11-08 16:00 | Diag Imaging Result Document ---
PROCEDURE NAME: CHEST-1 VIEW - 11/08/2016 CHEST SINGLE VIEW: COMPARISON: 11/06/2016. FINDINGS: The endotracheal tube is in good position. No change in right-sided PICC line. There are sternal wires and surgical clips. There is atelectasis or small infiltrates in the lung bases on the current exam, and I believe there is a small left effusion. The vessels are not distended. IMPRESSION: Basilar infiltrates or atelectasis with a small left effusion.
[2016-11-08] MEDS: DUONEB (A & A) INH SCH ×2 (16:09→23:36)
--- NOTE | 2016-11-08 16:13 | PROGRESS NOTE ---
DATE: 11/08/2016 SUBJECTIVE: Patient is resting. He is on the ventilator, sedated. OBJECTIVE: Vital Signs: Temperature 98.1 degrees, pulse 72, respirations 14, blood pressure 118/51. LABORATORY: Hematology on 11/06/2016 WBC 13.25, hemoglobin 12.0, hematocrit 37.7, MCV 97.7, platelet 168,000. Chemistry. Sodium 144, potassium 3.2, chloride 106, CO2 24, BUN 26, creatinine 1.1. Glucose 163. ASSESSMENT AND PLAN: Status post small bowel obstruction and post laparotomy with small-bowel resection. He then had dehiscence of his lower abdominal incision and had to be taken back to surgery for repair by Dr. Rebolledo. Patient is currently on the ventilator. He is sedated. Continue supportive care. GI will be available as needed. Dictated by SMITHA Love for Babatunde Lorenzana MD
[2016-11-08] MEDS: TPN ELECTROLYTES 20 ML, MAGNESIUM SULFATE 5 MEQ, POTASSIUM CHLORIDE 30 MEQ, M.V.I.-12 1... IV SCH ×8 (16:19)
--- NOTE | 2016-11-08 16:41 | CONSULTATION ---
DATE OF CONSULTATION: 11/08/2016 REASON FOR CONSULT: Postoperative ventilator management. REQUEST PHYSICIAN: Gentry Silverman MD IMPRESSION: 1. Postoperative respiratory failure. 2. Postoperative day 1 fascial dehiscence of the lower midline previous incision, emergent and postoperative day 4 exploratory lap with small bowel resection secondary to adhesions. 3. Obesity. 4. Ischemic heart disease with history of coronary artery bypass grafting 1996. 5. Degenerative joint disease with history of back surgery x4. 6. Diabetes mellitus with associated neuropathy. 7. Hypokalemia. 8. Protein calorie malnutrition. RECOMMENDATIONS: The patient will be rested on the propofol drip as currently he is stable on minimal ventilator support at the present time. We will continue to give him inhaled beta agonist as well as he is getting IV nutrition, IV total parenteral nutrition and follow along with you closely. We will give him TEDs and pneumatics for deep venous thrombosis prophylaxis. HISTORY OF PRESENT ILLNESS: An 86-year-old, male, who presented to [facility] to 10/[facility]/2016 with abdominal distention and a small bowel obstruction which was noted on the CT of the abdomen. He was in acute kidney injury on chronic kidney disease apparently. He was apparently treated conservatively at and then underwent an exploratory lap by Dr. Toney on 11/04 with a small bowel obstruction adhesion in the right lower quadrant and nonpathologic Meckel's. He apparently was in CICU postoperatively, developed a dehiscence of the wound and emergently was taken back on 11/07/2016 for repair of this and now has been resting on the ventilator in the ICU postop where we are consulted to assist in his care. 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 SURGICAL HISTORY: 1. CABG as mentioned above in 1996. 2. Four back surgeries. 3. Fusions with herniated disk. 4. Tonsillectomy. 5. Hernia repair. 6. Cyst removal from the right shoulder. FAMILY HISTORY: Positive for a myocardial infarction in his father. Mother of natural causes at age 96. SOCIAL HISTORY: He is . He has a former smoking history of approximately 20 years, up to 3 packs a day. Having quit 45 years ago. Apparently daily alcohol use, up to 3 drinks daily for several years. ALLERGIES: Lyrica and Cardizem. MEDICATIONS: At the present time, his family states he is not on oxygen at home. He is currently on a propofol drip as well as IV total parenteral nutrition and sliding-scale insulin, Cardizem drip. Cefoxitin q.6 hours, subcutaneous heparin q.8 hours. REVIEW OF SYSTEMS: Difficult to obtain secondary to him being intubated and apparently he has had been having these abdominal issues. PHYSICAL EXAMINATION: General: He is sedated on the ventilator. Grimaces with touching his abdomen. Vital signs: He has a temperature of 98.1 degrees, pulse of 72, blood pressure is 118/51 with a respiratory rate of 14, O2 saturation is 98% on 40% on the ventilator. HEENT: He is atraumatic and normocephalic. PERRLA. Oral mucosa is without erythema. He has a #7 ET tube with a left naris nasogastric tube. Neck: Supple. No JVD. Chest: Bilateral equal breath sounds are clear. Diminished in the bases. Cardiac: S1, S2, without appreciable murmur, gallop, or rub. Abdomen: Postoperative, distended. There is a midline dressing. There are retention sutures present with some minimal serous blood-tinged drainage. NG tube to low intermittent suction with some cream bilious drainage. There are little to no bowel sounds. Extremities: Reveal no cyanosis, clubbing, or edema. There is a trace edema. Right upper extremity PICC line in position. Neurologically: He grimaces to pain. He is sedated on a positive gag reflex. PERTINENT DATA: His chest radiograph reviewed from preop shows a right PICC line in position. There is a median sternotomy present, modest cardiomegaly. No acute infiltrates. The ABG shows a 7.54 pH, CO2 of 32, O2 of 74. The sodium is 144, potassium 3.2, chloride 106, CO2 24, BUN 26, creatinine 1.1 and glucose 163, magnesium 2. Yesterday the CBC from the 3rd shows a white count of 13, hemoglobin 12, hematocrit 37.7, and platelets of 168,000. INR is 1. The EKG shows atrial fibrillation, controlled rate of 81, no acute ischemic changes. Dictated by SMITHA Cardoso for Paresh Michelle MD
[2016-11-08] MEDS: LOPRESSOR IV SCH ×2 (18:21→20:56)
[2016-11-09] MEDS: LOPRESSOR IV SCH ×6 (01:08→21:31)
[2016-11-09] MEDS: DIPRIVAN 1% 100 ML IV SCH ×2 (02:58→07:42)
[2016-11-09] MEDS: MEFOXIN 2 GM/NS 50 ML IV SCH ×4 (03:00→22:52)
[2016-11-09] MEDS: HUMULIN R SUBQ SCH ×5 (03:30→19:47)
[2016-11-09] MEDS: DUONEB (A & A) INH SCH ×4 (03:36→23:00)
[2016-11-09 04:31] LABS: ALLEN TEST YES; BE 1.1 mmoll (-3.0-3.0); BLOOD TYPE ARTERIAL; DRAW SITE R RADIAL; METHB 1.6 % (0.0-1.5); O2(CT) 21.6 mL/dL (15.0-23.0); PCO2(98.6) 32 mmHg (35-45); PO2(98.6) 83 mmHg (60-100); SAMPLE BLOOD; SAO2 97.8 % (95.0-100.0); SRATE 14 BPM; THB 16.2 g/dL (11.5-17.4); TVOL 700 mL; pH(98.6) 7.48 (7.35-7.45)
[2016-11-09 04:32] LABS: MODALITY VENTILATOR
[2016-11-09 05:07] LABS: MANUAL DIFF NEEDED? NO
[2016-11-09] MEDS: PROTONIX IV SCH (05:10)
[2016-11-09 05:15] LABS: BASO% 0.1 % (0.0-0.8); EOS# 0.16 X1000 (0.0-0.7); EOS% 1.3 % (0.0-10.0); HEMATOCRIT 32.4 % (42.0-52.0); HEMOGLOBIN 10.4 g/dL (14.0-18.0); IMM GRAN# 0.08 X1000 (0.0-0.04); IMM GRAN% 0.6 % (0.0-0.5); LYMPH# 0.95 X1000 (1.2-3.4); LYMPH% 7.5 % (20.5-51.1); MCHC 32.1 g/dL (33-37); MCV 96.7 FL (81-99); MONO# 0.82 X1000 (0.11-0.59); MONO% 6.5 % (1.7-9.3); MPV 10.7 FL (7.4-10.4); PLT 146 X1000 (130-400); RBC 3.35 XMIL (4.7-6.1)
[2016-11-09] MEDS: SODIUM CHLORIDE 0.9% INJ SCH (05:15)
--- NOTE | 2016-11-09 05:37 | EKG Report ---
Test Performed on : 11/08/2016 11:43:07 AM Test Reason : AFIB Blood Pressure : / mmHG Vent. Rate : 072 BPM Atrial Rate : 119 BPM P-R Int : 000 ms QRS Dur : 080 ms QT Int : 380 ms P-R-T Axes : 000 -04 138 degrees QTc Int : 416 ms Atrial fibrillation. Low voltage QRS Nonspecific T wave abnormality Abnormal ECG When compared with ECG of 03-NOV-2016 07:02, Nonspecific T wave abnormality now evident in Lateral leads Confirmed by Andra ROBLES, Gentry Esteban ([id number]) on 11/09/2016 4:26:14 PM
[2016-11-09 05:39] LABS: CALCIUM 7.1 mg/dL (8.8-10.2); POTASSIUM 3.8 mmol/L (3.5-5.1); TOTAL BILIRUBIN 0.34 mg/dL (0.20-1.00); TOTAL PROTEIN 4.6 g/dL (6.3-8.3)
--- NOTE | 2016-11-09 06:38 | PROGRESS NOTE ---
DATE: 11/09/2016 SUBJECTIVE: Reviewed notes from the weekend. Reviewed Dr. Rebolledo's operative notes from the weekend. The patient apparently had a dehiscence of the lower aspect of his wound while getting up on Wednesday morning. He was taken emergently to the operating room and found to have a fascial dehiscence in the lower aspect of his incision. He was wash out. There was no obvious contamination, perforation, or infection noted. His stitches had apparently come undone and pull- through given his abdominal pressure. He has been on the ventilator since then, but is hemodynamically doing well. No major issues reported by the nursing staff through the course of the night. The patient is still sedated. I did discuss over the phone his overall situation with his son. OBJECTIVE: Vital Signs: The patient is currently afebrile. His vital signs are stable. General: Sedated on the ventilator. Cardiovascular: Regular rate and rhythm. Lungs: Referred airway noises. Abdomen: Less distended than on Wednesday. Dressing on the incision is in place. Davis catheter in place. NG tube in place. ASSESSMENT AND PLAN: An 86-year-old male, status post exploratory laparotomy and small bowel resection for small bowel obstruction, now postoperative day number 2 from a fascial dehiscence. At this time, we will continue routine postoperative care. We will defer ventilator management to the pulmonary critical care team. At this time, we will monitor his abdominal distention and continue supportive care.
[2016-11-09] MEDS ORDERED: ALBUMIN 25% IV ONE (07:03)
[2016-11-09] MEDS ORDERED: POTASSIUM CHLORIDE 40 MEQ/SWI 100 ML IV ONE (07:04)
[2016-11-09] MEDS ORDERED: LASIX IV ONE (07:04)
--- NOTE | 2016-11-09 07:38 | Diag Imaging Result Document ---
PROCEDURE NAME: CHEST-1 VIEW - 11/09/2016 ERECT AP PORTABLE CHEST, 11/09/2016 AT 0515 HOURS: FINDINGS: There is an endotracheal tube with its tip at the thoracic inlet and a PICC line on the right with its tip in the superior vena cava. There is retained barium in the colon. There is interstitial pulmonary edema which appears slightly worse than on the previous study of 11/08/2016. In addition, there appears to be some subsegmental atelectasis in both bases. IMPRESSION: Worsening pulmonary edema.
[2016-11-09] MEDS: HEPARIN SUBQ SCH ×2 (07:47→15:21)
--- NOTE | 2016-11-09 08:05 | EKG Report ---
Test Performed on : 11/09/2016 06:31:16 AM Test Reason : atrial fibrillation/ASHD/s/p laparotomy Blood Pressure : / mmHG Vent. Rate : 061 BPM Atrial Rate : 079 BPM P-R Int : 000 ms QRS Dur : 086 ms QT Int : 386 ms P-R-T Axes : 000 -07 133 degrees QTc Int : 388 ms Atrial fibrillation. with a competing junctional pacemaker. Low voltage QRS Nonspecific T wave abnormality Abnormal ECG When compared with ECG of 08-NOV-2016 11:43, (Unconfirmed) No significant change was found Confirmed by Andra ROBLES, Gentry Esteban ([id number]) on 11/09/2016 4:26:28 PM
[2016-11-09] MEDS ORDERED: ATROPINE ONE (08:51)
[2016-11-09] MEDS ORDERED: ENLON ONE (08:51)
[2016-11-09] MEDS ORDERED: LR 1,000 ML ONE (08:52)
[2016-11-09] MEDS ORDERED: OFIRMEV 1000 MG/ISOTONIC SOLN 100 ML ONE (08:52)
[2016-11-09] MEDS ORDERED: QUELICIN (DOSE) ONE (08:52)
[2016-11-09] MEDS ORDERED: XYLOCAINE-MPF 2% ONE (08:52)
[2016-11-09] MEDS ORDERED: NORCURON ONE (08:52)
[2016-11-09] MEDS: MORPHINE IV PRN ×3 (09:54→15:22)
--- NOTE | 2016-11-09 10:18 | PROGRESS NOTE ---
DATE: 11/09/2016 CHIEF COMPLAINT: Abdominal distention and irregular heartbeat. SUBJECTIVE: The patient remains intubated and sedated. He is nonverbal at this time. OBJECTIVE: Vital signs: Blood pressure is 130/56, pulse 75, respirations 14, and temperature 98.8. General: The patient is sedated. HEENT: Other than the orotracheal tube no significant abnormality. Respiratory: Chest shows symmetrical breath sounds. I do not hear any rales. Cardiovascular: Heart sounds are irregularly irregular. There are distant. Gastrointestinal: The abdomen is distended. The abdominal wound is covered by a dressing. Bowel sounds are markedly diminished. I really do not hear much activity. Extremities: The extremities are warm. He has good distal perfusion to the feet. Neurological: He is basically sedated. Blood work today reveals a white count of 12,690. His hemoglobin is 10.4. Hematocrit is 32.4. Platelet count is 146,000. He is on 35% FiO2 and pO2 is 83, pCO2 32, and pH 7.48. His electrolytes reveal a sodium of 142, potassium 3.8, BUN 29, and creatinine 1.1. His albumin is down to 2. His chest x-ray, which I have reviewed, shows some infiltrates bilaterally with decreased lung volumes. EKG from yesterday showed atrial fibrillation with no significant ischemic changes. Telemetry overnight has shown one bout of nonsustained ventricular tachycardia of up to 26 beats. Whether that is truly nonsustained ventricular tachycardia or rapid atrial fibrillation remains to be elucidated. IMPRESSION AND PLAN: 1. Patient who suffered a bowel obstruction. He had to go back to the operating room for repair of dehiscence of the abdominal wall incision. 2. Atrial fibrillation, paroxysmal. Rate controlled. 3. Coronary artery disease status-post coronary artery bypass surgery. 4. Pulmonary infiltrates, probably pulmonary edema from a combination of hypoalbuminemia and his suspected diastolic heart failure from being in atrial fibrillation. 5. Significant malnutrition. His total cholesterol is 76. His prealbumin was 4.2. RECOMMENDATION: 1. Continue with support measures. 2. Nutrition should be top priority on him. 3. We will give him today some albumin with Lasix and potassium to try to stabilize his pulmonary edema. 4. Further intervention will depend on his clinical course. We will discuss with pulmonary and with the primary service. [facility]
--- NOTE | 2016-11-09 10:43 | PROGRESS NOTE ---
DATE: 11/09/2016 SUBJECTIVE: Was resting comfortably. Still intubated. Plan is to try and extubate today. PHYSICAL EXAMINATION: Vital Signs: Temperature 99.3 degrees, pulse 72, respirations 16, blood pressure 133/67. HEENT: Pupils are equal, round, and reactive. Respiratory: Lungs are clear in all lung moore. Cardiovascular Examination: Regular rhythm and rate without murmur or S3. Abdomen: Soft. Skin: Warm and dry. Is and Os: Urine output 2100 mL. LAB: White count 17,690, hematocrit 32, platelet count 146,000. Chemistry: Sodium 142, potassium 3.8, chloride 107, bicarb 22, BUN 29, creatinine 1.2. Blood sugars 221, 199, and 228. Chest x-ray from this morning, worsening pulmonary edema, PICC line in the right and its tip is in the superior vena cava. ASSESSMENT: Small-bowel obstruction, status post terminal ileal resection, end-to-end anastomosis. Doing well. Had a little dehiscence of the wound, had to repair, and on the ventilator postoperatively. PLAN: I suspect we will be able to extubate today. Can hear some bowel sounds. Once we extubate, see about some liquids and work on his strength and getting him up. Review of his orders, I do not see any change. He is on TPN. Urine output was going down a little bit. Adjusted his fluids. At present time, I think she has adjusted the TPN. We have held the fat emulsions. I believe the TPN is going at 63 an hour. Protonix 40 mg IV daily, cefoxitin still 2 g q.6 hours. Hopefully, we can stop that soon.
[2016-11-09 11:03] LABS: BLOOD TYPE ARTERIAL; SAMPLE BLOOD
[2016-11-09 11:04] LABS: ALLEN TEST YES; DRAW SITE R RADIAL; METHB 1.5 % (0.0-1.5); O2(CT) 14.6 mL/dL (15.0-23.0); PCO2(98.6) 34 mmHg (35-45); PO2(98.6) 79 mmHg (60-100); SAO2 97.4 % (95.0-100.0); THB 10.9 g/dL (11.5-17.4); pH(98.6) 7.48 (7.35-7.45)
[2016-11-09 11:05] LABS: MODALITY VENTILATOR
[2016-11-09] MEDS: CARDIZEM 100 MG/NS 100 ML IV SCH (16:05)
[2016-11-09] MEDS: TPN ELECTROLYTES 20 ML, MAGNESIUM SULFATE 5 MEQ, POTASSIUM CHLORIDE 30 MEQ, M.V.I.-12 1... IV SCH ×8 (16:06)
[2016-11-09] MEDS: BLISTEX MEDICATED BERRY LIP BALM TOP PRN (16:08)
[2016-11-10] MEDS: HEPARIN SUBQ SCH ×3 (00:07→15:01)
[2016-11-10] MEDS: HUMULIN R SUBQ SCH ×7 (00:15→23:59)
[2016-11-10] MEDS: LOPRESSOR IV SCH ×6 (01:39→22:11)
[2016-11-10] MEDS: MORPHINE IV PRN ×4 (03:18→14:55)
[2016-11-10] MEDS: DUONEB (A & A) INH SCH ×4 (03:25→19:34)
[2016-11-10] MEDS: MEFOXIN 2 GM/NS 50 ML IV SCH ×4 (03:59→22:24)
[2016-11-10 04:14] LABS: ALLEN TEST YES; BE 3.3 mmoll (-3.0-3.0); BLOOD TYPE ARTERIAL; DRAW SITE R RADIAL; METHB 1.8 % (0.0-1.5); O2(CT) 18.3 mL/dL (15.0-23.0); PCO2(98.6) 41 mmHg (35-45); PO2(98.6) 88 mmHg (60-100); SAMPLE BLOOD; SAO2 98.6 % (95.0-100.0); THB 13.7 g/dL (11.5-17.4); pH(98.6) 7.44 (7.35-7.45)
[2016-11-10 04:15] LABS: MODALITY COOL AEROSOL
[2016-11-10] MEDS: SODIUM CHLORIDE 0.9% INJ SCH (05:41)
[2016-11-10] MEDS: PROTONIX IV SCH (05:41)
[2016-11-10 06:14] LABS: AGAP 12; BUN 29 mg/dL (8-22); CALCIUM 7.8 mg/dL (8.8-10.2); CHLORIDE 106 mmol/L (98-107); COSMO 296; POTASSIUM 4.4 mmol/L (3.5-5.1); SODIUM 143 mmol/L (136-145); TCO2 25 mmol/L (25-35)
--- NOTE | 2016-11-10 07:40 | EKG Report ---
Test Performed on : 11/10/2016 05:51:08 AM Test Reason : atrial fibrillation/ASHD/s/p laparotomy Blood Pressure : / mmHG Vent. Rate : 065 BPM Atrial Rate : 057 BPM P-R Int : 000 ms QRS Dur : 088 ms QT Int : 390 ms P-R-T Axes : 000 -11 085 degrees QTc Int : 405 ms Atrial fibrillation. Nonspecific T wave abnormality Abnormal ECG When compared with ECG of 10-NOV-2016 05:50, (Unconfirmed) No significant change was found Confirmed by Andra ROBLES, Gentry Esteban ([id number]) on 11/10/2016 5:23:25 PM
--- NOTE | 2016-11-10 07:59 | PROGRESS NOTE ---
DATE: 11/10/2016 SUBJECTIVE: Patient doing well. Reported having a bowel movement this morning. Feels less distended. He is not nauseated at this point. NG tube had minimal output. OBJECTIVE: Vital Signs: Patient is currently afebrile. His vital signs have been stable. General Examination: No acute distress. Alert, interactive, male. Looks stated age. HEENT: Normocephalic, atraumatic. Pupils equal, round, react to light. Mucous membranes moist. Oropharynx benign. Neck: Supple. Trachea midline. Cardiovascular: Atrial fibrillation. Lungs: Grossly clear. Abdomen: Soft, less distended. Incision healing well. Extremities: Moves all extremities. Neurologic: Grossly intact. Laboratory: ABG reviewed. ASSESSMENT/PLAN: An 86-year-old, male status post exploratory laparotomy with small- bowel resection for a bowel obstruction and status post exploratory laparotomy for fascial dehiscence. Postoperative state. His respiratory status has improved. He has been extubated. He seems to be tolerating nasal cannula and face mask at this point. He is also having bowel movements. At this time, we will start him on a clear liquid diet and clamp his nasogastric tube as he does not seem to show nausea. We will potentially remove his nasogastric tube tomorrow. We will continue to follow the patient. Patient may likely be able to be transferred to the CICU later today if okay with other teams.
--- NOTE | 2016-11-10 11:11 | PROGRESS NOTE ---
DATE: 11/10/2016 SUBJECTIVE: Today, Mr. Tucker referred to be doing okay. Denies any major complaint except for abdominal discomfort at the area of the surgery. The patient has not had any bowel movement today. OBJECTIVE: Vital signs: Blood pressure is 153/58, pulse of 83, respirations 27, temperature is 98.9 degrees. General: Mr. Tucker is an 87-year-old male who is in bed. Not seemingly distress. HEENT: Mucosa is pink and moist. Anicteric. Acyanotic. Neck: Supple. Chest: Good air entry bilaterally. A few bibasilar crepitations. Cardiovascular: Irregularly irregular heart rate but rate controlled. No murmurs. No rubs. No gallops. There is an old sternotomy scar on the anterior chest wall. Abdomen: Abdomen is distended. Tympanitic bowel sounds are hypoactive and there is a fresh surgical wound which is affronted with clips in the anterior abdominal midline. Central Nervous System: Patient is alert and oriented. There is no focal neurological deficit. Genitourinary: There is a Davis catheter in place. LABORATORY DATA: No CBC today. Chemistry reviewed and completely unremarkable. Glucose is 219. MEDICATIONS: Reviewed. ASSESSMENT: 1. Small-bowel obstruction status post terminal ileal resection with end-to-end anastomosis. 2. Surgical wound dehiscence status post repair. 3. Respiratory failure after surgical procedure. Patient got extubated and today seems to be doing a whole lot better. 4. Atrial fibrillation, currently rate controlled. Patient continues to be on diltiazem drip. 5. History of coronary artery disease status post coronary artery bypass graft. 6. Protein calorie malnutrition. Patient is currently on TPN. 7. Abdominal distention, likely secondary to postoperative ileus. At this point, the patient has been started on clear liquids by the surgeon. We will encourage that he gets up in chair at least twice to help with gut mobilization.
[2016-11-10] MEDS: CARDIZEM 100 MG/NS 100 ML IV SCH (16:12)
[2016-11-10] MEDS: TPN ELECTROLYTES 20 ML, MAGNESIUM SULFATE 5 MEQ, POTASSIUM CHLORIDE 30 MEQ, M.V.I.-12 1... IV SCH ×8 (16:18)
--- NOTE | 2016-11-10 17:54 | PROGRESS NOTE ---
DATE: 11/10/2016 The patient was experiencing nausea this afternoon and in the process of getting him up or moving him around he had a significant gush of fluid from his lower midline incision. I was called to evaluate the patient. On evaluation I could not determine if his fascia was still intact at this point. There was some fluid noted and on probing there appeared to be some fat protruding through the middle of the lower aspect of the incision where he previously dehisced. Given this, I discussed with the patient and his son about the need to take him to the operating room. All questions were answered. We will get consent obtained.
[2016-11-10] MEDS ORDERED: NORCURON ONE (18:22)
[2016-11-10] MEDS ORDERED: STERILE WATER INJ. ONE (18:23)
[2016-11-10] MEDS: NORCURON IV ONE (18:30)
[2016-11-10] MEDS: DIPRIVAN 1% 100 ML IV SCH ×2 (18:33→21:47)
[2016-11-10] MEDS ORDERED: DIPRIVAN 1% ONE (18:59)
[2016-11-10] MEDS: NIMBEX 80 MG in NS 160 ML IV SCH (19:05)
--- NOTE | 2016-11-10 19:48 | OPERATIVE NOTE ---
PROCEDURE DATE: 11/10/2016 PREOPERATIVE DIAGNOSIS: Recurrent fascial dehiscence. POSTOPERATIVE DIAGNOSIS: Recurrent fascial dehiscence. PROCEDURE: 1. Wound exploration. 2. Closure en cherry of fascia with 0 sutures and retention sutures. SURGEON: Omar Toney MD SWEEPER OPERATOR HIGHWAYS: None. ANESTHESIA: General endotracheal. FINDINGS: The fascia inferior to the umbilicus that had previously dehisced had redehisced with the sutures being pulled through in the fascia. The fascia itself was very attenuated and could not hold a stitch. There was no obvious abscess noted. He still had significant abdominal distention. BRIEF HISTORY: The patient is an 86-year-old male who underwent an exploratory laparotomy for a bowel obstruction. His postoperative course initially was complicated by fascial dehiscence approximately 4 days ago for which he was taken to the operating room. It was noted that the inferior aspect of his incision had dehisced at the fascia. His initial closure there with 0 Vicryl. His 2nd closure after the 1st dehiscence was running suture. He was noted to have a gush of salmon-colored fluid coming from his wound. It was a limited exam done in the ICU which there was concern that he might have dehisced again. Given this, we elected to take the patient back semi-urgently to the operating room. The risks, benefits, and alternatives were discussed. All questions were answered with the patient and the family. DESCRIPTION OF PROCEDURE: After informed consent was obtained, patient brought to the operative theater, transferred to the operating table and placed in supine position. General endotracheal anesthesia was then performed without complication. A formal time-out was then performed confirming patient, date, procedure. At that time, the abdomen was prepped and draped in sterile fashion. After the time-out, I removed multiple anita noted to the inferior aspect of the incision and upon doing this, we were able to separate the skin. We then noted that the fascia had dehisced and . The sutures previously placed had both the previous interrupted stitches and the running suture had pulled through. This measured approximately 8 cm of dehiscence which was consistent with what had previously dehisced. The fascia itself appeared to be very attenuated and not able to hold stitches. There was no obvious abscess encountered in the area. No succus or stool was noted in the wound. We irrigated the area copiously. Given the fact this was a 2nd dehiscence and this fascia was very attenuated, we elected to place en cherry closure containing both skin, subcutaneous tissue, fascia and muscle, this was done with 0 sutures, spaced approximately 1 cm apart. We also placed 2 more additional retention sutures through the wound. We were able to close the wound, we then irrigated out the wound and placed a sterile dressing. The patient tolerated procedure well, but will remain on the ventilator through the course of the night with reassessment by Pulmonology in the morning.
[2016-11-11] MEDS: HEPARIN SUBQ SCH ×4 (00:04→23:13)
[2016-11-11] MEDS: MORPHINE IV PRN ×4 (00:11→15:23)
[2016-11-11] MEDS: DIPRIVAN 1% 100 ML IV SCH ×6 (01:38→21:16)
[2016-11-11] MEDS: DUONEB (A & A) INH SCH ×4 (02:56→19:28)
[2016-11-11] MEDS: LOPRESSOR IV SCH ×7 (03:58→23:15)
[2016-11-11] MEDS: MEFOXIN 2 GM/NS 50 ML IV SCH ×4 (03:59→21:17)
[2016-11-11] MEDS: HUMULIN R SUBQ SCH ×6 (04:12→23:13)
[2016-11-11 04:40] LABS: ALLEN TEST YES; BE 3.2 mmoll (-3.0-3.0); BLOOD TYPE ARTERIAL; DRAW SITE R RADIAL; PCO2(98.6) 37 mmHg (35-45); PO2(98.6) 73 mmHg (60-100); SAMPLE BLOOD; SRATE 14 BPM; TVOL 700 mL; pH(98.6) 7.47 (7.35-7.45)
[2016-11-11 04:41] LABS: MODALITY VENTILATOR
[2016-11-11] MEDS: NIMBEX 80 MG in NS 160 ML IV SCH ×4 (05:02→23:58)
[2016-11-11] MEDS: PROTONIX IV SCH (05:55)
[2016-11-11] MEDS: SODIUM CHLORIDE 0.9% INJ SCH (05:55)
[2016-11-11 06:00] LABS: AGAP 13; BUN 29 mg/dL (8-22); CALCIUM 7.2 mg/dL (8.8-10.2); CHLORIDE 104 mmol/L (98-107); COSMO 295; POTASSIUM 4.3 mmol/L (3.5-5.1); SODIUM 141 mmol/L (136-145); TCO2 24 mmol/L (25-35)
--- NOTE | 2016-11-11 06:40 | PROGRESS NOTE ---
DATE: 11/11/2016 SUBJECTIVE: No major issues reported overnight. He still remains on the ventilator and paralyzed since his operation emergently yesterday afternoon. No other major issues reported by the nursing staff. OBJECTIVE: Vital Signs: Patient is currently afebrile. His vital signs have been stable. General Examination: Sedated on the ventilator and paralyzed. Cardiovascular: Regular rate and rhythm. Lungs: Referred airway noises. Abdomen: Still somewhat distended. Dressing in place. No drainage at this time. ASSESSMENT AND PLAN: This is an 86-year-old, male status post return visit to the operating room for a 2nd fascial dehiscence after a small-bowel resection. Postoperative state. At this time, the patient remains on the ventilator. His overall clinical status is stable. We will defer ventilator management to pulmonary. At this time, we did close his abdomen en mass. We will monitor closely. We will have to keep his nasogastric tube in his stomach to keep this area and his abdomen decompressed as much as possible. We will continue supportive care.
--- NOTE | 2016-11-11 06:58 | EKG Report ---
Test Performed on : 11/11/2016 06:00:21 AM Test Reason : atrial fibrillation/ASHD/s/p laparotomy Blood Pressure : / mmHG Vent. Rate : 067 BPM Atrial Rate : 267 BPM P-R Int : 000 ms QRS Dur : 080 ms QT Int : 372 ms P-R-T Axes : 000 -14 105 degrees QTc Int : 393 ms Atrial fibrillation. Low voltage QRS Abnormal QRS-T angle, consider primary T wave abnormality Abnormal ECG When compared with ECG of 10-NOV-2016 05:51, No significant change was found Confirmed by Andra ROBLES, Gentry Esteban ([id number]) on 11/12/2016 9:28:01 AM
--- NOTE | 2016-11-11 08:46 | Diag Imaging Result Document ---
PROCEDURE NAME: CHEST-PORTABLE - 11/10/2016 SINGLE FRONTAL RADIOGRAPH OF THE CHEST: COMPARISON: 11/09/2016. FINDINGS: Right PICC line and ET tube are stable. Inspiration is suboptimal similar to the previous study. Interstitial edema and pulmonary venous congestion appears to be marginally improved. No new consolidations identified. Cardiac silhouette is stable. IMPRESSION: Suggestion of marginal improvement of interstitial edema and pulmonary venous congestion.
[2016-11-11] MEDS ORDERED: NEO-SYNEPHRINE ONE (09:15)
[2016-11-11] MEDS ORDERED: XYLOCAINE-MPF 2% ONE (09:16)
[2016-11-11] MEDS ORDERED: EPHEDRINE ONE (09:16)
[2016-11-11] MEDS ORDERED: NORCURON ONE (09:16)
[2016-11-11] MEDS ORDERED: LR 1,000 ML ONE (09:17)
[2016-11-11] MEDS ORDERED: QUELICIN (DOSE) ONE (09:17)
[2016-11-11] MEDS ORDERED: ANESTHESIA PB SET 88 IN 5742 ONE (09:17)
[2016-11-11] MEDS ORDERED: EXTENSION SET 32 IN 4522 ONE (09:17)
[2016-11-11] MEDS: TEARISOL OPH SOLUTION BOTH EYES PRN (09:24)
[2016-11-11] MEDS: CARDIZEM 100 MG/NS 100 ML IV SCH (10:04)
--- NOTE | 2016-11-11 10:52 | PROGRESS NOTE ---
DATE: 11/11/2016 SUBJECTIVE: This morning, Mr. Tucker is intubated, paralyzed and sedated. From my discussion with the joint surgeon, Dr. Toney, he had to take the patient in yesterday because of dehiscence of the wound and he wants the patient very calm and paralyzed at least for 24-48 hours to relax the muscle of the abdominal wall to prevent further dehiscence. OBJECTIVE: Vital signs: This morning blood pressure is 120/59, pulse of 80, respirations 14, temperature 98.5. General: Mr. Tucker is an 86-year-old male. He is in bed. He is paralyzed and sedated. HEENT: Mucosa is pink and moist. Anicteric. Acyanotic. Neck: Supple. Chest: Air entry is bilaterally reduced. There are some transmitted sounds from the ventilator. Cardiovascular: Irregularly irregular heart rate, but is rate controlled. There is an old stenosed scar on the anterior chest wall. Abdomen: Distended. There is an abdominal vest (support around the whole anterior abdominal wall). Bowel sounds are hypoactive. DATA REVIEW SPECIALIST: Patient is paralyzed, intubated and sedated. : There is a Davis catheter in place. LABORATORY DATA: There is no CBC. The chemistries reviewed and unremarkable. CURRENT MEDICATIONS: Tylenol p.r.n., cefoxitin, TPN. Diltiazem drip. Heparin 5000 q.8. Insulin. Metoprolol 5 mg IV q.4. Morphine. ASSESSMENT: 1. Small bowel obstruction status post terminal ileal resection with end-to-end anastomosis. 2. Surgical wound dehiscence. This is the 2nd repair on that. 3. Respiratory failure after surgical procedure. Patient is currently intubated and paralyzed. 4. Atrial fibrillation. The patient is on diltiazem drip. Is currently rate controlled. 5. History of coronary artery disease status post coronary artery bypass graft. 6. Protein calorie malnutrition, patient is on total parenteral nutrition. 7. Abdominal distention likely due to postoperative ileus. GENERAL PLAN: We are going to continue with the TPN, the current antibiotics and vent support. Patient will continue to be paralyzed and will follow up with further recommendations from pulmonary medicine and the general surgery team. [facility]
[2016-11-11] MEDS ORDERED: NS 500 ML IV ONE (13:56)
[2016-11-11] MEDS: TPN ELECTROLYTES 20 ML, MAGNESIUM SULFATE 5 MEQ, POTASSIUM CHLORIDE 30 MEQ, M.V.I.-12 1... IV SCH ×8 (16:21)
[2016-11-12] MEDS: DIPRIVAN 1% 100 ML IV SCH ×3 (00:37→09:15)
[2016-11-12] MEDS: TPN ELECTROLYTES 20 ML, MAGNESIUM SULFATE 5 MEQ, POTASSIUM CHLORIDE 30 MEQ, M.V.I.-12 1... IV SCH ×8 (01:05)
[2016-11-12] MEDS: DUONEB (A & A) INH SCH ×4 (02:54→23:00)
[2016-11-12] MEDS: MEFOXIN 2 GM/NS 50 ML IV SCH ×4 (03:13→21:01)
[2016-11-12] MEDS: HUMULIN R SUBQ SCH ×5 (03:13→20:11)
[2016-11-12] MEDS: LOPRESSOR IV SCH ×6 (03:13→23:45)
[2016-11-12 04:41] LABS: ALLEN TEST YES; BE 0.5 mmoll (-3.0-3.0); BLOOD TYPE ARTERIAL; DRAW SITE R RADIAL; PCO2(98.6) 37 mmHg (35-45); PO2(98.6) 82 mmHg (60-100); SAMPLE BLOOD; SRATE 14 BPM; TVOL 700 mL; pH(98.6) 7.43 (7.35-7.45)
[2016-11-12 04:42] LABS: MODALITY VENTILATOR
[2016-11-12] MEDS: NIMBEX 80 MG in NS 160 ML IV SCH (04:43)
[2016-11-12] MEDS: PROTONIX IV SCH (05:12)
[2016-11-12] MEDS: SODIUM CHLORIDE 0.9% INJ SCH (05:12)
[2016-11-12 05:28] LABS: CALCIUM 7.3 mg/dL (8.8-10.2); MAGNESIUM 2.1 mg/dL (1.5-2.7); POTASSIUM 4.3 mmol/L (3.5-5.1); PREALBUMIN 7.3 mg/dL (20-40)
[2016-11-12] MEDS: CARDIZEM 100 MG/NS 100 ML IV SCH (06:16)
--- NOTE | 2016-11-12 06:36 | PROGRESS NOTE ---
DATE: 11/12/2016 SUBJECTIVE: The patient is doing okay. No major issues reported by the nursing staff. His urine output was low but low during the mid part of the night but has picked up. Otherwise, no major issues. OBJECTIVE: Vital Signs: Patient is currently afebrile. His vital signs are stable. General: Sedated and paralyzed on the ventilator. Cardiovascular: Regular rate and rhythm. Lungs: Grossly clear. Abdomen: Overall appears less distended. His incision is healing well. There is no signs of ischemia at the skin. I did auscultate some bowel sounds in his abdomen. LABORATORY: ABG reviewed. X-rays pending. ASSESSMENT AND PLAN: This is an 86-year-old, male status post exploratory laparotomy with small-bowel resection and status post exploratory laparotomy for fascial dehiscence x2. Postoperative state: At this time, his respiratory status appears to be pretty good. He has been on the ventilator and paralyzed coming on 48 hours. At this time, I would recommend trying to wean off his paralytics and his sedation to see if we can extubate him. I would like to keep his abdominal binder in place. Overall, his wound appears to be holding as is. He does have some faint bowel sounds but would like to keep his NG tube until his abdomen becomes significantly less distended. We may even try small bowel follow-through before removing the NG tube at a later date. We need to keep the him in the ICU for now and hopefully be able to extubate him and wean him here soon.
[2016-11-12] MEDS: HEPARIN SUBQ SCH ×3 (07:59→23:45)
--- NOTE | 2016-11-12 08:55 | PROGRESS NOTE ---
DATE: 11/12/2016 CHIEF COMPLAINT: Irregular heartbeat and abdominal distention. SUBJECTIVE: Mr. Tucker remains intubated. He had to go back to the operating room on 11/10/2016 because of recurrent fascial dehiscence. He underwent a wound exploration and closure en cherry of fascia with 0 sutures and retention sutures. The patient has remained in atrial fibrillation with a controlled rate. OBJECTIVE: Vital signs: Blood pressure right now is 128/60, pulse 65, respirations 14, and temperature 98.5. General: He is sedated. HEENT: Unremarkable. Respiratory : Chest is clear to auscultation and percussion. Cardiovascular: Heart sounds are irregularly irregular with controlled rate. Gastrointestinal: The abdomen is distended. Bowel sounds are diminished. He is wrapped in an abdominal corset. Extremities: The extremities show no edema. Pulses are decreased. The last chest x-ray that we have on record was from 11/10/2016 and that showed the suggestion of marginal improvement of interstitial edema and pulmonary venous congestion. His laboratory today shows a pO2 of 82, pCO2 of 37, and pH of 7.43. He is on 30 % FiO2. Sodium is 138, potassium 4.3, BUN 35, and creatinine 1.3. IMPRESSION: 1. Patient with significant abdominal problems and postoperative dehiscence who had to go back to the operating room. He is still intubated on the second postoperative day of this additional surgical procedure. 2. Atrial fibrillation with controlled rate. 3. History of coronary artery disease with previous bypass. 4. Compromised nutritional state. His prealbumin level is 7.4. That puts him in the moderate protein depletion. RECOMMENDATION: Continue aggressive nutritional support and respiratory support. Cardiac-lynch he seems to be stable. I do not see that any significant change has taken place. We will follow him along. [facility]
[2016-11-12] MEDS: NS 1,000 ML IV SCH ×2 (09:29→23:02)
--- NOTE | 2016-11-12 09:52 | Diag Imaging Result Document ---
PROCEDURE NAME: CHEST-PORTABLE - 11/12/2016 PORTABLE AP CHEST AT 0610 HOURS: FINDINGS: There is hazy pulmonary edema and bilateral pleural effusions. This appears slightly worse than on 11/10/2016. IMPRESSION: Worsened pulmonary edema and pleural effusions.
[2016-11-12] MEDS: MORPHINE IV PRN ×3 (11:20→23:45)
[2016-11-12 11:58] LABS: ALLEN TEST YES; BE 1.2 mmoll (-3.0-3.0); BLOOD TYPE ARTERIAL; DRAW SITE L RADIAL; METHB 1.7 % (0.0-1.5); O2(CT) 13.9 mL/dL (15.0-23.0); PCO2(98.6) 35 mmHg (35-45); PO2(98.6) 72 mmHg (60-100); SAMPLE BLOOD; SAO2 97.1 % (95.0-100.0); THB 10.5 g/dL (11.5-17.4); pH(98.6) 7.46 (7.35-7.45)
[2016-11-12 11:59] LABS: MODALITY VENTILATOR
[2016-11-12] MEDS ORDERED: NARCAN IV PRN (14:13)
[2016-11-12] MEDS: DILAUDID IV PRN ×4 (14:26→21:51)
[2016-11-12] MEDS: LIPOSYN 20% 500 ML IV SCH (15:35)
--- NOTE | 2016-11-12 16:18 | PROGRESS NOTE ---
DATE: 11/12/2016 SUBJECTIVE: Today Mr. Tucker referred to be doing much better. He just got extubated. OBJECTIVELY: Vital: Blood pressure is 158/72, pulse of 73, respirations 20, temperature is 98.2 degrees. General Examination: Mr. Tucker is an 86-year-old male. He was in bed. He did not seems to be in any distress. HEENT: Mucosa is pink and moist. Anicteric. Acyanotic. Chest: Good air entry bilateral. Cardiovascular: Regular rate and rhythm. Abdomen: Soft, distended. Still has the vest around the abdominal wall. ROLLER: Patient is alert and oriented. There is a Davis catheter in place. LABORATORY DATA: WBC is 12.69, hemoglobin is 10.4, platelet count of 146,000. Chemistry is reviewed. Creatinine is 1.3. ASSESSMENT: 1. Small bowel obstruction, status post terminal ileum resection and end-to-end anastomosis. 2. Surgical wound dehiscence, status post second repair. 3. Respiratory failure after surgical procedure. The patient is extubated and seems to be doing fine. 4. History of coronary artery disease, status post coronary artery bypass graft. 5. Atrial fibrillation, currently rate controlled. 6. Abdominal distention, likely due to postop postoperatively ileus. 7. Acute kidney injury. Creatinine went up to about 1.3 and BUN also went up to 35. I think this is probably from dehydration. Will start the patient on normal saline at 75 mL/h and continue observing. We will pay very critical at tension to the abdominal exams, since abdominal distention and some tension could be an indication of abdominal compartment syndrome causing the creatinine to be going up. We will keep a very close eye on that. Sputum positive with gram-negative rods. Patient is on cefoxitin, which was actually for after the surgery. Because we have this sputum positive gram negative and there is some infiltrates in the chest x-ray, we would continue at the current antibiotics and treat the patient as though he has lung infection as well.
[2016-11-13] MEDS: HUMULIN R SUBQ SCH ×6 (00:03→20:09)
[2016-11-13] MEDS: DILAUDID IV PRN ×4 (00:49→17:46)
[2016-11-13] MEDS: CARDIZEM 100 MG/NS 100 ML IV SCH ×2 (01:25→20:35)
[2016-11-13] MEDS: TPN ELECTROLYTES 20 ML, MAGNESIUM SULFATE 5 MEQ, POTASSIUM CHLORIDE 30 MEQ, M.V.I.-12 1... IV SCH ×8 (01:25)
[2016-11-13] MEDS: DUONEB (A & A) INH SCH ×4 (03:34→22:50)
[2016-11-13] MEDS: MEFOXIN 2 GM/NS 50 ML IV SCH ×4 (04:27→21:49)
[2016-11-13] MEDS: LOPRESSOR IV SCH ×5 (04:27→20:13)
[2016-11-13 04:35] LABS: ALLEN TEST YES; BE 2.2 mmoll (-3.0-3.0); BLOOD TYPE ARTERIAL; DRAW SITE R RADIAL; METHB 0.2 % (0.0-1.5); O2(CT) 11.6 mL/dL (15.0-23.0); PCO2(98.6) 44 mmHg (35-45); PO2(98.6) 65 mmHg (60-100); SAMPLE BLOOD; SAO2 93.5 % (95.0-100.0); THB 8.8 g/dL (11.5-17.4)
[2016-11-13 04:36] LABS: MODALITY COOL AEROSOL
[2016-11-13 05:01] LABS: MANUAL DIFF NEEDED? NO
[2016-11-13] MEDS: PROTONIX IV SCH (05:03)
[2016-11-13] MEDS: SODIUM CHLORIDE 0.9% INJ SCH (05:03)
[2016-11-13 05:04] LABS: BASO% 0.4 % (0.0-0.8); EOS# 0.16 X1000 (0.0-0.7); EOS% 1.2 % (0.0-10.0); HEMATOCRIT 33.2 % (42.0-52.0); HEMOGLOBIN 10.3 g/dL (14.0-18.0); IMM GRAN# 0.09 X1000 (0.0-0.04); IMM GRAN% 0.7 % (0.0-0.5); LYMPH# 1.16 X1000 (1.2-3.4); LYMPH% 8.8 % (20.5-51.1); MCH 31.2 PG (27-31); MCV 100.6 FL (81-99); MONO% 9.1 % (1.7-9.3); MPV 11.5 FL (7.4-10.4); NEUT% 79.8 % (42.2-75.2); PLT 221 X1000 (130-400)
[2016-11-13 05:24] LABS: AGAP 11; BUN 30 mg/dL (8-22); CALCIUM 7.4 mg/dL (8.8-10.2); CHLORIDE 104 mmol/L (98-107); COSMO 292; POTASSIUM 4.6 mmol/L (3.5-5.1); SODIUM 139 mmol/L (136-145); TCO2 24 mmol/L (25-35)
[2016-11-13] MEDS ORDERED: ATIVAN IV ONE (07:30)
[2016-11-13] MEDS: HEPARIN SUBQ SCH ×2 (07:48→15:08)
--- NOTE | 2016-11-13 08:17 | PROGRESS NOTE ---
DATE: 11/13/2016 SUBJECTIVE: Some confusion overnight reported by the nursing staff, but otherwise, no major issues. He is having some abdominal pain. His urine output has been adequate. OBJECTIVE: Vital Signs: Patient is currently afebrile. His vital signs have been stable. General: No acute distress. Lungs: Some coarse sounds noted. Cardiovascular: Regular rate and rhythm. Abdomen: Still distended. Dressing in place. He does have some faint bowel sounds auscultated. His physical exam is not consistent with abdominal compartment syndrome. : His urine output does have good colored urine in the Davis catheter. LABORATORY: Reviewed is white blood cell count is 13, hematocrit 33, platelet count 221,000. ABG reviewed and remainder of labs reviewed. ASSESSMENT/PLAN: An 82-year-old, male status post exploratory laparotomy with small- bowel resection and status post exploratory laparotomy for fascial dehiscence x2. Postoperative state: At this time, his respiratory status appears to be pretty good. He may be developing pneumonia by the consolidations on chest x-ray. At this time, he is on antibiotics. We will defer further antibiotics to the hospitalist service. Given his abdominal distention, we will keep his NG tube until he is more definitively having return of bowel function. We will keep the abdominal binder in place. I do not clinically suspect that he has abdominal compartment syndrome given the fact that his urine output has been very good, but we will continue to monitor closely. I suspect the patient can be transferred up to the CICU maybe later today. This may help his confusion to be out of the ICU. Over the weekend, my partner, Dr. Miranda, will be evaluating the patient.
[2016-11-13] MEDS ORDERED: ALBUMIN 25% IV ONE (10:49)
[2016-11-13] MEDS ORDERED: LASIX IV ONE (10:50)
--- NOTE | 2016-11-13 11:31 | PROGRESS NOTE ---
DATE: 11/13/2016 SUBJECTIVE: Today Mr. Tucker referred to be doing okay. He is in bed. He does not seem to be in any distress. OBJECTIVE: HEENT: Mucosa is pink and moist. Anicteric. Acyanotic. Neck: Supple. Chest: Good air entry bilateral. There is a few bibasilar crepitations and end- expiratory rhonchi. Cardiovascular: Regular rate and rhythm. Abdomen: Distended. It is very tympanic. Bowel sounds are hypoactive and he has an abdominal vest around the abdominal wall. Extremities: With 2+ pedal edema in both lower and upper extremities. CAB STATION ATTENDANT: Patient is alert. IMAGING STUDIES: Chest x-ray yesterday showed some worsening of pulmonary edema. INTAKE AND OUTPUT: Urine output was 1475. He has a positive balance of 2295 pounds. The patient has a total of 11,609 positive fluid balance. Weight has increased from 215 on admission to 231. That is about a 16-pound weight gain which I think it is all fluid. LABORATORY DATA: WBC is 13.25, hemoglobin is 10.3, platelet count of 221,000. Sodium is 138, potassium 4.6, chloride is 104, bicarbonate is 24, anion gap of 11, glucose 249. ASSESSMENT: 1. Fluid overload. 2. Protein calorie malnutrition with low albumin. 3. Small bowel obstruction status post terminal ileum resection and end-to-end anastomosis. 4. Surgical wound dehiscence status post repair twice. 5. Respiratory failure after surgical procedure. Patient has been extubated. 6. History of coronary artery disease status post coronary artery bypass graft. 7. Atrial fibrillation currently rate controlled. 8. Abdominal distention likely due to postop ileus. 9. Acute kidney injury, resolved. 10. Possible Enterobacter Aerogenes pneumonia, will continue with the antibiotic coverage. PLAN: 1. The general plan, patient seems to be relatively stable. I will discontinue the IV fluids this morning. 2. Patient will continue with the TPN, we will improve his nutritional status. 3. We are going to give the patient a dose of albumin with Lasix to address the fluid overload that he has. [facility]
[2016-11-13 11:36] LABS: ALBUMIN 2.4 g/dL (3.5-5.0); ALKALINE PHOSPHATASE 82 U/L (32-122); GOT 24 U/L (10-34); GPT 61 U/L (10-44); TOTAL BILIRUBIN 0.31 mg/dL (0.20-1.00); TOTAL PROTEIN 5.7 g/dL (6.3-8.3)
[2016-11-13 11:37] LABS: DIRECT BILIRUBIN < 0.20 mg/dL (0.00-0.20)
[2016-11-13] MEDS: LASIX IV SCH ×2 (14:17→21:43)
[2016-11-13] MEDS: ATIVAN IV PRN ×2 (14:56→21:43)
[2016-11-13] MEDS: LIPOSYN 20% 500 ML IV SCH (15:22)
[2016-11-14] MEDS: HEPARIN SUBQ SCH ×4 (00:12→23:09)
[2016-11-14] MEDS: LOPRESSOR IV SCH ×7 (00:12→23:09)
[2016-11-14] MEDS: HUMULIN R SUBQ SCH ×7 (00:14→23:09)
[2016-11-14] MEDS: TPN ELECTROLYTES 20 ML, MAGNESIUM SULFATE 5 MEQ, POTASSIUM CHLORIDE 30 MEQ, M.V.I.-12 1... IV SCH ×8 (00:15)
[2016-11-14] MEDS: MEFOXIN 2 GM/NS 50 ML IV SCH ×2 (03:23→10:33)
[2016-11-14] MEDS: DUONEB (A & A) INH SCH ×4 (03:31→21:20)
[2016-11-14] MEDS: DILAUDID IV PRN ×2 (04:54→14:11)
[2016-11-14] MEDS: SODIUM CHLORIDE 0.9% INJ SCH (05:02)
[2016-11-14] MEDS: PROTONIX IV SCH (05:02)
[2016-11-14 05:17] LABS: ALLEN TEST YES; BE 12.2 mmoll (-3.0-3.0); BLOOD TYPE ARTERIAL; DRAW SITE R RADIAL; PCO2(98.6) 34 mmHg (35-45); PO2(98.6) 147 mmHg (60-100); SAMPLE BLOOD; SRATE 10 BPM
[2016-11-14 05:19] LABS: MODALITY BI PAP; pH(98.6) 7.61 (7.35-7.45)
[2016-11-14 06:45] LABS: CALCIUM 8.5 mg/dL (8.8-10.2); MAGNESIUM 1.8 mg/dL (1.5-2.7); POTASSIUM 3.1 mmol/L (3.5-5.1); PREALBUMIN 8.6 mg/dL (20-40)
--- NOTE | 2016-11-14 08:08 | Diag Imaging Result Document ---
PROCEDURE NAME: CHEST-PORTABLE - 11/14/2016 PORTABLE CHEST 0500 HOURS: COMPARISON: 11/12/2016. FINDINGS: Endotracheal tube and PICC line remain in place. There has been interval decrease in basilar infiltrates or edema. There is no pneumothorax seen. Heart size appears upper normal. IMPRESSION: Interval decrease in basilar infiltrates/edema.
[2016-11-14] MEDS: ATIVAN IV PRN ×2 (08:44→21:50)
[2016-11-14] MEDS ORDERED: INSULIN PEN NEEDLES ONE (08:56)
[2016-11-14] MEDS: LANTUS SUBQ SCH (09:00)
[2016-11-14] MEDS ORDERED: DIAMOX IV ONE ×2 (09:29→18:00)
[2016-11-14] MEDS ORDERED: MAGNESIUM SULFATE 2 GM/S.W.I. 50 ML IV ONE (09:30)
[2016-11-14] MEDS ORDERED: POTASSIUM PHOSPHATE 20 MMOL in NS 250 ML IV ONE (10:00)
--- NOTE | 2016-11-14 10:53 | PROGRESS NOTE ---
DATE: 11/14/2016 SUBJECTIVE: Remains confused. He is on CPAP. OBJECTIVE/PHYSICAL EXAMINATION: Vital signs: Afebrile for the last 24. Pulse 88, blood pressure 138/65, oxygen saturation 97% on 35% FiO2 via BiPAP. Abdomen: Soft, nontender, mildly distended. His incision is intact. No CARSON drain. LABORATORY DATA: White count stable at 13, hematocrit is 33. ABGs: 7.61, 34, 147. Creatinine is 1.2. Glucoses are mildly elevated. ASSESSMENT AND PLAN: An 86-year-old male status post exploratory laparotomy for bowel obstruction and bowel resection and subsequent fascial dehiscence x2. He has got multiple retention sutures in place. This appears to be intact. Pulmonary issue and mental status are his main issues at this point. We are awaiting return of bowel function and keeping him n.p.o. in the meantime. Hospitalists are helping with his other medical issues. Will continue to monitor. He is on antibiotics and parenteral nutrition.
[2016-11-14] MEDS ORDERED: STERILE WATER INJ. ONE ×2 (11:12→17:09)
[2016-11-14] MEDS ORDERED: VANCOMYCIN IV PER PHARMACY MISC SCH (13:00)
[2016-11-14] MEDS: ZOSYN 3.375 GM/NS 50 ML IV SCH ×2 (14:00→18:07)
[2016-11-14 14:19] LABS: MANUAL DIFF NEEDED? NO
[2016-11-14 14:27] LABS: BASO% 0.5 % (0.0-0.8); EOS# 0.15 X1000 (0.0-0.7); EOS% 1.3 % (0.0-10.0); HEMATOCRIT 31.2 % (42.0-52.0); HEMOGLOBIN 9.8 g/dL (14.0-18.0); IMM GRAN# 0.05 X1000 (0.0-0.04); IMM GRAN% 0.4 % (0.0-0.5); LYMPH# 1.06 X1000 (1.2-3.4); LYMPH% 9.2 % (20.5-51.1); MCH 31.5 PG (27-31); MCHC 31.4 g/dL (33-37); MCV 100.3 FL (81-99); MONO# 1.06 X1000 (0.11-0.59); MONO% 9.2 % (1.7-9.3); MPV 11.4 FL (7.4-10.4); NEUT% 79.4 % (42.2-75.2); PLT 270 X1000 (130-400); RBC 3.11 XMIL (4.7-6.1)
[2016-11-14] MEDS ORDERED: VANCOMYCIN 2 GM in NS 500 ML IV ONE (15:00)
--- NOTE | 2016-11-14 15:25 | PROGRESS NOTE ---
DATE: 11/14/2016 Today Mr. Tucker was actually sleeping when I went in there to see him. He just got a dose of sedatives for agitation and he was not very communicative as before. OBJECTIVE: Vital signs: Blood pressure is 109/71, pulse of 83, respirations 18, temperature 97.1 degrees. General: Mr. Tucker is an 86-year-old male. He is in bed. He was sleepy in bed and seems to be in some painful discomfort. Mucosa is pink and moist. Anicteric. Acyanotic. Neck: Supple. Chest: Air entry is bilaterally reduced. A few bibasilar crepitations. Cardiovascular: Irregularly irregular but rate controlled. Abdomen: Very distended. There is a binder over the anterior abdominal wall. I took a look at the wound. The area around the incisions looks slightly red. The bottom part of the incision is more erythematous and seems to be tender when you touch patient's abdomen because he would grimace his face on abdominal palpation. LABORATORY DATA: WBC is up to 13.25, hemoglobin 10.3, platelet count of 221,000. Chemistry reviewed. Potassium is 3.1, glucose is 251. Sputum culture was positive for Enterobacter aeruginosa. ASSESSMENT: 1. Mild fluid overload. 2. Protein calorie malnutrition with extremely low albumin. 3. Status post bowel obstruction with terminal ileum resection and end-to-end anastomosis. 4. Surgical wound dehiscence status post repair twice. 5. Surgical wound, suspicious wound infection. This morning the wound looks pretty erythematous and the patient grimaces when you examine the abdomen. Patient is on cefoxitin, however WBC went up slightly and he looks very uncomfortable and I think the wound is getting infected so I will discontinue the cefoxitin, switch the patient to Zosyn and add vancomycin for possible MRSA coverage. 6. Respiratory failure after surgical procedure. The patient continues using BiPAP. He was successfully extubated. I suspect he has also obstructive sleep apnea as well. 7. History of coronary artery disease status post bypass graft. 8. Atrial fibrillation, currently rate controlled on Cardizem drip. 9. Abdominal distention, likely due to postop ileus. 10. Acute kidney injury, resolved. 11. Enterobacter aeruginosa pneumonia. The patient is now on Zosyn which will cover that as well. 12. Mixed alkalosis, both metabolic and respiratory. I will give the patient a dose of Diamox to correct the metabolic alkalosis. 13. Uncontrolled diabetes mellitus. Patient's glucose continues to go high. He is currently on sliding scale. I will add glargine 10 units for long acting coverage. 14. We will continue managing the patient in the ICU.
[2016-11-14] MEDS: LIPOSYN 20% 500 ML IV SCH (15:31)
[2016-11-14] MEDS: LASIX IV SCH (17:19)
[2016-11-14] MEDS: CARDIZEM 100 MG/NS 100 ML IV SCH (19:07)
[2016-11-15] MEDS: TPN ELECTROLYTES 20 ML, MAGNESIUM SULFATE 5 MEQ, POTASSIUM CHLORIDE 30 MEQ, M.V.I.-12 1... IV SCH ×8 (00:59)
[2016-11-15] MEDS: ZOSYN 3.375 GM/NS 50 ML IV SCH ×4 (00:59→18:02)
[2016-11-15] MEDS: DUONEB (A & A) INH SCH ×4 (03:36→22:56)
[2016-11-15] MEDS: LASIX IV SCH ×3 (04:02→23:41)
[2016-11-15] MEDS: HUMULIN R SUBQ SCH ×5 (04:03→21:31)
[2016-11-15] MEDS: LOPRESSOR IV SCH ×5 (04:03→22:30)
[2016-11-15 04:58] LABS: ALLEN TEST YES; BE 8.1 mmoll (-3.0-3.0); BLOOD TYPE ARTERIAL; DRAW SITE R RADIAL; METHB 1.9 % (0.0-1.5); O2(CT) 13.3 mL/dL (15.0-23.0); PCO2(98.6) 49 mmHg (35-45); PO2(98.6) 87 mmHg (60-100); SAMPLE BLOOD; SAO2 97.9 % (95.0-100.0); THB 9.9 g/dL (11.5-17.4); pH(98.6) 7.44 (7.35-7.45)
[2016-11-15 04:59] LABS: MODALITY BI PAP
[2016-11-15] MEDS: PROTONIX IV SCH (06:21)
[2016-11-15] MEDS: SODIUM CHLORIDE 0.9% INJ SCH (06:21)
[2016-11-15 06:39] LABS: CALCIUM 7.9 mg/dL (8.8-10.2); MAGNESIUM 2.2 mg/dL (1.5-2.7); POTASSIUM 3.5 mmol/L (3.5-5.1)
[2016-11-15] MEDS: HEPARIN SUBQ SCH ×2 (07:45→16:03)
--- NOTE | 2016-11-15 07:46 | Diag Imaging Result Document ---
PROCEDURE NAME: CHEST-PORTABLE - 11/15/2016 PORTABLE CHEST: COMPARISON: Compared to 11/14/2016. FINDINGS: No change in the right-sided PICC line or in the nasogastric tube. Poor inspiratory effort. Vascular distension is slightly less pronounced than the prior exam. There are small effusions with basilar atelectasis. IMPRESSION: Slight interval improvement
[2016-11-15] MEDS: DILAUDID IV PRN ×3 (07:56→22:30)
[2016-11-15] MEDS: LANTUS SUBQ SCH (08:06)
[2016-11-15 11:41] LABS: ALBUMIN 2.7 g/dL (3.5-5.0); DIRECT BILIRUBIN 0.2 mg/dL (0.00-0.20); TOTAL BILIRUBIN 0.39 mg/dL (0.20-1.00); TOTAL PROTEIN 5.4 g/dL (6.3-8.3)
--- NOTE | 2016-11-15 12:24 | PROGRESS NOTE ---
DATE: 11/15/2016 SUBJECTIVE: Today, Mr. Tucker refers to be doing okay. Denies any complaint. Per the nursing staff, he has been relatively stable. OBJECTIVE: Vital signs: Blood pressure is 122/65, pulse 82, respirations 25, temperature 98.1. General: The patient is an 86-year-old male. He is in bed, in no remarkable distress. HEENT: Mucosa is pink and moist, anicteric and acyanotic. Neck: Supple, short. No JVD. Chest: Air entry is bilaterally reduced. There are a few end expiratory wheezes. Cardiovascular: Irregularly irregular but rate controlled. There is a previous sternotomy scar. Abdomen: Distended. There is a binder over the anterior abdominal wall. The surgical incision wound looks pretty much the same as yesterday, a little erythematous and tender around the surgical wound. VEHICLE DAMAGE APPRAISER: The patient is alert and oriented x4. There is no focal neurological deficit. DIAGNOSTIC DATA: There is no CBC for today. The chemistry shows creatinine 1.3, slightly elevated. Glucose is 234. The patient's pH today is 7.44, markedly improved from yesterday which was 7.61, pCO2 is 49, paO2 is 82. CURRENT MEDICATIONS: TPN, heparin b.i.d., insulin glargine 10 units subcutaneously, sliding scale, Ativan p.r.n., metoprolol 5 mg IV q.4, vancomycin, morphine, Zosyn. ASSESSMENT: 1. Mild fluid overload, improving. 2. Protein calorie malnutrition with extreme low albumin. The patient is status post a dose of IV albumin infusion. 3. Small bowel obstruction, status post terminal ileum resection with end-to-end anastomosis. 4. Surgical wound dehiscence status post repair 2 times. 5. Suspected surgical wound infection. The patient was started on Zosyn and vancomycin yesterday. Vitals are stable. The wound was also cultured. So far, it is showing gram-positive 2+, gram- negative 2+. We will be waiting on the ID and sensitivity. 6. Respiratory failure after surgical procedure. The patient was successfully extubated. 7. Suspected obstructive sleep apnea. The patient has been using the BiPAP at night. 8. History of coronary artery disease, status post CABG. 9. Atrial fibrillation, currently rate controlled on Cardizem drip and scheduled metoprolol. 10.Acute kidney injury. The patient's creatinine went up slightly today. We will continue to avoid any nephrotoxic and continue gentle hydration through the TPN. 11.Enterobacter aeruginosa pneumonia which is sensitive to the Zosyn. We will continue with the same. 12.Mixed alkalosis, predominantly metabolic. This has improved with the dose of Diamox. 13.Diabetes mellitus is improving on the current insulin regimen. PLAN: In general, the patient is doing a whole lot better. We will continue with the current antibiotics, will be pending the wound culture. We will follow further recommendations from Surgery and Pulmonary Medicine who are also involved in the patient's care.
--- NOTE | 2016-11-15 13:50 | PROGRESS NOTE ---
DATE: 11/15/2016 SUBJECTIVE: He is more alert. No issues overnight. PHYSICAL EXAM: Vital signs: He is afebrile. No tachycardia. Blood pressure 122/63, oxygen saturation high 90s on 4 L. Abdomen: Soft, mildly distended. Incision has some slight erythema but the wound is intact. Neuro: He is alert, follows commands and speaks but is somewhat confused. DATA: White count on the 11th was down to 11. ABG 7.44, 49, 50, 87, 31. Creatinine is 1.3. ASSESSMENT/PLAN: An 86-year-old male bowel obstruction status post bowel resection and evisceration requiring washout and abdominal closure x2 gradually progressing from pulmonary, mental status standpoint but he is quite debilitated. Nothing in the way of bowel function yet. Will continue parenteral support, pulmonary toileting. He is on antibiotics as well.
[2016-11-15] MEDS: LIPOSYN 20% 500 ML IV SCH (16:03)
[2016-11-16] MEDS: DILAUDID IV PRN ×3 (00:49→23:05)
[2016-11-16] MEDS: HEPARIN SUBQ SCH ×3 (00:50→15:54)
[2016-11-16] MEDS: ZOSYN 3.375 GM/NS 50 ML IV SCH ×2 (00:50→06:56)
[2016-11-16] MEDS: HUMULIN R SUBQ SCH ×6 (00:56→20:17)
[2016-11-16] MEDS ORDERED: VANCOMYCIN 1.6 GM in NS 250 ML IV SCH (03:00)
[2016-11-16] MEDS: DUONEB (A & A) INH SCH ×4 (03:29→23:13)
[2016-11-16] MEDS: LOPRESSOR IV SCH ×7 (03:38→20:17)
[2016-11-16] MEDS: TPN ELECTROLYTES 20 ML, MAGNESIUM SULFATE 5 MEQ, POTASSIUM CHLORIDE 30 MEQ, M.V.I.-12 1... IV SCH ×16 (03:49→18:05)
[2016-11-16 04:55] LABS: MANUAL DIFF NEEDED? NO
[2016-11-16 05:11] LABS: ALLEN TEST YES; BE 9.2 mmoll (-3.0-3.0); BLOOD TYPE ARTERIAL; DRAW SITE R RADIAL; METHB 1.6 % (0.0-1.5); O2(CT) 13.6 mL/dL (15.0-23.0); PCO2(98.6) 39 mmHg (35-45); PO2(98.6) 174 mmHg (60-100); SAMPLE BLOOD; THB 9.7 g/dL (11.5-17.4); pH(98.6) 7.53 (7.35-7.45)
[2016-11-16 05:12] LABS: MODALITY CANNULA
[2016-11-16 05:22] LABS: BASO% 1.1 % (0.0-0.8); EOS# 0.24 X1000 (0.0-0.7); EOS% 2.3 % (0.0-10.0); HEMATOCRIT 30.1 % (42.0-52.0); HEMOGLOBIN 9.4 g/dL (14.0-18.0); IMM GRAN# 0.05 X1000 (0.0-0.04); IMM GRAN% 0.5 % (0.0-0.5); LYMPH# 1.54 X1000 (1.2-3.4); LYMPH% 14.7 % (20.5-51.1); MCH 31.2 PG (27-31); MCHC 31.2 g/dL (33-37); MONO# 1.08 X1000 (0.11-0.59); MONO% 10.3 % (1.7-9.3); MPV 11.8 FL (7.4-10.4); NEUT% 71.1 % (42.2-75.2); PLT 313 X1000 (130-400); RBC 3.01 XMIL (4.7-6.1)
[2016-11-16 05:41] LABS: CALCIUM 7.9 mg/dL (8.8-10.2); POTASSIUM 3.6 mmol/L (3.5-5.1)
--- NOTE | 2016-11-16 06:40 | PROGRESS NOTE ---
DATE: 11/16/2016 SUBJECTIVE: Some confusion overnight and this morning, reviewed notes from the weekend. No major changes. OBJECTIVE: Vital Signs: Patient is currently afebrile. His vital signs are stable. He is currently on TPN, Cardizem. His NG tubes only had 200 recorded out the last 24 hours. He had not had a bowel movement. General: No acute distress, but confused. Lungs: Coarse breath sounds noted. Cardiovascular: Some irregularities in it, but otherwise appears to be normal sinus rhythm. Abdomen: Less distended overall. Faint bowel sounds auscultated. His incision has some erythema noted to the lower aspect near his full-thickness and stitches. His physical exam is not consistent with abdominal compartment syndrome. His urine output has been adequate. LABORATORY: CBC reviewed. White blood cell count 10, hematocrit is 30, platelet count 313,000. BMP reviewed. His creatinine is 1.4. BUN 37. ASSESSMENT/PLAN: An 86-year-old male status post exploratory laparotomy with small- bowel resection with fascial dehiscence x2. Postoperative state, at this time his respiratory status appears to be stable. I think he can go to the CICU if okay with other consulting physicians. I think this would help his confusion at this time. His abdomen seems to be less distended. His NG tube has little output. He does have a KUB ordered for this morning. Would like to see if that holds, and shows if it appears to be improving, would consider starting trickle tube feeds which we can control little bit easier. Maybe this could encourage return of bowel function. We will continue to follow with you.
[2016-11-16] MEDS: SODIUM CHLORIDE 0.9% INJ SCH (06:55)
[2016-11-16] MEDS: PROTONIX IV SCH (06:55)
[2016-11-16] MEDS: CARDIZEM 100 MG/NS 100 ML IV SCH (07:57)
[2016-11-16] MEDS: LANTUS SUBQ SCH (09:34)
[2016-11-16] MEDS: LEVAQUIN 500 MG/D5W 100 ML IV SCH (09:34)
[2016-11-16] MEDS: LIPOSYN 20% 500 ML IV SCH (15:54)
--- NOTE | 2016-11-16 16:25 | PROGRESS NOTE ---
DATE: 11/16/2016 SUBJECTIVE: Today Mr. Tucker refers to be doing fine. He is more alert and conversational. OBJECTIVELY: Vital Signs: Blood pressure is 131/65, pulse of 18, temperature is 99, respiratory rate of 17. General Examination: Mr. Tucker is an 86-year-old male. He is in bed, not seemingly distressed. HEENT: Mucosa is pink and moist. Anicteric. Acyanotic. Neck: Supple. Chest: Air entry is bilaterally reduced. A few end inspiratory crackles in the posterior lung moore. Cardiovascular: Irregularly irregular, but rate controlled. No murmurs, no rubs, no gallops. There is an old sternotomy scar on the anterior midline chest wall. Abdomen: Soft. Is distended. Tympanic bowel sounds. Are hyporeactive. There is a fresh surgical wound on the anterior abdominal midline, which is affronted with clips. The incision area is erythematous. The distal part has some oozing going on. RETAIL GROCER: The patient is alert and oriented x4. No focal neurological deficit. LABORATORY DATA: WBC is 10.46, hemoglobin is 9.4, platelet count of 313,000. Chemistry: Sodium is 138, potassium 3.6, chloride 97, bicarb is 27. BUN is 37, creatinine is 1.4. CURRENT MEDICATIONS: Zosyn p.r.n., morphine p.r.n., lorazepam 1 mg IV q.6 p.r.n., TPN, levofloxacin. Cultures have shown that the wound culture is growing gram-negative michael, which is resistant to Zosyn and cephalosporin. I just got the report from the lab. It is not updated yet in the EMR. It is also sensitive to aminoglycosides and also to levofloxacin. ASSESSMENT: 1. Small bowel obstruction, status post terminal ileum resection with end-to- end anastomosis. Surgical wound dehiscence, status post repair 2 times. 2. Respiratory failure after surgical procedure. Patient was successfully extubated. 3. Atrial fibrillation, currently rate controlled. 4. Surgical wound infection with Enterobacter aerogenes, which is resistant to Zosyn and cephalosporins. We would therefore change the antibiotics to levofloxacin. 5. Protein calorie malnutrition. We will continue the TPN. 6. Suspected sleep apnea. The patient uses than the CPAP at night. 7. Acute kidney injury. Creatinine has gone up slightly to 1.4. I have therefore discontinue the vancomycin since we are not dealing with any gram-positive infection. In terms of nutritional needs, for now the patient is getting TPN. We will awaiting surgery to evaluate for his readiness to use the GI tract. The patient is requesting to have some ice chips. We will run that with the surgeons to see if they will be comfortable for the patient to have some ice chips. I spoke with Dr Toney He is ok for patient to be started on tube feeding Will start him on glucerna 20cc/hr and recheck residuals every 2 hours. MTDD
--- NOTE | 2016-11-16 17:01 | Diag Imaging Result Document ---
PROCEDURE NAME: SARAH ABDOMEN - 11/16/2016 ABDOMEN: COMPARISON: 11/04/2016. FINDINGS: There is significant barium in the colon similar to the prior exam. No definite bowel obstruction or free air. There are midline surgical skin anita. IMPRESSION: No specific acute disease.
--- NOTE | 2016-11-16 17:02 | Diag Imaging Result Document ---
PROCEDURE NAME: CHEST-PORTABLE - 11/16/2016 PORTABLE CHEST X-RAY: COMPARISON: 11/15/2016. FINDINGS: Stable right PICC line. Stable midline tube which is suggested to be a possible endotracheal tube. This is very poorly visible. Stable severely low lung volumes. Stable cardiomegaly. Stable left perihilar infiltrate and right basilar infiltrate. Stable small effusions. IMPRESSION: No significant change from prior.
[2016-11-16] MEDS: MORPHINE IV PRN (19:14)
[2016-11-16] MEDS: ATIVAN IV PRN (21:02)
[2016-11-17] MEDS: HUMULIN R SUBQ SCH ×7 (00:21→23:51)
[2016-11-17] MEDS: HEPARIN SUBQ SCH ×4 (00:21→23:51)
[2016-11-17] MEDS: LOPRESSOR IV SCH ×7 (00:21→23:51)
[2016-11-17] MEDS: DUONEB (A & A) INH SCH ×4 (03:40→22:55)
[2016-11-17] MEDS: DULCOLAX PR PRN (04:04)
[2016-11-17 04:40] LABS: ALLEN TEST YES; BE 4.1 mmoll (-3.0-3.0); BLOOD TYPE ARTERIAL; DRAW SITE R RADIAL; METHB 1.3 % (0.0-1.5); O2(CT) 19.9 mL/dL (15.0-23.0); PCO2(98.6) 44 mmHg (35-45); PO2(98.6) 58 mmHg (60-100); SAMPLE BLOOD; SAO2 93.3 % (95.0-100.0); THB 15.8 g/dL (11.5-17.4); pH(98.6) 7.43 (7.35-7.45)
[2016-11-17 04:41] LABS: MODALITY ROOM AIR
[2016-11-17] MEDS: DILAUDID IV PRN ×4 (04:49→22:30)
[2016-11-17] MEDS: PROTONIX IV SCH (05:13)
[2016-11-17] MEDS: SODIUM CHLORIDE 0.9% INJ SCH (05:13)
--- NOTE | 2016-11-17 05:15 | CONSULTATION ---
DATE OF CONSULTATION: 11/16/2016 CONCLUSION: The patient initially was admitted to the hospital with a bowel obstruction for which he underwent surgery performed by Dr. Toney. Since that time, he has had repeated surgeries for a wound dehiscence. There is a culture coming from one of the wounds that is growing a gram- negative michael. A culture from the patient's sputum is growing Enterobacter and the gram-negative michael from the wound may well be the same Enterobacter. Therefore, it appears the patient has a wound infection with a gram-negative michael which may be Enterobacter. The patient, on x-ray, does have bilateral infiltrates and, as mentioned above, the sputum is growing Enterobacter. Therefore, the patient may have an Enterobacter pneumonia. RECOMMENDATIONS: The Enterobacter is sensitive to all the antibiotics tested. He is on Levaquin and I think that would be a reasonable antibiotic to leave him on for his pneumonia and until we know the identity of the gram-negative michael in the wound, I think Enterobacter would also be a good choice. DISCUSSION: The patient seemed a little bit confused and it was difficult for him to answer questions so I was not able to get a history from him. History was taken from a review of the data in the computer. The patient presented to the emergency room with abdominal pain and a distended abdomen. Eventually, a diagnosis of bowel obstruction was made and the patient had surgery performed initially by Dr. Toney. Since that time, there have been surgeries because of wound dehiscence. There really have not been any major surgeries for wound dehiscence. It does not sound like there was much infection present. However, there is a culture which is growing a gram-negative michael and obviously the person who took the culture felt that there might be an infection and therefore he ordered the culture. LABORATORY DATA: The patient's laboratory data show he has a creatinine of 1.4, a GFR of 48. His chest x-ray shows bilateral infiltrates. The patient's CBC shows a white count of 10,460, hemoglobin 9.4, and platelet count 313,000. Arterial blood gases show a pH of 7.53, a PO2 of 174, and a pCO2 of 39. PAST MEDICAL HISTORY: Positive for diabetes mellitus, nephropathy, dyslipidemia, hypertension, coronary artery disease for which he required coronary artery bypass grafting, renal insufficiency, degenerative disk disease, and benign prostatic hypertrophy. PAST SURGICAL HISTORY: Patient's surgical history is positive for coronary artery bypass grafting, several lower back surgeries as well as fusion of a herniated disk, tonsillectomy, removal of a cyst from the right shoulder, and a hernia repair. SOCIAL HISTORY: He is . He has 4 children. The patient did smoke cigarettes but quit 45 years ago. He also reported previous alcohol use which continued until approximately 3 years ago. FAMILY HISTORY: Positive for heart disease, stroke, and dementia. ALLERGIES: Include Lyrica and Cardizem. HOME MEDICATIONS: Include the following: Tenormin, aspirin, Vytorin, duloxetine, pyridoxine, insulin, vitamin D2, temazepam, multivitamins, and thiamine. PHYSICAL EXAMINATION: Vital Signs: Temperature is 99 degrees, pulse 76, respirations 23, blood pressure 134/61. The patient's weight is listed as 224 pounds. General: This is a somewhat ill- appearing, elderly male. He is in no acute distress. Head, Eyes, Ears, Nose, and Throat: He can hear my spoken words and see near objects. No drainage is noted from the nose or ears. The patient has an NG tube in place. Neck: No meningismus. Thorax: Increased AP diameter of the chest. Lungs: Clear to auscultation. Cardiovascular: Heart rate was irregular. Peripheral pulses were diminished. Abdomen: Was soft but distended. It had a large dressing over it. The dressing was intact. Neurologic: Patient is awake. He was very slow to answer questions. He did follow requests to move his extremities. There was no tremor. Integument: No rash noted. Thank you for the consult.
[2016-11-17 06:31] LABS: CALCIUM 8.1 mg/dL (8.8-10.2); MAGNESIUM 2.1 mg/dL (1.5-2.7); POTASSIUM 3.9 mmol/L (3.5-5.1)
--- NOTE | 2016-11-17 07:28 | PROGRESS NOTE ---
DATE: 11/17/2016 SUBJECTIVE: Some confusion overnight. Overall doing well. Patient tolerated tube feeds starting yesterday at 20 mL an hour. His residuals have been low. OBJECTIVE: Vital Signs: Patient is currently afebrile. His vital signs are stable. He is on a Cardizem drip for atrial fibrillation. General Examination: No acute distress. Resting comfortably. Lungs: Coarse breath sounds. Cardiovascular: Irregularly irregular. Abdomen: Less distended overall. Bowel sounds auscultated. His incision and erythema noted lower aspect, near its full thickness sutures. His urine output reviewed has been good. LABORATORY: From yesterday reviewed. Abdominal films from yesterday reviewed. Overall improving. ASSESSMENT/PLAN: An 86-year-old, male, status post exploratory laparotomy with small- bowel resection, with fascial dehiscence x2. Postoperative state at this time. His respiratory status appears to be stable. I think he can go to the ICU and continue on his Cardizem drip today. I think his confusion would be helped if he could get out of the ICU. His abdomen seems less distended and he is tolerating his tube feeds at the time. Overall, his clinical picture is improving. His abdominal films are improving. We will continue to follow with you.
--- NOTE | 2016-11-17 08:00 | Diag Imaging Result Document ---
PROCEDURE NAME: CHEST-PORTABLE - 11/17/2016 SINGLE FRONTAL RADIOGRAPH OF THE CHEST: COMPARISON: 11/16/2016. FINDINGS: Right PICC line is stable. An NG tube projects below the diaphragm and out of the field of view. Inspiration remains suboptimal. Left perihilar infiltrate and right basilar infiltrate are approximately stable given differences in exposure. No new consolidations are identified. Cardiac silhouette is stable. IMPRESSION: Essentially stable chest.
[2016-11-17] MEDS ORDERED: INSULIN PEN NEEDLES ONE (08:13)
[2016-11-17] MEDS: LEVAQUIN 500 MG/D5W 100 ML IV SCH (08:16)
[2016-11-17] MEDS: LANTUS SUBQ SCH (08:18)
--- NOTE | 2016-11-17 14:18 | PROGRESS NOTE ---
DATE: 11/17/2016 SUBJECTIVE: Today Mr. Tucker referred to be doing fine. I understand he has been having some high residuals in his NG tube feedings. OBJECTIVE: Vitals: Stable. Blood pressure is 109/69, pulse of 83, respirations 18, temperature is 96.0 degrees. General exam: Mr. Tucker is an 86-year-old, male. Moderately obese. He is in bed, in no distress. HEENT: Mucosa is pink and moist. Anicteric. Acyanotic. Neck: Supple. Chest: Clear. Cardiovascular: Irregularly irregular, but rate controlled. There is an old sternotomy scar on the anterior chest wall. Abdomen: Soft, slightly tympanic. Sounds are hypoactive and patient has surgical binder around the abdomen. NATURAL HISTORY COLLECTIONS CURATOR: Alert. NG tube is in place. The Davis catheter is in place. LABORATORY DATA: WBC is 10.46, hemoglobin is 9.4, platelet count of 313. Chemistry reviewed and unremarkable. ASSESSMENT: 1. Small bowel obstruction status post terminal ileum resection and end-to-end anastomosis. 2. Surgical wound dehiscence status post 2 times treatment and repair. 3. Respiratory failure after surgical procedure. 4. Enterobacter aerogenes pneumonia. 5. Surgical wound infection with Enterobacter aerogenes. 6. Protein calorie malnutrition. Patient is on total parenteral nutrition. 7. Suspected sleep apnea. 8. Acute kidney injury, improved. 9. Atrial fibrillation, currently rate controlled on the Cardizem drip. I think patient is doing relatively stable. We are going to move him from the ICU to regular floor. Orders have already been put in by Dr. Rios. We will follow up with further recommendations from the other sub specialties involved in his care.
[2016-11-17] MEDS: CARDIZEM 100 MG/NS 100 ML IV SCH (16:12)
[2016-11-17] MEDS: LIPOSYN 20% 500 ML IV SCH (16:18)
--- NOTE | 2016-11-17 18:32 | PROGRESS NOTE ---
DATE: 11/17/2016 PRESENT ILLNESS: The patient has an Enterobacter pneumonia and an Enterobacter and enterococcal abdominal wound infection. MEDICATIONS: The patient is receiving Levaquin, tonight I have added ampicillin to cover the enterococcus. PHYSICAL EXAMINATION: Vital Signs: Temperature is 98.9 degrees, pulse 91, respirations 29, blood pressure 163/72. General: This is a very talkative person tonight. He is awake. He unfortunately is hard for me to understand what he is saying, but he appears to be in no acute distress. Lungs: Clear to auscultation. Cardiovascular: Heart rate is regular. Abdomen: There is a large binder around the abdomen. Neurologic: As mentioned above, the patient is talking. I cannot really understand what he is saying. Extremities: He can move his extremities. There is no tremor. LABORATORY AND X-RAY: Chest x-ray shows bilateral infiltrates. The patient's blood gases show a pH of 7.43, a PO2 of 58 and a pCO2 of 44. Creatinine is 1.2. GFR is 58. The wound culture as mentioned above grew enterococcus and Enterobacter. ASSESSMENT AND PLAN: 1. My plan is to continue Levaquin and as mentioned above, I have added ampicillin to cover the enterococcus and Levaquin to cover the Enterobacter in the patient's infections. 2. Comorbidities are diabetes mellitus and the patient had have multiple abdominal surgeries.
[2016-11-17] MEDS: AMPICILLIN 2 GM/NS 100 ML IV SCH ×2 (19:15→23:56)
[2016-11-17] MEDS: TPN ELECTROLYTES 20 ML, MAGNESIUM SULFATE 5 MEQ, POTASSIUM CHLORIDE 30 MEQ, M.V.I.-12 1... IV SCH ×8 (19:24)
[2016-11-17] MEDS: ATIVAN IV PRN (21:10)
[2016-11-17] MEDS: MORPHINE IV PRN (21:10)
[2016-11-18] MEDS: DUONEB (A & A) INH SCH ×4 (03:31→22:20)
[2016-11-18] MEDS: HUMULIN R SUBQ SCH ×6 (04:19→20:43)
[2016-11-18] MEDS: LOPRESSOR IV SCH ×5 (04:19→20:43)
[2016-11-18] MEDS: SODIUM CHLORIDE 0.9% INJ SCH (05:45)
[2016-11-18] MEDS: PROTONIX IV SCH (05:45)
--- NOTE | 2016-11-18 06:15 | PROGRESS NOTE ---
DATE: 11/18/2016 SUBJECTIVE: Patient transferred from the ICU to the CIC. Some mild confusion but otherwise no major issues. He is thus far tolerating his tube feeds overnight at 20 mL an hour. His residuals have been minimal. OBJECTIVE: Vital Signs: Patient is currently afebrile. His vital signs are stable. General Examination: No acute distress. Resting comfortably. Lungs: Coarse breath sounds. Cardiovascular: Regular. Abdomen: Overall still less distended. Bowel sounds auscultated. His incision has erythema noted to the lower aspect near the full-thickness sutures. Is and Os: His urine output has been good. Laboratory: Still pending from this morning. Chest x-ray is also pending. ASSESSMENT/PLAN: An 86-year-old, male status post exploratory laparotomy and small- bowel resection with fascial dehiscence x2. Postoperative state. At this time, he patient's respiratory status still remains stable. He is doing well in the CICU. We will observe his neurologic status while he is in the CICU. His abdomen seems less distended overall and he appears to be tolerating his tube feeds. At this time, may even consider adding Reglan. We will have physical therapy mobilize the patient to encourage some return of bowel function. I think his overall clinical picture is improving. His abdominal films have been improving. We will continue to follow with you while he is in the hospital.
[2016-11-18 06:21] LABS: MAGNESIUM 2.4 mg/dL (1.5-2.7); POTASSIUM 5.3 mmol/L (3.5-5.1)
[2016-11-18] MEDS: AMPICILLIN 2 GM/NS 100 ML IV SCH ×3 (06:40→19:12)
--- NOTE | 2016-11-18 07:00 | PROGRESS NOTE ---
DATE: 11/18/2016 PRESENT ILLNESS: The patient has an Enterobacter pneumonia and an Enterobacter and enterococcal abdominal wound infection. MEDICATIONS: The patient had been receiving Levaquin, and last night I added ampicillin. PHYSICAL EXAMINATION: Vital Signs: Temperature is 97.9 degrees, pulse 93, respirations 20, blood pressure 156/64. General: The patient seems somewhat delirious tonight. He would answer questions, but I could not understand what he was saying. Lungs: Clear to auscultation. Cardiovascular: Heart rate is regular. Abdomen: The abdomen has a binder around it. The binder is intact. Extremities: The legs, there is some mild edema, but no erythema. LABORATORIES AND X-RAY STUDIES: There are no new labs today, and there is also no new x-ray today. ASSESSMENT AND PLAN: The patient has pneumonia and a wound infection. My plan would be to continue with ampicillin, which is being given intravenously, and Levaquin PO. COMORBIDITIES: The patient's comorbidities are diabetes mellitus and the fact that the patient has had multiple abdominal surgeries. [facility]ITALJuju
--- NOTE | 2016-11-18 07:48 | Diag Imaging Result Document ---
PROCEDURE NAME: CHEST-PORTABLE - 11/18/2016 PORTABLE CHEST X-RAY: COMPARISON: 11/17/2016. FINDINGS: Stable endotracheal tube and right PICC line. Stable cardiomegaly and diffuse bilateral infiltrates consistent with edema. Stable small pleural effusions. IMPRESSION: No change from prior.
[2016-11-18] MEDS: LEVAQUIN 500 MG/D5W 100 ML IV SCH ×2 (08:09→12:13)
[2016-11-18] MEDS: HEPARIN SUBQ SCH ×2 (08:09→17:06)
[2016-11-18] MEDS: LANTUS SUBQ SCH ×2 (08:10→12:50)
[2016-11-18] MEDS ORDERED: D10W 1,000 ML IV SCH (14:00)
[2016-11-18] MEDS: TPN ELECTROLYTES 20 ML, MAGNESIUM SULFATE 5 MEQ, POTASSIUM CHLORIDE 20 MEQ, M.V.I.-12 1... IV SCH ×8 (18:11)
[2016-11-18] MEDS: LIPOSYN 20% 500 ML IV SCH (18:13)
--- NOTE | 2016-11-18 18:55 | PROGRESS NOTE ---
DATE: 11/18/2016 SUBJECTIVE: Today, Mr. Tucker refers to be doing fine. Denies any major complaints. OBJECTIVELY: Vital Signs: His vital signs have been relatively stable. Blood pressure is 140/60, pulse of 80, respirations 24, temperature 98.7 degrees. General: Mr. Tucker is an 86-year-old male. He is in bed, in no distress. HEENT: Mucosa is pink and moist. Anicteric. Acyanotic. Neck: Supple. Chest: Good air entry bilateral. No crepitations. No rhonchi. Cardiovascular: Regular rate and rhythm. Abdomen: Soft, distended. There is a binder around the abdominal wall. I did not look at the wound. TRADE ANALYST: He seems to be more alert, oriented. No focal neurological deficit. LABORATORY DATA: Chemistry: Sodium is 135, potassium is 5.3, chloride is 93, creatinine is 1.8, glucose is 848. ASSESSMENT: 1. Bowel obstruction, status post terminal ileum resection and end-to-end anastomosis. 2. Surgical wound dehiscence is status post 2 attempts at repair. 3. Enterobacter aeruginosa pneumonia. 4. Enterobacter and enterococcal surgical wound infection. 5. Protein calorie malnutrition on total parenteral nutrition. 6. Acute kidney injury, improved. 7. Suspected sleep apnea. 8. Atrial fibrillation, currently on Cardizem drip. 9. Uncontrolled diabetes mellitus. We are going to increase the glargine to 20 and use medium dose insulin. There have been some changes to the total parenteral nutrition since patient is tolerating the nasogastric tube feedings.
[2016-11-18] MEDS: MORPHINE IV PRN ×2 (19:13→20:43)
[2016-11-18] MEDS: DILAUDID IV PRN (21:45)
[2016-11-19] MEDS: DILAUDID IV PRN ×4 (00:05→13:58)
[2016-11-19] MEDS: LOPRESSOR IV SCH ×6 (00:41→20:24)
[2016-11-19] MEDS: HEPARIN SUBQ SCH ×3 (00:41→16:44)
[2016-11-19] MEDS: AMPICILLIN 2 GM/NS 100 ML IV SCH ×4 (00:41→20:24)
[2016-11-19] MEDS: HUMULIN R SUBQ SCH ×6 (00:51→20:24)
[2016-11-19] MEDS: DUONEB (A & A) INH SCH ×4 (04:21→22:17)
[2016-11-19] MEDS: PROTONIX IV SCH (05:04)
[2016-11-19] MEDS: SODIUM CHLORIDE 0.9% INJ SCH (05:06)
[2016-11-19 05:17] LABS: ALLEN TEST YES; BE 4.1 mmoll (-3.0-3.0); BLOOD TYPE ARTERIAL; DRAW SITE R RADIAL; METHB 1.9 % (0.0-1.5); O2(CT) 16.8 mL/dL (15.0-23.0); PO2(98.6) 66 mmHg (60-100); SAMPLE BLOOD; SAO2 94.9 % (95.0-100.0); THB 13.2 g/dL (11.5-17.4); pH(98.6) 7.37 (7.35-7.45)
[2016-11-19 05:18] LABS: MODALITY CANNULA; PCO2(98.6) 53 mmHg (35-45)
[2016-11-19 05:32] LABS: HEMATOCRIT 30.7 % (42.0-52.0); HEMOGLOBIN 9.4 g/dL (14.0-18.0); MCH 30.8 PG (27-31); MCHC 30.6 g/dL (33-37); MCV 100.7 FL (81-99); RBC 3.05 XMIL (4.7-6.1)
[2016-11-19 05:56] LABS: CALCIUM 8.2 mg/dL (8.8-10.2); MAGNESIUM 2.2 mg/dL (1.5-2.7); POTASSIUM 4.5 mmol/L (3.5-5.1); PREALBUMIN 15.6 mg/dL (20-40)
--- NOTE | 2016-11-19 06:13 | PROGRESS NOTE ---
DATE: 11/19/2016 SUBJECTIVE: Some slight increase in his abdominal distention reported by the nursing staff. His confusion has persisted. Otherwise, no major issues. OBJECTIVE: Vital Signs: Patient is currently afebrile. His vital signs were stable. General Examination: No acute distress but somewhat confused. Cardiovascular: Mildly tachycardic but consistent with atrial fibrillation. Lungs: Some coarse sounds. Abdomen: Maybe slightly more distended compared to previous days. Incision is essentially unchanged. Erythema noted at the lower aspect. He does have bowel sounds auscultated. LABORATORY: Reviewed. His white blood cell count was 11, hematocrit is 30. ASSESSMENT AND PLAN: An 86-year-old, male who is status post exploratory laparotomy and small bowel resection with fascial dehiscence x2. Postoperative state. At this time, the patient seems to be a little more confused. He also has some increase in his abdominal distention. He had overall been tolerating his tube feeds at a rate of 30. They are currently being held, checking residuals, but they will be restarted here shortly. I will get an abdominal film to evaluate for the increased distention. If he still has contrast in his colon, may need to consider enema. Also, if he does not have much improvement in the next couple days, may consider a small-bowel follow-through. I will continue to follow the patient with you.
--- NOTE | 2016-11-19 06:45 | PROGRESS NOTE ---
DATE: 11/19/2016 PRESENT ILLNESS: The patient has an Enterobacter pneumonia and Enterobacter and enterococcal abdominal wound infection. MEDICATIONS: The patient has been on Levaquin and ampicillin. This is day 2 of the treatment. PHYSICAL EXAMINATION: Vital Signs: Temperature is 97.8 degrees, pulse 102, respirations 22, blood pressure 140/66. Generally: The patient is ill-appearing and somewhat delirious. Lungs: Clear to auscultation. Cardiovascular: Irregular heart rate. Abdomen: Soft. I removed the binder. The incision is intact. There is no erythema. There is only a minimal amount of serosanguineous drainage. LAB AND X-RAY: There is no new x-ray today. Lab-lynch, the patient has a CBC with a white count of 11,160, hemoglobin 9.4, and platelet count 318,000. Blood gases show a pH of 7.37, a PO2 of 66, and a pCO2 of 53. The creatinine is 1.2. The GFR is 58. ASSESSMENT AND PLAN: The patient has pneumonia and a wound infection. My plan is to continue with the current antibiotics, namely intravenous ampicillin and oral Levaquin. COMORBIDITIES: Include diabetes mellitus, the patient is elderly, and he has had multiple abdominal surgeries.
[2016-11-19] MEDS: LANTUS SUBQ SCH (08:38)
[2016-11-19] MEDS: LEVAQUIN 500 MG/D5W 100 ML IV SCH (08:39)
[2016-11-19] MEDS: VITAMIN D PO SCH (09:01)
--- NOTE | 2016-11-19 09:36 | Diag Imaging Result Document ---
PROCEDURE NAME: ABDOMEN FLAT/UPRIGHT - 11/19/2016 PORTABLE SUPINE UPRIGHT ABDOMEN: Compared with 11/16/2016. FINDINGS: There is residual barium throughout much of the colon, similar to the previous exam. There is gas visible in a mildly distended distal small bowel on the right. There is no other substantial gaseous small-bowel distention identified. There are skin anita noted. IMPRESSION: Residual barium in colon. Nonspecific bowel gas pattern otherwise.
--- NOTE | 2016-11-19 17:12 | PROGRESS NOTE ---
DATE: 11/19/2016 SUBJECTIVE: Today Mr. Tucker referred to be doing fine. He was in bed. He did not have any major problems. OBJECTIVE: Vital Signs: Stable. Blood pressure is 111/45, pulse of 96, respirations 22, temperature is 98.1 degrees. General: Mr. Tucker is an 86-year-old male. He is in bed. It did not seem to be in any distress. HEENT: Mucosa is pink and moist. Anicteric. Acyanotic. Neck: Supple. Chest: Clear. Cardiovascular: Regular rate and rhythm. Abdomen: Soft, distended. He has a binder. I did not look at the wound. PERIANESTHESIA RN: Patient is alert and oriented x4. LABORATORY DATA: WBC is 11.16, hemoglobin is 9.4, platelet count of 318,000. Sodium is 140, potassium is 4.5, chloride is 102, bicarb is 27. Creatinine is normal. Glucose is slightly high at 189. ASSESSMENT: 1. Bowel obstruction status post terminal ileum resection and end-to-end anastomosis. 2. Surgical wound dehiscence a status post 2 attempts at repair. 3. Enterobacter pneumonia. 4. Enterobacter and enterococcal surgical wound infection. 5. Protein calorie malnutrition. Patient is currently on TPN and tolerating gradual tube feedings. 6. Acute kidney injury, resolved. 7. Atrial fibrillation. The patient is on a Cardizem drip until we switch this to p.o. 8. Diabetes mellitus is better controlled. 9. Suspected sleep apnea, noted. 10. Vitamin D deficiency. We will start replacing when the patient is using the enteral route adequately. PLAN: So in enemas, Mr. Tucker has been in hospital for the past 19 days. Initially presented because of abdominal pain at [facility] where he was found to have possible intestinal obstruction. The patient was subsequently transferred here and Dr. Toney did an initial exploratory laparotomy with small bowel resection on November 04, 2016. The patient was in the ICU. Subsequently he 2 wound dehiscences which were intervened. The wound got infected with Enterobacter aeruginosa and enterococcus. He also developed pneumonia during the hospital stay. The patient is being seen by Dr. Hernandez as well and he is managing his antibiotic needs. I think the patient is gradually getting better. We will continue with very gradual physical therapy. We will be going up on his tube feedings and cutting down on the TPN. Will readjust his insulin needs accordingly. I think he will be here for a little while and when he is ready to be discharged, I think he will needs to go in a rehab.
[2016-11-19] MEDS: TPN ELECTROLYTES 20 ML, MAGNESIUM SULFATE 5 MEQ, POTASSIUM CHLORIDE 20 MEQ, M.V.I.-12 1... IV SCH ×8 (18:36)
[2016-11-19] MEDS: LIPOSYN 20% 500 ML IV SCH (20:25)
[2016-11-20] MEDS: HEPARIN SUBQ SCH ×3 (01:00→16:39)
[2016-11-20] MEDS: LOPRESSOR IV SCH ×6 (01:00→21:48)
[2016-11-20] MEDS: CARDIZEM 100 MG/NS 100 ML IV SCH (01:01)
[2016-11-20] MEDS: AMPICILLIN 2 GM/NS 100 ML IV SCH ×4 (01:01→21:49)
[2016-11-20] MEDS: HUMULIN R SUBQ SCH ×6 (01:03→21:48)
[2016-11-20] MEDS: DUONEB (A & A) INH SCH ×4 (03:18→22:53)
[2016-11-20 04:59] LABS: ALLEN TEST YES; BE 4.1 mmoll (-3.0-3.0); BLOOD TYPE ARTERIAL; DRAW SITE R RADIAL; METHB 1.5 % (0.0-1.5); O2(CT) 17.4 mL/dL (15.0-23.0); PCO2(98.6) 41 mmHg (35-45); PO2(98.6) 77 mmHg (60-100); SAMPLE BLOOD; SAO2 97.5 % (95.0-100.0); THB 13.2 g/dL (11.5-17.4); pH(98.6) 7.45 (7.35-7.45)
[2016-11-20 05:02] LABS: MODALITY CANNULA
[2016-11-20 05:10] LABS: MANUAL DIFF NEEDED? NO
[2016-11-20 05:13] LABS: BASO% 0.3 % (0.0-0.8); EOS# 0.17 X1000 (0.0-0.7); EOS% 1.4 % (0.0-10.0); HEMATOCRIT 31.2 % (42.0-52.0); HEMOGLOBIN 9.6 g/dL (14.0-18.0); IMM GRAN# 0.09 X1000 (0.0-0.04); IMM GRAN% 0.8 % (0.0-0.5); LYMPH# 1.15 X1000 (1.2-3.4); LYMPH% 9.7 % (20.5-51.1); MCH 30.5 PG (27-31); MCHC 30.8 g/dL (33-37); MONO# 0.96 X1000 (0.11-0.59); MONO% 8.1 % (1.7-9.3); NEUT% 79.7 % (42.2-75.2); PLT 290 X1000 (130-400); RBC 3.15 XMIL (4.7-6.1)
[2016-11-20 05:32] LABS: CALCIUM 8.3 mg/dL (8.8-10.2); POTASSIUM 4.3 mmol/L (3.5-5.1)
--- NOTE | 2016-11-20 06:14 | PROGRESS NOTE ---
DATE: 11/20/2016 SUBJECTIVE: The patient is doing better. He had a bowel movement last night. He tolerated his enemas with some improvement in his distention. OBJECTIVE: Vital Signs: Patient is currently afebrile. His vital signs have been stable. General: No acute distress but still somewhat confused. Cardiovascular: Mildly tachycardic that is consistent with atrial fibrillation. Lungs: Some coarse sounds noted bilaterally. Abdomen: Less distended compared to previous days. Incision is essentially unchanged. Erythema noted to the lower aspect. LABORATORY: Reviewed from yesterday. ASSESSMENT AND PLAN: An 86-year-old, male who is status post exploratory laparotomy and small-bowel resection with fascial dehiscence x2. Postoperative state: At this time, he seems to be doing okay. He reviewed his films from yesterday. I suspect some of his obstructions is because he has barium and in his colon that has solidified. We will try the soapsuds enemas to try to loosen this up. We have had some improvement with his distention after 2 enemas and he has had a bowel movement. At this time, we will continue current treatment. We will recheck his abdominal film this morning to see what progress we have made. We will keep his tube feeds at the current rate. We will also monitor his confusion. My partner will evaluate the patient over the weekend.
[2016-11-20] MEDS ORDERED: SODIUM CHLORIDE 0.9% 10 ML ONE (06:20)
[2016-11-20] MEDS: PROTONIX IV SCH (06:22)
[2016-11-20] MEDS: SODIUM CHLORIDE 0.9% INJ SCH (06:22)
--- NOTE | 2016-11-20 06:50 | PROGRESS NOTE ---
DATE: 11/20/2016 PRESENT ILLNESS: The patient has an Enterobacter pneumonia and Enterobacter and enterococcal abdominal wound infection This morning the patient is short of breath and is wheezing. MEDICATIONS: Patient has been on Levaquin and ampicillin now for 3 days. PHYSICAL EXAMINATION: Vital Signs: Temperature is 97.9 degrees, pulse 90, respirations 16, blood pressure 154/64. General: This is an ill-appearing, elderly male. He does seem to be dyspneic at rest. Lungs: There were expiratory wheezes more prominent on the right side than the left. Cardiovascular: Heart rate is irregular. Abdomen: Distended. Extremities: The patient does have bilateral leg edema. LAB AND X-RAY: There is no new x-ray for today. The patient's lab work [place] [address], hemoglobin 9.6, and platelet count 290,000. Arterial blood gases show a pH of 7.45, a PO2 of 77 and a pCO2 of 41. The creatinine is 1.2. The GFR is 58. ASSESSMENT AND PLAN: I discussed the patient with Dr. Toney. We are going to go ahead and get a portable chest x-ray at this time. I am going to continue the patient's current antibiotics. COMORBIDITIES: Include diabetes mellitus. The patient is elderly and he has had multiple abdominal procedures. MTDD
[2016-11-20] MEDS ORDERED: LASIX IV ONE (07:27)
[2016-11-20] MEDS ORDERED: NITROGLYCERIN TOP ONE (07:27)
[2016-11-20] MEDS ORDERED: DUONEB (A & A) INH PRN (07:32)
--- NOTE | 2016-11-20 08:33 | Diag Imaging Result Document ---
PROCEDURE NAME: FLAT/UPRIGHT ABD/1 VIEW CHEST - 11/20/2016 FLAT AND UPRIGHT AND CHEST, THREE VIEWS: COMPARISON: The chest is compared to 11/18/2016. FINDINGS: There are sternal wires and surgical clips. No change in the right-sided PICC line. I believe there is an endotracheal tube with its tip near the eileen. This is actually difficult to see due to the patient's size and the technique. There is atelectasis or small basilar infiltrates. Overall, the findings are similar to the prior exam. No free air beneath the diaphragm. There are midline skin anita. Contrast is found throughout the colon. The bowel loops are not dilated. No organomegaly. There is scoliosis with degenerative spine changes as well as prior surgery to the lower lumbar spine. IMPRESSION: 1. Stable chest. 2. No acute abdominal abnormality.
[2016-11-20] MEDS: LEVAQUIN 500 MG/D5W 100 ML IV SCH (08:37)
[2016-11-20] MEDS: LANTUS SUBQ SCH (08:37)
[2016-11-20] MEDS: DILAUDID IV PRN (11:03)
[2016-11-20 13:28] LABS: MAGNESIUM 2.2 mg/dL (1.5-2.7)
[2016-11-20] MEDS ORDERED: LANTUS SUBQ SCH (15:15)
[2016-11-20] MEDS: HALDOL IV PRN (15:53)
--- NOTE | 2016-11-20 15:58 | Diag Imaging Result Document ---
PROCEDURE NAME: LUNG SCAN / VQ - 11/20/2016 NUCLEAR MEDICINE V/Q SCAN: COMPARISON: None available. FINDINGS: 40.9 millicuries of aerosolized technetium-99m DTPA was administered for the ventilation portion of the scan. 5.8 mCi of technetium-99m MAA was administered intravenously for the perfusion portion of the scan. No definite perfusion defects are identified on the perfusion portion of the scan. There is condensation of some of the radiotracer in the mainstem bronchi on the ventilation portion of the scan. It is grossly unremarkable, otherwise. IMPRESSION: Low probability of pulmonary embolism.
--- NOTE | 2016-11-20 16:04 | PROGRESS NOTE ---
DATE: 11/20/2016 SUBJECTIVE: When I evaluated this patient today in the morning, he was complaining of shortness of breath and chest tightness. He was wheezing and he was getting treatment. I re- evaluated this patient right now and he feels much better. He is using a Venturi mask and the oxygen saturation has been acceptable. We did order a D-dimer in the morning and it came back elevated. Because his kidney function is not normal, the creatinine is a little bit elevated and the BUN is a little bit elevated, I rather prefer to perform a V/Q scan of the lungs to rule out any possibility of pulmonary embolism. Otherwise, this patient states that he is feeling fine, but he is confused on and off. OBJECTIVE: Vital Signs: Temperature 99 degrees, pulse 101, respiratory rate 18, blood pressure 152/71, oxygen saturation 99 on a Venturi mask. HEENT: Head normocephalic. No trauma. PERRLA. Neck: Supple. No JVD. No masses. Central trachea. Chest: Clear to auscultation. Decreased breath sounds globally. Scattered wheezing. No rales. Cardiovascular: RRR. No murmurs. Abdomen: Soft. It is distended. He has a binder. I did not check the wound; I do not want to remove the binder. Neurological examination: The patient is alert and oriented x3, he is sometimes confused on and off. When I talked to him in the morning he was oriented, but at this moment he is confused, but he is still able to say the date, location and also he is oriented to person. LABORATORY: WBC 11.8, hemoglobin 9.6, hematocrit 31.2, platelet 290. Sodium 142, potassium 4.3, chloride 104, bicarbonate 26, BUN 33, creatinine 1.2, glucose 201, calcium 8.3, phosphorus 2.5, BNP 784, magnesium 2.2. ASSESSMENT AND PLAN: 1. Bowel obstruction status post terminal ileum resection and end-to-end anastomosis. Surgery Department is following this patient. We will follow the recommendation of the Surgery Department. This patient is passing gas. He is not complaining of. He is not complaining about abdominal pain at this moment. 2. Surgical wound dehiscence, status post two attempts to repair. At this moment, he is using a binder. He is not complaining about pain. The abdomen is soft. Surgery is following this patient. 3. Enterobacter pneumonia and enterococcal surgical wound infection. Infectious Disease Department is following this patient. We will continue with antibiotics. He is not having fever or chills. 4. Respiratory distress. This patient was complaining today of shortness of breath and he was wheezing. He is getting respiratory treatment. We asked for a D-dimer that is elevated. I will ask for a V/Q scan to rule out pulmonary embolism. In the meantime, we will continue with anticoagulation, breathing treatment and oxygen. 5. Protein calorie malnutrition. This patient is on total parenteral nutrition and will continue with nasogastric tube feeding. 6. Acute kidney injury. This is his baseline. We will continue to monitor. 7. Atrial fibrillation. At this moment, the rate is controlled. We will continue with diltiazem and following the recommendation of cardiology. 8. Type 2 diabetes is better controlled, but I will increase the dose of Lantus. He received yesterday a total of 27 units of regular insulin. I will increase the dose of Lantus from 20- 30 and I will monitor. 9. Suspected sleep apnea, noted. 10. Vitamin D deficiency. We will start replacing vitamin D once the patient is able to tolerate oral. 11. Macrocytic anemia. I will ask for folate and B 12 levels, will monitor. The hemoglobin has been stable. CRITICAL CARE TIME: 35 minutes.
[2016-11-20] MEDS ORDERED: STERILE WATER INJ. INJ PRN (16:11)
[2016-11-20] MEDS: GEODON IM PRN (16:26)
[2016-11-20] MEDS: TPN ELECTROLYTES 20 ML, MAGNESIUM SULFATE 5 MEQ, POTASSIUM CHLORIDE 20 MEQ, M.V.I.-12 1... IV SCH ×8 (18:11)
[2016-11-20] MEDS: LIPOSYN 20% 500 ML IV SCH (21:50)
[2016-11-21] MEDS: HUMULIN R SUBQ SCH ×7 (00:08→23:53)
[2016-11-21] MEDS: HEPARIN SUBQ SCH ×4 (00:09→21:57)
[2016-11-21] MEDS: LOPRESSOR IV SCH ×6 (02:22→21:57)
[2016-11-21] MEDS: AMPICILLIN 2 GM/NS 100 ML IV SCH ×4 (02:23→21:55)
[2016-11-21] MEDS: GEODON IM PRN (02:38)
[2016-11-21] MEDS: DUONEB (A & A) INH SCH ×5 (04:01→23:00)
[2016-11-21] MEDS: SODIUM CHLORIDE 0.9% INJ SCH (04:47)
[2016-11-21] MEDS: PROTONIX IV SCH ×2 (04:47→05:44)
[2016-11-21 05:06] LABS: ALLEN TEST YES; BE 5.2 mmoll (-3.0-3.0); BLOOD TYPE ARTERIAL; DRAW SITE R RADIAL; METHB 1.5 % (0.0-1.5); O2(CT) 17.5 mL/dL (15.0-23.0); PCO2(98.6) 43 mmHg (35-45); PO2(98.6) 58 mmHg (60-100); SAMPLE BLOOD; SAO2 96.1 % (95.0-100.0); THB 13.5 g/dL (11.5-17.4); pH(98.6) 7.45 (7.35-7.45)
[2016-11-21 05:07] LABS: MODALITY BI PAP
[2016-11-21 05:11] LABS: MANUAL DIFF NEEDED? NO
[2016-11-21 05:18] LABS: BASO% 0.5 % (0.0-0.8); EOS# 0.34 X1000 (0.0-0.7); EOS% 3.2 % (0.0-10.0); HEMATOCRIT 29.7 % (42.0-52.0); HEMOGLOBIN 9.2 g/dL (14.0-18.0); IMM GRAN# 0.06 X1000 (0.0-0.04); IMM GRAN% 0.6 % (0.0-0.5); LYMPH# 1.22 X1000 (1.2-3.4); LYMPH% 11.3 % (20.5-51.1); MCH 31.2 PG (27-31); MCV 100.7 FL (81-99); MONO% 8.3 % (1.7-9.3); MPV 11.1 FL (7.4-10.4); NEUT% 76.1 % (42.2-75.2); PLT 248 X1000 (130-400); RBC 2.95 XMIL (4.7-6.1)
[2016-11-21 05:35] LABS: AGAP 12; BUN 35 mg/dL (8-22); CALCIUM 8.1 mg/dL (8.8-10.2); CHLORIDE 105 mmol/L (98-107); COSMO 297; IRON SATURATION 18 %; POTASSIUM 4.2 mmol/L (3.5-5.1); SODIUM 143 mmol/L (136-145); TCO2 26 mmol/L (25-35); TIBC 173 ug/dL; TOTAL IRON 31 ug/dL (53-167); UNBOUND IRON 142 ug/dL (112-346)
[2016-11-21 06:00] LABS: FERRITIN 405 ng/mL (30-400)
[2016-11-21] MEDS: HALDOL IV PRN ×3 (06:06→23:52)
[2016-11-21] MEDS: DILAUDID IV PRN ×3 (07:27→15:47)
[2016-11-21] MEDS: FOLIC ACID PO SCH (10:02)
[2016-11-21] MEDS: LANTUS SUBQ SCH (10:02)
[2016-11-21] MEDS: LEVAQUIN 500 MG/D5W 100 ML IV SCH (10:03)
--- NOTE | 2016-11-21 11:05 | PROGRESS NOTE ---
DATE: 11/21/2016 SUBJECTIVE: This patient looks a little bit better today. He is still complaining of mild shortness of breath. He has end-expiratory wheezing, and I rescheduled the respiratory treatment q.4 h. plus p.r.n. respiratory treatment, as well. Family member at the bedside, the son, and I answered all his questions. Yesterday, we had a high D-dimer, was ordered because this patient had sudden onset of shortness of breath. We were concerned about a pulmonary embolism, but the V/Q scan showed a low probability of PE. This patient is still confused. He is able to say his name, and he recognized his family member. Apparently, this confusion has been on and off. OBJECTIVE: Vital signs: Temperature 98.6, pulse 84, respiratory rate 24, blood pressure 125/56, oxygen saturation 100% on Ventimask. HEENT: Head normocephalic, atraumatic, PERRLA. Neck: Supple, no JVD, no masses, central trachea. Chest: Clear to auscultation, decreased breath sounds globally. Scattered expiratory wheezing, no rales. Cardiovascular: RRR, no murmurs. Abdomen: Soft. It is distended, positive bowel sounds. He has a binder. I did not check his wound. Neurological: The patient is alert and oriented x2. He is not oriented in time. He is confused on and off. LABORATORY: WBC 10.7, hemoglobin 9.2, hematocrit 29.7, platelets 248. Sodium 143, potassium 4.2, chloride 105, bicarbonate 26, BUN 35, creatinine 1.1, glucose 173, calcium 8.1. Folate is 7.2. ASSESSMENT AND PLAN: 1. Bowel obstruction status post terminal ileum resection and end-to-end anastomosis. Surgery department is following this patient. We will follow the recommendations of surgery department. As per the patient, he has been passing gas. He is not complaining of belly pain at this moment. 2. Surgical wound dehiscence status post 2 attempts to repair. At this moment, he is using and abdominal binder. He is not complaining about the pain. The abdomen is soft, moderate distension, Surgery is following. 3. Enterobacter pneumonia and enterococcal surgical wound infection. Infectious disease department is following this patient. Will continue with the antibiotics. He is not having any fever or chills at this moment. 4. Respiratory distress. This patient was complaining yesterday of shortness of breath. We got a D-dimer that was elevated, and we asked for a V/Q scan that showed a low probability of pulmonary embolism. I increased the rate of the nebulization. It will be q.4 h. and p.r.n., as well, q.2 h. 5. Protein calorie malnutrition. This patient is on total parenteral nutrition, and will continue with NG tube feedings. 6. Acute kidney injury. This is his baseline. Will continue to monitor. 7. Atrial fibrillation, rate controlled. Cardiology department is following this patient. 8. Type 2 diabetes. This is better controlled. I increased the dose of Lantus yesterday from 20 to 30. Today, he is much better, but I will increase the dose again to 35 and I will monitor. 9. Suspected sleep apnea, noted. I talked to the son about this issue, and I told him that he needs to get a sleep study as an outpatient. 10.Vitamin D deficiency. Continue with the same management. We will start replacing Vitamin D once the patient is able to tolerate p.o. 11 Macrocytic anemia. I have the folate and B12 levels back. B12 is normal, and the folate level is low. I will start replacing the folate on this patient. Critical care time 35 minutes.
[2016-11-21] MEDS: DULCOLAX PR PRN (17:36)
[2016-11-21] MEDS: TPN ELECTROLYTES 20 ML, MAGNESIUM SULFATE 5 MEQ, POTASSIUM CHLORIDE 20 MEQ, M.V.I.-12 1... IV SCH ×8 (18:07)
[2016-11-21] MEDS: LIPOSYN 20% 500 ML IV SCH (18:07)
[2016-11-21] MEDS: CARDIZEM 100 MG/NS 100 ML IV SCH (21:56)
[2016-11-22] MEDS: LOPRESSOR IV SCH ×6 (02:53→22:36)
[2016-11-22] MEDS: AMPICILLIN 2 GM/NS 100 ML IV SCH ×4 (02:53→22:36)
[2016-11-22] MEDS: DUONEB (A & A) INH SCH ×7 (03:30→23:11)
[2016-11-22] MEDS: HEPARIN SUBQ SCH ×3 (04:57→22:36)
[2016-11-22] MEDS: SODIUM CHLORIDE 0.9% INJ SCH (04:58)
[2016-11-22] MEDS: PROTONIX IV SCH ×2 (04:58→07:27)
[2016-11-22 05:22] LABS: ALLEN TEST YES; BE 3.6 mmoll (-3.0-3.0); BLOOD TYPE ARTERIAL; DRAW SITE L RADIAL; METHB 1.9 % (0.0-1.5); O2(CT) 19.2 mL/dL (15.0-23.0); PCO2(98.6) 43 mmHg (35-45); PO2(98.6) 123 mmHg (60-100); SAMPLE BLOOD; SAO2 99.5 % (95.0-100.0); THB 14.2 g/dL (11.5-17.4); pH(98.6) 7.43 (7.35-7.45)
[2016-11-22 05:23] LABS: MODALITY CANNULA
[2016-11-22 05:27] LABS: MANUAL DIFF NEEDED? NO
[2016-11-22 05:39] LABS: BASO% 0.3 % (0.0-0.8); EOS% 4.4 % (0.0-10.0); HEMATOCRIT 29.7 % (42.0-52.0); HEMOGLOBIN 8.7 g/dL (14.0-18.0); IMM GRAN# 0.03 X1000 (0.0-0.04); IMM GRAN% 0.3 % (0.0-0.5); LYMPH# 0.78 X1000 (1.2-3.4); LYMPH% 8.6 % (20.5-51.1); MCH 30.5 PG (27-31); MCHC 29.3 g/dL (33-37); MCV 104.2 FL (81-99); MONO# 0.66 X1000 (0.11-0.59); MONO% 7.2 % (1.7-9.3); MPV 11.6 FL (7.4-10.4); NEUT% 79.2 % (42.2-75.2); PLT 221 X1000 (130-400); RBC 2.85 XMIL (4.7-6.1)
[2016-11-22] MEDS: HUMULIN R SUBQ SCH ×5 (06:26→23:56)
[2016-11-22 07:31] LABS: AGAP 14; BUN 35 mg/dL (8-22); CALCIUM 7.7 mg/dL (8.8-10.2); CHLORIDE 105 mmol/L (98-107); COSMO 297; POTASSIUM 4.4 mmol/L (3.5-5.1); SODIUM 143 mmol/L (136-145); TCO2 24 mmol/L (25-35)
[2016-11-22] MEDS: LANTUS SUBQ SCH ×3 (08:38→09:51)
[2016-11-22] MEDS: FOLIC ACID PO SCH (08:38)
[2016-11-22] MEDS: LEVAQUIN 500 MG/D5W 100 ML IV SCH (09:52)
--- NOTE | 2016-11-22 11:05 | PROGRESS NOTE ---
DATE: 11/22/2016 SUBJECTIVE: This patient looks better today. He is still confused though. Today, he is breathing better and he is tolerating a clear liquid diet. He is getting TPN, clear liquid diet, and tube feedings as well through an NG tube. Probably, we can discontinue the TPN soon but I leave that decision to the surgery department. We were concerned about pulmonary embolism a few days ago and he had a V/Q scan that showed a low probability of PE. OBJECTIVE: Vital Signs: Temperature 97.2 degrees, pulse 92, respiratory rate 24, blood pressure 124/64, oxygen saturation 100% on 5 L of nasal cannula. HEENT: Head normocephalic. No trauma. PERRLA. Neck: Supple. No JVD. No masses. Central trachea. Chest: Coarse breath sounds, decreased sounds globally, prolonged expiatory phase. Cardiovascular: RRR. No murmurs. Abdomen: Soft. Distended. Positive bowel sounds. He has a binder. I did not check his wound. Neurological Examination: The patient is alert. He is oriented x2. He is able to say his name but he is confused on and off. Laboratory: WBC 9.1, hemoglobin 8.7, hematocrit 29.7, platelets 221,000. Sodium 143, potassium 4.4, chloride 105, bicarbonate 24, BUN 35, creatinine 1.1, glucose 167, calcium 7.7. ASSESSMENT AND PLAN: 1. Bowel obstruction, status post terminal ileum resection and end to end anastomosis. The surgery department is following this patient. This patient had about 6 bowel movements during the night. He has been passing gas. He is not complaining of belly pain but the abdomen is distended. He is tolerating orals. Also, he is on total parenteral nutrition and nasogastric tube feedings. Probably, we can stop the total parenteral nutrition very soon. 2. Surgical wound dehiscence, status post 2 attempts to repair. At this time, he is using an abdominal binder. He is not complaining about pain. The abdomen is soft. Moderate distention. Surgery is following. 3. Enterobacter pneumonia and enterococcal surgical wound infection. Infectious disease department is following this patient. We will continue following the recommendations of Dr. Hernandez. I will continue with the antibiotics. 4. Respiratory distress. Two days ago, this patient was complaining of respiratory distress and shortness of breath. We got a D-dimer that was elevated and we asked for a V/Q scan that showed low probability of pulmonary embolism. At this moment, this patient is not complaining of shortness of breath. We will continue with the nebulization as well and oxygen. 5. Protein calorie malnutrition. As I mentioned before, this patient is on total parenteral nutrition, nasogastric tube feedings, and he started tolerating fluids. 6. Acute kidney injury. This is his baseline. Continue to monitor. 7. Atrial fibrillation. Rate controlled. He has had short run of ventricular tachycardia in the morning, about 6 beats. Cardiology department is following this patient. 8. Type 2 diabetes. This is better controlled. We will continue with the same dose of Lantus. 9. Suspected sleep apnea noted. Probably, he will need to get a sleep study as an outpatient. 10. Vitamin D deficiency. Continue with the same management. 11. Microcytic anemia. The folate level is low. I started already replacing the folic acid. CRITICAL CARE TIME: 35 minutes.
--- NOTE | 2016-11-22 14:07 | PROGRESS NOTE ---
DATE: 11/22/2016 PRESENT ILLNESS: The patient has Enterobacter and enterococcal abdominal wound infection and an Enterobacter pneumonia. The patient remains short of breath. I do not hear wheezing today. MEDICATIONS: This is day 5 of treatment with IV Levaquin and ampicillin. PHYSICAL EXAMINATION: Vital Signs: Temperature is 97.2 degrees, pulse 100, respirations 22, blood pressure 129/58. General: This is an ill-appearing, elderly male. He does seem short of breath at rest. Lungs: Clear to auscultation. Cardiovascular: The patient's heart rate is irregular. Abdomen: Distended. Extremities: His legs have bilateral edema. LAB AND X-RAY: The patient's CBC shows a white count of 9110, hemoglobin 8.7, and platelet count 221,000. Blood gases show a pH of 7.43, PO2 of 123 and a pCO2 of 43. The creatinine is 1.1. GFR is greater than 60. Lung scan shows low probability of pulmonary embolus. ASSESSMENT AND PLAN: I am going to continue with the patient's current antibiotics namely Levaquin and ampicillin for his pneumonia and abdominal wound infection. COMORBIDITIES: Include diabetes mellitus, being elderly, multiple abdominal procedures and obesity.
[2016-11-22] MEDS: LIPOSYN 20% 500 ML IV SCH (18:54)
[2016-11-22] MEDS: TPN ELECTROLYTES 20 ML, MAGNESIUM SULFATE 5 MEQ, POTASSIUM CHLORIDE 20 MEQ, M.V.I.-12 1... IV SCH ×8 (18:55)
[2016-11-23] MEDS: HUMULIN R SUBQ SCH ×7 (01:08→23:39)
[2016-11-23] MEDS: LOPRESSOR IV SCH ×6 (02:47→21:04)
[2016-11-23] MEDS: DUONEB (A & A) INH SCH ×6 (03:11→23:33)
[2016-11-23 04:50] LABS: ALLEN TEST YES; BE 4.1 mmoll (-3.0-3.0); BLOOD TYPE ARTERIAL; DRAW SITE R RADIAL; METHB 1.8 % (0.0-1.5); O2(CT) 16.8 mL/dL (15.0-23.0); PO2(98.6) 129 mmHg (60-100); SAMPLE BLOOD; SAO2 99.4 % (95.0-100.0); THB 12.3 g/dL (11.5-17.4); pH(98.6) 7.38 (7.35-7.45)
[2016-11-23 04:55] LABS: MODALITY VENTIMASK; PCO2(98.6) 51 mmHg (35-45)
[2016-11-23] MEDS: SODIUM CHLORIDE 0.9% INJ SCH (05:46)
[2016-11-23] MEDS: PROTONIX IV SCH (05:46)
[2016-11-23] MEDS: HEPARIN SUBQ SCH ×3 (05:46→21:04)
[2016-11-23] MEDS: AMPICILLIN 2 GM/NS 100 ML IV SCH ×4 (05:47→23:40)
--- NOTE | 2016-11-23 06:27 | PROGRESS NOTE ---
DATE: 11/23/2016 SUBJECTIVE: Patient had a good weekend as far as bowel movements are concerned. Reviewed notes from other physicians and my partner, no major issues reported. His confusion has gotten a little bit better. Again he has had multiple bowel movements. He was started on a full liquid diet but currently is receiving TPN, NG tube feeds and full liquids. OBJECTIVE: Vital Signs: Patient is currently afebrile. His vital signs have been stable. General: No acute distress. Cardiovascular: Regular rate and rhythm. Lungs: Grossly clear. Abdomen: Soft, less distended. Overall incision is healing with sutures in place. Bowel sounds auscultated. LABORATORIES: Reviewed. ASSESSMENT AND PLAN: An 86-year-old male status post exploratory laparotomy small bowel resection with fascial dehiscence x2. Postoperative state: At this time, patient seems to be doing okay. His bowels seem to be moving. We will check an abdominal film this morning to see the residual contrast load and make sure that his bowel movements do represent continuation of return of bowel function. If they do, we will consider removing NG tube and stopping tube feeds. Given his overall malnutrition, we will need to reassess his ability to take in enough calories and proteins by p.o., and we will have dietitian perform a calorie count before we stop his TPN. We will also start the patient on Ensure. We will continue to monitor the patient. I do want physical therapy to mobilize the patient.
--- NOTE | 2016-11-23 06:27 | PROGRESS NOTE ---
DATE: 11/23/2016 PRESENT ILLNESS: The patient has an Enterobacter pneumonia and an Enterobacter and E. coli abdominal wound infection. The patient remains dyspneic even at rest. MEDICATIONS: This is day 6 of treatment with Levaquin and ampicillin. PHYSICAL EXAMINATION: Vital Signs: Temperature is 97.5 degrees, pulse 95, respirations 20, blood pressure 140/54. Generally: This is an ill-appearing, elderly male who appears to be acutely short of breath at rest. Lungs: There were expiratory wheezes on the right side. The left side was clear. Cardiovascular: There is an irregular heart rate. There is bilateral edema. Abdomen: Is somewhat distended. I removed the binder. The patient's dressings were intact. LAB AND X-RAY: There is no new CBC or BMP today. There is also no new chest x-ray today. ASSESSMENT AND PLAN: The patient has pneumonia and an abdominal wound infection. My plan is to continue treatment with Levaquin and ampicillin. COMORBIDITIES: Include diabetes mellitus, being very elderly, multiple abdominal surgical procedures, and obesity.
[2016-11-23] MEDS ORDERED: CALMOSEPTINE OINTMENT TOP PRN (06:43)
[2016-11-23 08:44] LABS: MANUAL DIFF NEEDED? NO
[2016-11-23 08:56] LABS: BASO% 0.6 % (0.0-0.8); EOS# 0.35 X1000 (0.0-0.7); EOS% 3.6 % (0.0-10.0); HEMATOCRIT 29.2 % (42.0-52.0); HEMOGLOBIN 8.8 g/dL (14.0-18.0); IMM GRAN# 0.09 X1000 (0.0-0.04); IMM GRAN% 0.9 % (0.0-0.5); LYMPH# 1.11 X1000 (1.2-3.4); LYMPH% 11.5 % (20.5-51.1); MCH 30.7 PG (27-31); MCHC 30.1 g/dL (33-37); MCV 101.7 FL (81-99); MONO# 0.99 X1000 (0.11-0.59); MONO% 10.3 % (1.7-9.3); MPV 11.8 FL (7.4-10.4); NEUT% 73.1 % (42.2-75.2); PLT 201 X1000 (130-400); RBC 2.87 XMIL (4.7-6.1)
[2016-11-23 09:13] LABS: AGAP 11; BUN 30 mg/dL (8-22); CALCIUM 7.9 mg/dL (8.8-10.2); CHLORIDE 104 mmol/L (98-107); COSMO 293; POTASSIUM 4.6 mmol/L (3.5-5.1); SODIUM 142 mmol/L (136-145); TCO2 27 mmol/L (25-35)
--- NOTE | 2016-11-23 09:27 | Diag Imaging Result Document ---
PROCEDURE NAME: ABDOMEN FLAT/UPRIGHT - 11/23/2016 PORTABLE FLAT AND UPRIGHT ABDOMEN: FINDINGS: There is barium throughout the colon. This has not moved appreciably since 11/20/2016. There is somewhat less bowel gas otherwise. IMPRESSION: Ileus.
[2016-11-23] MEDS: LANTUS SUBQ SCH (09:41)
[2016-11-23] MEDS: FOLIC ACID PO SCH (09:47)
[2016-11-23] MEDS: LEVAQUIN 500 MG/D5W 100 ML IV SCH (09:47)
[2016-11-23 11:22] LABS: ALBUMIN 2.8 g/dL (3.5-5.0); ALKALINE PHOSPHATASE 78 U/L (32-122); DIRECT BILIRUBIN < 0.20 mg/dL (0.00-0.20); GOT 16 U/L (10-34); GPT 30 U/L (10-44); MAGNESIUM 2.1 mg/dL (1.5-2.7); TOTAL BILIRUBIN 0.26 mg/dL (0.20-1.00); TOTAL PROTEIN 6.3 g/dL (6.3-8.3)
[2016-11-23 11:45] LABS: PREALBUMIN 14.8 mg/dL (20-40)
--- NOTE | 2016-11-23 17:05 | PROGRESS NOTE ---
DATE: 11/23/2016 SUBJECTIVE: The patient is resting comfortably in bed. He has no complaints. No acute events noted overnight. He appears to be tolerating a full liquid diet plus TPN. OBJECTIVE: Vital Signs: Temperature 98 degrees, blood pressure 104/55, heart rate 92, respirations 21, O2 saturations 100% on 5 L nasal cannula. General: This is a morbidly obese male sitting up in bed in no acute distress. Head: Normocephalic, atraumatic. Heart: S1, S2. Normal. Lungs: Clear to auscultation bilaterally. No crackles. No rales. Abdomen: Positive bowel sounds. Soft, nontender, nondistended. Extremities: No edema. No cyanosis. No calf tenderness. Neurologic: The patient is awake and alert. LABS: White blood cell count 9.6, hemoglobin 8.8, hematocrit 29, platelets 201,000. Sodium 142, potassium 4.6, chloride 104, CO2 27, BUN 30, creatinine 1, glucose 167, phosphorus 2.7, magnesium 2.1. ASSESSMENT AND PLAN: 1. Bowel obstruction status post terminal ileum resection and end-to-end anastomosis. Management as per the general surgeon. 2. Pneumonia secondary to Enterobacter. Continue on ampicillin as directed by Dr. Hernandez. 3. Enterobacter and enterococcal surgical wound infection. Continue with the current IV antibiotic regimen. 4. Protein calorie malnutrition. The patient is currently on a full liquid diet and TPN. The dietitian is following. 5. Diabetes mellitus type 2. Continue on sliding scale insulin. 6. Atrial fibrillation. Will start the patient on p.o. Cardizem. 7. Morbid obesity. Aware. 8. Deep vein thrombosis prophylaxis. Continue on heparin. 9. Physical therapy has been consulted.
[2016-11-23] MEDS: TEARISOL OPH SOLUTION BOTH EYES PRN (17:12)
[2016-11-23] MEDS: LIPOSYN 20% 500 ML IV SCH (17:57)
[2016-11-23] MEDS: TPN ELECTROLYTES 20 ML, MAGNESIUM SULFATE 5 MEQ, POTASSIUM CHLORIDE 20 MEQ, M.V.I.-12 1... IV SCH ×8 (18:04)
[2016-11-23] MEDS: CARDIZEM 100 MG/NS 100 ML IV SCH (19:50)
[2016-11-23] MEDS: CARDIZEM PO SCH (21:04)
[2016-11-24] MEDS: LOPRESSOR IV SCH ×6 (01:46→22:29)
[2016-11-24] MEDS: DUONEB (A & A) INH SCH ×6 (03:46→23:28)
[2016-11-24] MEDS: HUMULIN R SUBQ SCH ×5 (03:58→20:05)
[2016-11-24 04:58] LABS: ALLEN TEST YES; BE 5.6 mmoll (-3.0-3.0); BLOOD TYPE ARTERIAL; DRAW SITE R RADIAL; METHB 1.9 % (0.0-1.5); O2(CT) 13.8 mL/dL (15.0-23.0); PCO2(98.6) 49 mmHg (35-45); PO2(98.6) 129 mmHg (60-100); SAMPLE BLOOD; SAO2 99.3 % (95.0-100.0); THB 10.1 g/dL (11.5-17.4); pH(98.6) 7.41 (7.35-7.45)
[2016-11-24 04:59] LABS: MANUAL DIFF NEEDED? NO
[2016-11-24 04:59] LABS: MODALITY BI PAP
[2016-11-24 05:05] LABS: BASO% 0.5 % (0.0-0.8); EOS# 0.46 X1000 (0.0-0.7); EOS% 4.2 % (0.0-10.0); HEMATOCRIT 32.1 % (42.0-52.0); HEMOGLOBIN 9.6 g/dL (14.0-18.0); IMM GRAN# 0.11 X1000 (0.0-0.04); MCH 30.8 PG (27-31); MCHC 29.9 g/dL (33-37); MCV 102.9 FL (81-99); MONO# 1.07 X1000 (0.11-0.59); MONO% 9.7 % (1.7-9.3); MPV 11.1 FL (7.4-10.4); NEUT% 75.6 % (42.2-75.2); PLT 213 X1000 (130-400); RBC 3.12 XMIL (4.7-6.1)
[2016-11-24] MEDS: PROTONIX IV SCH (05:18)
[2016-11-24] MEDS: AMPICILLIN 2 GM/NS 100 ML IV SCH ×3 (05:18→18:11)
[2016-11-24 05:19] LABS: AGAP 9; BUN 29 mg/dL (8-22); CALCIUM 8.3 mg/dL (8.8-10.2); CHLORIDE 104 mmol/L (98-107); COSMO 292; MAGNESIUM 2.1 mg/dL (1.5-2.7); POTASSIUM 4.8 mmol/L (3.5-5.1); SODIUM 141 mmol/L (136-145); TCO2 28 mmol/L (25-35)
[2016-11-24] MEDS: HEPARIN SUBQ SCH ×3 (05:19→20:04)
[2016-11-24] MEDS: CARDIZEM PO SCH ×3 (05:19→20:04)
--- NOTE | 2016-11-24 08:03 | Diag Imaging Result Document ---
PROCEDURE NAME: CHEST-PORTABLE - 11/24/2016 SINGLE FRONTAL RADIOGRAPH OF THE CHEST: COMPARISON: 11/20/2016. FINDINGS: Right PICC line is in stable position. Inspiration is suboptimal. Inspiration is probably slightly prominent and there are probably bibasilar small infiltrates most consistent with mild edema and pulmonary venous congestion. There may also be a component of venous crowding due to poor inspiration. These findings are essentially stable. No new consolidations identified. Cardiac silhouette is stable. IMPRESSION: Stable chest.
--- NOTE | 2016-11-24 09:53 | PROGRESS NOTE ---
DATE: 11/24/2016 SUBJECTIVE: Some confusion overnight. He did stay awake all through the night. He is tolerating his NG tube being out and his tube feeds. We currently have a calorie count underway. OBJECTIVE: Vital Signs: Patient is currently afebrile. His vital signs have been stable. General Examination: No acute distress but mildly confused. Cardiovascular: Regular rate and rhythm. Lungs: Grossly clear. Abdomen: Soft, nondistended. Overall, incision is healing. Less erythema noted. Bowel sounds auscultated. He did have a bowel movement. Laboratory: Reviewed. His white blood cell count is 11, hematocrit is 32, platelet count is 213,000. ASSESSMENT AND PLAN: An 86-year-old, male status post exploratory laparotomy with small- bowel resection and fascial dehiscence x2. Postoperative state. At this time, the patient seems to be doing okay. His bowels are moving. We removed his nasogastric tube and he is purely on oral intake. We will need to continue with calorie count to make sure that he is getting enough calories to support being off total parenteral nutrition. Otherwise, once he is able do that, we could consider transfer to a rehab facility.
[2016-11-24] MEDS ORDERED: INSULIN PEN NEEDLES ONE (10:11)
[2016-11-24] MEDS: LANTUS SUBQ SCH (10:13)
[2016-11-24] MEDS: LEVAQUIN 500 MG/D5W 100 ML IV SCH (10:13)
[2016-11-24] MEDS: FOLIC ACID PO SCH (10:14)
--- NOTE | 2016-11-24 10:45 | PROGRESS NOTE ---
DATE: 11/24/2016 PRESENT ILLNESS: The patient has an Enterobacter and E. coli abdominal wound infection and an Enterobacter pneumonia. Today the patient is somewhat lethargic. He had stayed up most of the night. MEDICATIONS: This is day 7 of treatment with both Levaquin and ampicillin. PHYSICAL EXAMINATION: Vital Signs: Temperature is 98.4 degrees, pulse 78, respirations 16, blood pressure 177/76. General: This is a lethargic, elderly male. He is in no acute distress. Lungs: Clear to auscultation. Cardiovascular: Irregular heart rate. Abdomen: There is a large binder in place. Neurologic: As mentioned above, the patient is lethargic. He had stayed up most of the night. He was arousable and did carry on a coherent conversation when I did talk to him. LAB AND X-RAY: The patient's CBC shows a white count of 11,050, hemoglobin 9.6, and platelet count 213,000. Creatinine is 1.1. GFR is greater than 60. Arterial blood gases show a pH of 7.41, PO2 of 129, and a pCO2 of 49. There is no new chest x-ray today. ASSESSMENT AND PLAN: Patient has pneumonia and an abdominal wound infection. I am going to continue with his current antibiotics. Also, I have ordered a portable chest x-ray for today. The patient's comorbidities include diabetes mellitus, being elderly, multiple abdominal surgical procedures, and obesity.
[2016-11-24] MEDS ORDERED: LASIX IV ONE (13:00)
[2016-11-24 14:26] LABS: AGAP 12; BUN 30 mg/dL (8-22); CALCIUM 8.1 mg/dL (8.8-10.2); CHLORIDE 100 mmol/L (98-107); COSMO 286; GOT 13 U/L (10-34); MAGNESIUM 2.1 mg/dL (1.5-2.7); POTASSIUM 4.7 mmol/L (3.5-5.1); PREALBUMIN 15.5 mg/dL (20-40); SODIUM 138 mmol/L (136-145); TCO2 26 mmol/L (25-35); TRIGLYCERIDES 128 mg/dL (39-160)
--- NOTE | 2016-11-24 15:51 | PROGRESS NOTE ---
DATE: 11/24/2016 SUBJECTIVE: The patient is sitting up in a chair. He does have swelling in his extremities. OBJECTIVE: Vital Signs: Temperature 98.7 degrees, blood pressure 142/74, heart rate 62, respirations 18, O2 saturation 96% on 5 L nasal cannula. General: This is a morbidly obese male, sitting up in a chair, in no acute distress. Head: Normocephalic, atraumatic. Heart: S1, S2. Normal. Regular rate and rhythm. Lungs: Coarse breath sounds bilaterally. No crackles. No rales. Abdomen: Obese soft, nontender, nondistended. Extremities: 3+ edema in the lower extremities. Neurologic: The patient is alert and oriented x3. LABS: White blood cell count 11, hemoglobin 9.6, hematocrit 32, platelets 213,000. Sodium 138, potassium 4.7, chloride 100, CO2 26, BUN 30, creatinine 1, glucose 175, calcium 8.1, phosphorus 3.3, magnesium 2.1. ASSESSMENT AND PLAN: 1. Bowel obstruction status post terminal ileum resection and end-to-end anastomosis. Management as per the general surgeon. 2. Pneumonia secondary to Enterobacter. Continue on ampicillin. 3. Enterobacter and enterococcal surgical wound infection. Continue with IV antibiotic therapy. 4. Protein calorie malnutrition. Management as per the general surgeon. 5. Diabetes mellitus type 2. Continue on sliding scale insulin. 6. Pulmonary edema. We will start the patient on IV Lasix. 7. Atrial fibrillation. The patient is rate controlled. Continue on Cardizem. 8. Morbid obesity. Aware. 9. Deep vein thrombosis prophylaxis. Continue on heparin. 10. Continue with physical therapy. 11. Disposition. The patient's son states that they would like to take the patient home and he will continue with physical therapy as outpatient.
[2016-11-25] MEDS: HUMULIN R SUBQ SCH ×7 (00:05→23:36)
[2016-11-25] MEDS: AMPICILLIN 2 GM/NS 100 ML IV SCH ×5 (00:05→23:57)
[2016-11-25] MEDS: LOPRESSOR IV SCH ×6 (01:38→21:20)
[2016-11-25] MEDS: DUONEB (A & A) INH SCH ×6 (02:55→23:15)
[2016-11-25 04:14] LABS: ALLEN TEST YES; BE 6.7 mmoll (-3.0-3.0); BLOOD TYPE ARTERIAL; DRAW SITE R RADIAL; O2(CT) 13.8 mL/dL (15.0-23.0); PCO2(98.6) 48 mmHg (35-45); PO2(98.6) 86 mmHg (60-100); SAMPLE BLOOD; SAO2 98.4 % (95.0-100.0); THB 10.3 g/dL (11.5-17.4); pH(98.6) 7.43 (7.35-7.45)
[2016-11-25 04:15] LABS: MODALITY BI PAP
[2016-11-25] MEDS: PROTONIX IV SCH (05:00)
[2016-11-25] MEDS: HEPARIN SUBQ SCH ×3 (05:00→20:44)
[2016-11-25] MEDS: CARDIZEM PO SCH ×3 (05:01→20:44)
[2016-11-25 05:32] LABS: MANUAL DIFF NEEDED? NO
[2016-11-25 05:39] LABS: BASO% 0.4 % (0.0-0.8); EOS# 0.49 X1000 (0.0-0.7); EOS% 4.8 % (0.0-10.0); HEMATOCRIT 28.7 % (42.0-52.0); HEMOGLOBIN 8.6 g/dL (14.0-18.0); IMM GRAN# 0.09 X1000 (0.0-0.04); IMM GRAN% 0.9 % (0.0-0.5); LYMPH# 1.38 X1000 (1.2-3.4); LYMPH% 13.5 % (20.5-51.1); MCH 30.5 PG (27-31); MCV 101.8 FL (81-99); MONO# 1.02 X1000 (0.11-0.59); MPV 11.1 FL (7.4-10.4); NEUT% 70.4 % (42.2-75.2); PLT 198 X1000 (130-400); RBC 2.82 XMIL (4.7-6.1)
[2016-11-25 06:28] LABS: CALCIUM 8.3 mg/dL (8.8-10.2); POTASSIUM 4.3 mmol/L (3.5-5.1)
--- NOTE | 2016-11-25 06:52 | PROGRESS NOTE ---
DATE: 11/25/2016 SUBJECTIVE: Patient more alert this morning. Tolerating a diet. His calorie counts have been reviewed. His TPN has been stopped. He still having bowel movements. Again he is more alert. OBJECTIVE: Vital Signs: Patient is currently afebrile. His vital signs are stable. General: More alert than previous days. Cardiovascular: Regular rate and rhythm. Lungs: Grossly clear. Abdomen: Soft, less distended. Bowel sounds auscultated. Incision is healing. LABORATORY: Reviewed his white blood cell counts within normal limits. ASSESSMENT AND PLAN: An 86-year-old male status post exploratory laparotomy with small- bowel resection and fascial dehiscence x2. Postoperative state: At this time, the patient seems to be doing well. He is off of IV nutrition, tolerating full liquids. We will put him on a regular diet this morning and see how he does. Encouraged p.o. intake with calories and proteins. I suspect that if he is able to tolerate this and continue his current state, we could potentially discharge him from the hospital this week. This was all discussed with the patient and his sons in the room. All questions were answered.
--- NOTE | 2016-11-25 07:36 | Diag Imaging Result Document ---
PROCEDURE NAME: CHEST-1 VIEW - 11/25/2016 PORTABLE CHEST X-RAY, 11/25/2016: COMPARISON: 11/24/2016. FINDINGS: Stable right PICC line. There is worsening central infiltrate bilaterally, compatible with pulmonary edema. There is worsening bibasilar atelectasis. Stable cardiomegaly and surgical changes to the heart. IMPRESSION: Worsening from prior.
--- NOTE | 2016-11-25 07:40 | PROGRESS NOTE ---
DATE: 11/25/2016 PRESENT ILLNESS: The patient has an Enterobacter pneumonia, and an Enterobacter and enterococcal abdominal wound infection. MEDICATIONS: This is day 8 of treatment with Levaquin and ampicillin. PHYSICAL EXAMINATION: Vital Signs: Temperature is 97.7 degrees, pulse 81, respirations 20, blood pressure 133/60. Generally: The patient looks much better than he did yesterday. He is talkative. His NG tube is out. Lungs: Clear to auscultation. Cardiovascular: Regular heart rate. Abdomen: Patient has his binder in place. Neurologic: The patient is alert. He can move his extremities. He can carry on a conversation and he is coherent. LAB AND X-RAY: CBC today showed a white count of 10,210, hemoglobin 8.6, and platelet count 198,000. Patient's blood gases show a pH of 7.43, a PO2 of 86, and a pCO2 of 48. The patient's creatinine is 1.2. The GFR is 58. ASSESSMENT AND PLAN: Patient has pneumonia and abdominal wound infection. I plan to continue his current antibiotics. If the patient does well with oral feedings, I will most likely change his medications from being intravenous to oral as well. COMORBIDITIES: Include diabetes mellitus, being elderly, multiple abdominal procedures, and obesity.
[2016-11-25] MEDS: LEVAQUIN 500 MG/D5W 100 ML IV SCH (09:03)
[2016-11-25] MEDS: LASIX IV SCH (09:03)
[2016-11-25] MEDS: FOLIC ACID PO SCH (09:03)
--- NOTE | 2016-11-25 14:30 | PROGRESS NOTE ---
DATE: 11/25/2016 SUBJECTIVE: Mr. Tucker is resting comfortably in bed. He states that he feels a lot better today. He is off of tube feeds. OBJECTIVE: Vital Signs: Temperature 98.7 degrees, blood pressure 130/65, heart rate 81, respirations 15, O2 saturations 97% on 5 L nasal cannula. General: This is a morbidly obese male, lying in bed, in no acute distress. Head: Normocephalic, atraumatic. Heart: S1, S2. Normal. Regular rate and rhythm. Lungs: Clear to auscultation bilaterally. No crackles. No rales. Abdomen: Positive bowel sounds. Soft, nontender, nondistended. Extremities: 3+ edema. Neurologic: The patient is alert and oriented x3. LABS: White blood cell count 10, hemoglobin 8.6, hematocrit 28, platelets 198, 000. Creatinine 1.2, BUN 33, potassium 4.3. ASSESSMENT AND PLAN: 1. Small bowel obstruction status post resection. Patient appears to be improving slowly. Further management as per the general surgeon. 2. Pneumonia secondary to Enterobacter. Continue on ampicillin. 3. Enterobacter and enterococcus faecalis wound infection. Continue on ampicillin. 4. Morbid obesity. Aware. 5. Volume overload. Continue on Lasix daily. 6. Atrial fibrillation. The patient is currently rate controlled. Continue on Cardizem. 7. Diabetes mellitus type 2. Continue on sliding scale insulin. 8. Vitamin D deficiency. Continue on vitamin D replacement. 9. Diabetic neuropathy. Will start the patient on gabapentin. 10. Continue with physical therapy. 11. Disposition. Once cleared by the general surgeon the patient will be discharged home with home health. [facility]
[2016-11-25] MEDS ORDERED: BENADRYL PO ONE (20:12)
[2016-11-25] MEDS: NEURONTIN PO SCH (20:44)
[2016-11-26] MEDS: LOPRESSOR ONE ×2 (03:07→03:08)
[2016-11-26] MEDS: HUMULIN R SUBQ SCH ×5 (03:08→20:34)
[2016-11-26] MEDS: MORPHINE IV PRN (03:09)
[2016-11-26] MEDS: LOPRESSOR IV SCH ×6 (03:09→21:53)
[2016-11-26] MEDS: DUONEB (A & A) INH SCH ×6 (04:35→23:30)
[2016-11-26] MEDS: AMPICILLIN 2 GM/NS 100 ML IV SCH ×3 (05:22→18:37)
[2016-11-26] MEDS: CARDIZEM PO SCH ×3 (05:22→20:00)
[2016-11-26] MEDS: PROTONIX IV SCH (05:22)
[2016-11-26] MEDS: HEPARIN SUBQ SCH ×3 (05:22→19:59)
[2016-11-26 05:48] LABS: CALCIUM 8.1 mg/dL (8.8-10.2); MAGNESIUM 1.8 mg/dL (1.5-2.7); POTASSIUM 4.4 mmol/L (3.5-5.1)
--- NOTE | 2016-11-26 06:42 | PROGRESS NOTE ---
DATE: 11/26/2016 PRESENT ILLNESS: The patient has an Enterobacter pneumonia and an Enterobacter and enterococcal abdominal wound infection. MEDICATIONS: The patient is on day 9 of treatment with Levaquin and ampicillin. PHYSICAL EXAMINATION: Vital Signs: Temperature is 98 degrees, pulse 92, respirations 16, and blood pressure 139/72. General: This is an ill-appearing elderly male who is in no acute distress. Lungs: Clear to auscultation. Cardiovascular: Heart rate is irregular. Abdomen: Soft and non tender. Binder is in place. Neurologic: Patient is awake. He is coherent when he talks. He can move his extremities. LAB AND X-RAY: There is no new x-ray. The lab for today shows a CBC with a white count of 10,210, hemoglobin 8.6 and platelet count 198,000. Blood gases show a pH of 7.43, p02 of 86 and pCO2 of 48. Creatinine is 1.2. The GFR is 58. ASSESSMENT AND PLAN: Patient has pneumonia and abdominal wound infection. I am going to change his antibiotics to p.o. Levaquin 500 mg daily and amoxicillin 500 mg every 8 hours for another week. The patient will have follow up with Dr. Toney. The patient's comorbidities include diabetes mellitus, being elderly, multiple abdominal procedures and obesity. I will be seeing the patient back in the office also to see how he is doing and also to repeat his chest x-ray to make sure the pneumonia is clearing. I have written a prescription for the patient's antibiotics and I have put it in his chart.
--- NOTE | 2016-11-26 06:49 | PROGRESS NOTE ---
DATE: 11/26/2016 SUBJECTIVE: The patient doing well and tolerating a diet. She is having bowel movements. She is more alert. OBJECTIVE: Vital Signs: Patient is currently afebrile. His vital signs are stable. General: He is more alert than previous days. Cardiovascular: Regular rate and rhythm. Lungs: Grossly clear. Abdomen: Soft and less distended. Bowel sounds auscultated. Incision is healing. ASSESSMENT AND PLAN: An 86-year-old male status post exploratory laparotomy with small- bowel resection and fascial dehiscence x2. Postoperative state. At this time, patient is doing well. I suspect he could be transferred to his house today. I will need to see the patient back in my office in 1-2 weeks preferably 1 week.
--- NOTE | 2016-11-26 08:21 | PROGRESS NOTE ---
DATE: 11/26/2016 ADDENDUM: LABORATORY AND X-RAY: I do not see any new x-ray on the patient today. Laboratory shows a CBC with a white count of 10,210, hemoglobin 8.6, and platelet count 198,000. Blood gases show a pH of 7.43, a PO2 of 86, and a pCO2 of 48. Creatinine is 1.2. GFR is 58. I have written for the patient as an outpatient to take 7 more days of Levaquin 500 mg daily and amoxicillin 500 mg every 8 hours. Both of these are PO for 7 more days. I have requested that the patient see me in the office 2 weeks after discharge at which time I will examine him and also repeat the x-ray to make sure his pneumonia is clearing. MTDJuju
[2016-11-26] MEDS: LASIX IV SCH (08:33)
[2016-11-26] MEDS: FOLIC ACID PO SCH (08:34)
[2016-11-26] MEDS: LEVAQUIN 500 MG/D5W 100 ML IV SCH (08:34)
[2016-11-26] MEDS: VITAMIN D PO SCH (08:34)
--- NOTE | 2016-11-26 14:25 | PROGRESS NOTE ---
DATE: 11/26/2016 SUBJECTIVE: The patient is sitting up in bed eating breakfast. He states that he feels a lot better and stronger today. OBJECTIVE: Vital Signs: Temperature 98.5 degrees, blood pressure 135/55, heart rate 86, respirations 18, O2 saturations 98% on 3 L nasal cannula. General: This is an elderly male, lying in bed in no acute distress. Head: Normocephalic, atraumatic. Heart: S1, S2. Normal. Regular rate and rhythm. Lungs: Clear to auscultation bilaterally. No crackles. No rales. Abdomen: Positive bowel sounds. Soft, nontender, nondistended. Extremities: There is 2+ edema. Neurologic: The patient is alert and oriented x3. LABS: Sodium 141, potassium 4.4, chloride 101, CO2 29, BUN 33, creatinine 1.2, glucose 114, phosphorus 4.2, magnesium 1.8. ASSESSMENT AND PLAN: 1. Bowel obstruction status post terminal ileum resection and end-to-end anastomosis. Stable. 2. Pneumonia secondary to Enterobacter. The patient has been transitioned to oral antibiotic therapy in preparation for discharge. 3. Enterobacter and Enterococcus faecalis wound infection. Continue on antibiotic therapy. 4. Volume overload. Improved. Continue on Lasix. 5. Morbid obesity. Aware. 6. Diabetes mellitus type 2. Continue on sliding scale insulin. 7. Diabetic neuropathy. Continue on gabapentin. 8. Continue with physical therapy. DISPOSITION: We will plan to discharge the patient home with home health once cleared by the general surgeon.
[2016-11-26] MEDS ORDERED: RESTORIL PO PRN (19:43)
[2016-11-26] MEDS: NEURONTIN PO SCH (20:00)
[2016-11-27] MEDS: HUMULIN R SUBQ SCH ×6 (00:44→22:09)
[2016-11-27] MEDS: LOPRESSOR IV SCH ×6 (02:02→21:38)
[2016-11-27] MEDS: AMPICILLIN 2 GM/NS 100 ML IV SCH ×4 (02:03→17:12)
[2016-11-27] MEDS: DUONEB (A & A) INH SCH ×5 (02:57→23:25)
[2016-11-27] MEDS: HEPARIN SUBQ SCH ×3 (05:04→21:38)
[2016-11-27] MEDS: PROTONIX IV SCH (05:04)
[2016-11-27] MEDS: CARDIZEM PO SCH ×3 (05:05→21:40)
[2016-11-27 05:42] LABS: CALCIUM 8.2 mg/dL (8.8-10.2); POTASSIUM 5.3 mmol/L (3.5-5.1)
--- NOTE | 2016-11-27 08:17 | PROGRESS NOTE ---
DATE: 11/27/2016 SUBJECTIVE: The patient is doing well. No major issues. OBJECTIVE: Vital Signs: The patient is afebrile. His vital signs have been stable. General: No acute distress. Cardiovascular: Regular rate and rhythm. Lungs: The patient currently on BiPAP. Abdomen soft, less distended. Binder in place. Bowel sounds auscultated. Incision is healing. ASSESSMENT AND PLAN: An 86-year-old, male, status post exploratory laparotomy with small bowel resection and fascial dehiscence x2, postoperative state. I think the patient can be discharged home with home health and home rehab. He is stable from a general surgery point of view. I need him to see me in the office in 1 week.
--- NOTE | 2016-11-27 08:43 | PROGRESS NOTE ---
DATE: 11/27/2016 PRESENT ILLNESS: The patient has an Enterobacter pneumonia and an Enterobacter and enterococcal abdominal wound infection. MEDICATIONS: The patient has been receiving Levaquin and ampicillin intravenously for the past 10 days. PHYSICAL EXAMINATION: Vital Signs: Temperature is 96.6, pulse 70, respirations 20, blood pressure 135/98. General: This is an ill-appearing, elderly male. He is wearing a BiPAP mask because his O2 saturation decreased last night. He took a sleeping pill and he has been sleeping throughout the night. Lungs: Clear to auscultation. Cardiovascular: Heart rate is irregular. Abdomen: Soft. The incision is intact. There is no tenderness. Neuro: The patient is sleeping. As mentioned above, he had a sleeping pill last night. LAB AND X-RAY: There is no new x-ray and the only new lab is a creatinine of 1.3 with a GFR of 53. ASSESSMENT AND PLAN: My plan would be to continue his current antibiotics for his pneumonia and abdominal wound infection. COMORBIDITIES: Include diabetes mellitus, being elderly, multiple abdominal surgical procedures and obesity.
[2016-11-27] MEDS: FOLIC ACID PO SCH (09:40)
[2016-11-27] MEDS: LEVAQUIN 500 MG/D5W 100 ML IV SCH (09:40)
--- NOTE | 2016-11-27 10:34 | Diag Imaging Result Document ---
PROCEDURE NAME: CHEST-PORTABLE - 11/27/2016 SINGLE FRONTAL RADIOGRAPH OF THE CHEST: COMPARISON: 11/25/2016. FINDINGS: Right PICC line is in stable position. Central and bibasilar infiltrates are unchanged. This likely represents pulmonary edema. No new consolidations are identified. Cardiac silhouette is stable. IMPRESSION: Stable chest.
[2016-11-27 11:07] LABS: ALLEN TEST YES; BE 6.4 mmoll (-3.0-3.0); BLOOD TYPE ARTERIAL; METHB 1.9 % (0.0-1.5); O2(CT) 12.6 mL/dL (15.0-23.0); PCO2(98.6) 49 mmHg (35-45); PO2(98.6) 79 mmHg (60-100); SAMPLE BLOOD; SAO2 98.4 % (95.0-100.0); THB 9.4 g/dL (11.5-17.4); pH(98.6) 7.42 (7.35-7.45)
[2016-11-27 11:10] LABS: DRAW SITE R RADIAL; MODALITY BI PAP
[2016-11-27] MEDS: DULCOLAX PR PRN (12:29)
[2016-11-27] MEDS: LASIX IV SCH (13:35)
--- NOTE | 2016-11-27 13:51 | PROGRESS NOTE ---
DATE: 11/27/2016 SUBJECTIVE: The patient was noted to have some respiratory distress overnight and was placed on a Ventimask. He was then later placed on BiPAP. This morning the patient was noted to be sleepy and lethargic. Of note, he did receive Restoril last night for the 1st time. OBJECTIVE: Vital Signs: Temperature 97 degrees, blood pressure 115/59, heart rate 98, respirations 20, O2 saturation 98% on 3 L nasal cannula. General: This is a morbidly obese, elderly male, lying in bed, in no acute distress. Head: Normocephalic, atraumatic. Heart: S1, S2. Normal. Regular rate and rhythm. Lungs: Coarse breath sounds. No crackles. No rales. Abdomen: Positive bowel sounds. Soft, nontender, nondistended. Extremities: 2+ edema. Neurologic: The patient is lethargic this morning. LAB: ABG pH of 7.42, pCO2 49, PO2 79, bicarb 29, sodium 142, potassium 5.3, chloride 101, CO2 30, BUN 37, creatinine 1.3, glucose 148, phosphorus 5.5. Chest x-ray shows pulmonary edema. ASSESSMENT AND PLAN: 1. Volume overload with pulmonary edema. We will continue on IV Lasix and attempt to diurese the patient a little bit more. 2. Bowel obstruction status post terminal ileum resection and end-to-end anastomosis. Stable. 3. Pneumonia secondary to Enterobacter. Continue on antibiotic therapy. 4. Enterobacter and Enterococcus faecalis wound infection. Continue on the current antibiotic regimen. The patient will go home on oral antibiotics once medically stable. 5. Diabetes mellitus type 2. Continue on sliding scale insulin. 6. Diabetic neuropathy. Aware. We will hold the gabapentin due to the patient' s lethargy today. 7. Continue with physical therapy. 8. Disposition. The patient had an episode of respiratory distress last night so we will hold the discharge for today. We will re-evaluate the patient in the morning. The patient will most likely require home oxygen. [facility]
[2016-11-27] MEDS ORDERED: A & D OINTMENT TOP PRN (15:32)
--- NOTE | 2016-11-27 21:40 | Diag Imaging Result Document ---
PROCEDURE NAME: CT THORAX W/O CONTRAST - 11/27/2016 CT OF THE CHEST: A CT dose reduction protocol was used. COMPARISON: Chest x-ray earlier 11/27/2016. FINDINGS: There are moderate bilateral pleural effusions right greater than left. There is cardiomegaly. 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 There is a right PICC line in good position. There is diffuse bilateral interstitial, ground-glass opacity with thickened interlobular septae compatible with interstitial pulmonary edema. Advanced degenerative changes of the thoracic spine. No definite acute bony lesions. IMPRESSION: 1. Cardiomegaly. 2. Interstitial pulmonary edema. 3. Bilateral pleural effusions. [facility]
[2016-11-28] MEDS: LASIX IV SCH ×2 (00:25→12:22)
[2016-11-28] MEDS: AMPICILLIN 2 GM/NS 100 ML IV SCH ×4 (00:25→17:30)
[2016-11-28] MEDS: LOPRESSOR IV SCH ×5 (03:27→21:04)
[2016-11-28 03:41] LABS: ALLEN TEST YES; BE 8.2 mmoll (-3.0-3.0); BLOOD TYPE ARTERIAL; DRAW SITE R RADIAL; METHB 2.2 % (0.0-1.5); O2(CT) 12.2 mL/dL (15.0-23.0); PO2(98.6) 76 mmHg (60-100); SAMPLE BLOOD; SAO2 98.1 % (95.0-100.0); THB 9.2 g/dL (11.5-17.4); pH(98.6) 7.35 (7.35-7.45)
[2016-11-28 03:47] LABS: MODALITY BI PAP; PCO2(98.6) 64 mmHg (35-45)
[2016-11-28] MEDS: DUONEB (A & A) INH SCH ×6 (03:55→23:41)
[2016-11-28] MEDS: CARDIZEM PO SCH ×3 (05:00→21:05)
[2016-11-28] MEDS: HEPARIN SUBQ SCH ×3 (05:00→21:04)
[2016-11-28] MEDS: PROTONIX IV SCH (05:08)
[2016-11-28 06:20] LABS: CALCIUM 9.1 mg/dL (8.8-10.2); MAGNESIUM 1.9 mg/dL (1.5-2.7); POTASSIUM 4.4 mmol/L (3.5-5.1)
[2016-11-28] MEDS: HUMULIN R SUBQ SCH ×4 (06:24→21:04)
[2016-11-28 06:44] LABS: MANUAL DIFF NEEDED? NO
[2016-11-28 06:57] LABS: BASO% 0.2 % (0.0-0.8); EOS# 0.13 X1000 (0.0-0.7); EOS% 1.4 % (0.0-10.0); HEMATOCRIT 30.8 % (42.0-52.0); HEMOGLOBIN 9.2 g/dL (14.0-18.0); IMM GRAN# 0.06 X1000 (0.0-0.04); IMM GRAN% 0.7 % (0.0-0.5); LYMPH# 0.99 X1000 (1.2-3.4); MCH 30.9 PG (27-31); MCHC 29.9 g/dL (33-37); MCV 103.4 FL (81-99); MONO# 0.95 X1000 (0.11-0.59); MONO% 10.5 % (1.7-9.3); MPV 11.1 FL (7.4-10.4); NEUT% 76.2 % (42.2-75.2); PLT 196 X1000 (130-400); RBC 2.98 XMIL (4.7-6.1)
[2016-11-28] MEDS: FOLIC ACID PO SCH (08:49)
[2016-11-28] MEDS: LEVAQUIN 500 MG/D5W 100 ML IV SCH (08:49)
[2016-11-28] MEDS: ALBUMIN 25% IV SCH (08:49)
--- NOTE | 2016-11-28 10:50 | Diag Imaging Result Document ---
PROCEDURE NAME: CHEST-PORTABLE - 11/28/2016 PORTABLE CHEST X-RAY: COMPARISON: 11/27/2016. FINDINGS: Stable right PICC line. Stable CABG changes and cardiomegaly. Stable diffuse bilateral infiltrates compatible with pulmonary edema. Stable pleural effusions. IMPRESSION: No change from prior.
[2016-11-28] MEDS ORDERED: DULCOLAX PR ONE (11:57)
--- NOTE | 2016-11-28 12:47 | PROGRESS NOTE ---
DATE: 11/28/2016 SUBJECTIVE]: The patient is awake and alert. He is currently on a Ventimask. He has no complaints this morning. OBJECTIVE: Vital Signs: Temperature 96.1 degrees, blood pressure 119/50, heart rate 79, respirations 18, O2 saturation 97% on the Venturi mask. General: This is a chronically ill- appearing, elderly male, lying in bed, in no acute distress. HEENT: Head normocephalic, atraumatic. Heart: S1, S2. Normal. Regular rate and rhythm. Lungs: Coarse breath sounds bilaterally. No crackles. Abdomen: Positive bowel sounds. Soft, nontender, nondistended. Extremities: With 2 to 3+ edema. No cyanosis. No calf tenderness. Neurologic : The patient is alert and oriented x3. LABORATORY DATA: White blood cell count 9, hemoglobin 9.2, hematocrit 30, platelets 196,000. ABG pH of 7.34, pCO2 64, PO2 76, bicarbonate 31, sodium 145, potassium 4.4, chloride 102. CO2 32, BUN 33, creatinine 1.2, glucose 140, calcium 9.1, magnesium 1.9. Phosphorus 4.2. ASSESSMENT AND PLAN: 1. Volume overload with pulmonary edema. Continue on scheduled Lasix. The patient is diuresing well. We will repeat a chest x-ray tomorrow. 2. Status post bowel resection. Stable. 3. Pneumonia secondary to Enterobacter. Continue on the current antibiotic therapy. 4. Enterobacter and Enterococcus faecalis wound infection. Continue on antibiotic therapy. 5. Diabetes mellitus type 2. Continue on sliding scale insulin. 6. Diabetic neuropathy. Aware. 7. Continue with physical therapy. [facility]
--- NOTE | 2016-11-28 14:24 | Diag Imaging Result Document ---
PROCEDURE NAME: SARAH ABDOMEN - 11/28/2016 X-RAY ABDOMEN, 2 VIEWS: COMPARISON: 11/23/2016. FINDINGS: Stable surgical skin anita. There is barium throughout the colon that is largely unchanged since prior. The colon remains somewhat hyperinflated with gas. No significant small- bowel dilation. IMPRESSION: Colonic ileus. No significant change from prior.
[2016-11-28] MEDS ORDERED: LASIX IV ONE (14:52)
[2016-11-28 14:58] LABS: ALLEN TEST YES; BLOOD TYPE ARTERIAL; DRAW SITE L RADIAL; METHB 1.8 % (0.0-1.5); O2(CT) 10.1 mL/dL (15.0-23.0); SAMPLE BLOOD; SAO2 77.8 % (95.0-100.0); THB 9.6 g/dL (11.5-17.4)
[2016-11-28 15:00] LABS: MODALITY VENTIMASK; PCO2(98.6) 98 mmHg (35-45); PO2(98.6) 44 mmHg (60-100); pH(98.6) 7.19 (7.35-7.45)
--- NOTE | 2016-11-28 16:04 | Diag Imaging Result Document ---
PROCEDURE NAME: CHEST-PORTABLE - 11/28/2016 PORTABLE CHEST AT 1500 HOURS: COMPARISON: Film from 0725 hours. FINDINGS: Stable right PICC line. Stable cardiomegaly. Stable diffuse bilateral pulmonary edema. Stable pleural effusions. IMPRESSION: No change from prior.
[2016-11-28 16:10] LABS: ALLEN TEST YES; BE 7.6 mmoll (-3.0-3.0); BLOOD TYPE ARTERIAL; DRAW SITE L RADIAL; METHB 1.6 % (0.0-1.5); O2(CT) 12.6 mL/dL (15.0-23.0); PO2(98.6) 158 mmHg (60-100); SAMPLE BLOOD; SAO2 99.7 % (95.0-100.0); pH(98.6) 7.37 (7.35-7.45)
[2016-11-28 16:12] LABS: MODALITY BI PAP; PCO2(98.6) 59 mmHg (35-45)
[2016-11-29] MEDS: LASIX IV SCH ×3 (00:03→23:56)
[2016-11-29] MEDS: AMPICILLIN 2 GM/NS 100 ML IV SCH ×5 (00:03→23:56)
[2016-11-29] MEDS: LOPRESSOR IV SCH ×7 (00:04→23:56)
[2016-11-29] MEDS: DUONEB (A & A) INH SCH ×6 (03:22→23:25)
[2016-11-29 03:38] LABS: ALLEN TEST YES; BE 13.9 mmoll (-3.0-3.0); BLOOD TYPE ARTERIAL; DRAW SITE R RADIAL; METHB 2.1 % (0.0-1.5); O2(CT) 12.1 mL/dL (15.0-23.0); PO2(98.6) 169 mmHg (60-100); SAMPLE BLOOD; SAO2 99.2 % (95.0-100.0); SRATE 18 BPM; THB 8.7 g/dL (11.5-17.4); pH(98.6) 7.45 (7.35-7.45)
[2016-11-29 03:39] LABS: MODALITY BI PAP
[2016-11-29 03:43] LABS: PCO2(98.6) 57 mmHg (35-45)
[2016-11-29] MEDS: HEPARIN SUBQ SCH ×3 (04:34→21:30)
[2016-11-29] MEDS: CARDIZEM PO SCH ×3 (04:34→21:30)
[2016-11-29 05:07] LABS: MANUAL DIFF NEEDED? NO
[2016-11-29 05:18] LABS: BASO% 0.5 % (0.0-0.8); EOS# 0.13 X1000 (0.0-0.7); EOS% 2.1 % (0.0-10.0); HEMATOCRIT 27.7 % (42.0-52.0); HEMOGLOBIN 8.2 g/dL (14.0-18.0); IMM GRAN# 0.03 X1000 (0.0-0.04); IMM GRAN% 0.5 % (0.0-0.5); LYMPH# 1.18 X1000 (1.2-3.4); MCH 30.6 PG (27-31); MCHC 29.6 g/dL (33-37); MCV 103.4 FL (81-99); MONO# 0.76 X1000 (0.11-0.59); MONO% 12.3 % (1.7-9.3); MPV 10.9 FL (7.4-10.4); NEUT% 65.6 % (42.2-75.2); PLT 169 X1000 (130-400); RBC 2.68 XMIL (4.7-6.1)
[2016-11-29] MEDS: SODIUM CHLORIDE 0.9% INJ SCH (05:49)
[2016-11-29] MEDS: PROTONIX IV SCH (05:49)
[2016-11-29] MEDS: HUMULIN R SUBQ SCH ×4 (06:19→22:31)
[2016-11-29] MEDS: LEVAQUIN 500 MG/D5W 100 ML IV SCH (09:23)
[2016-11-29] MEDS: ALBUMIN 25% IV SCH (09:24)
[2016-11-29] MEDS: FOLIC ACID PO SCH (09:29)
--- NOTE | 2016-11-29 11:05 | Diag Imaging Result Document ---
PROCEDURE NAME: CHEST-PORTABLE - 11/29/2016 PORTABLE CHEST: COMPARISON: 11/28/2016. FINDINGS: Stable right PICC line. Stable cardiomegaly and pulmonary vascular congestion. Stable central infiltrates compatible with edema. There may be worsening, rather large pleural effusions. IMPRESSION: Worsening pleural effusions. Otherwise, stable cardiomegaly and severe pulmonary edema.
[2016-11-29 13:30] LABS: CALCIUM 8.2 mg/dL (8.8-10.2); MAGNESIUM 1.6 mg/dL (1.5-2.7); POTASSIUM 3.8 mmol/L (3.5-5.1)
--- NOTE | 2016-11-29 15:15 | PROGRESS NOTE ---
DATE: 11/29/2016 SUBJECTIVE: The patient is awake and alert this morning. He is currently on a Ventimask. He states that his shortness of breath is improved. OBJECTIVE: Vital Signs: Temperature 98.2 degrees, blood pressure 175/54, heart rate 71, respirations 24, O2 saturations 99% on the Ventimask. General: This is a morbidly obese male, lying in bed, in no acute distress. Head: Normocephalic, atraumatic. Heart: S1, S2. Normal. Regular rate and rhythm. Lungs: Diminished breath sounds bilaterally. No crackles. No rales. Abdomen: Positive bowel sounds. Soft, obese, nontender. Extremities: There is 2 to 3+ edema. No cyanosis. No calf tenderness. Neurologic: The patient is alert and oriented x3. No focal neurologic deficits noted. LABS: White blood cell count 6.2, hemoglobin 8.2, hematocrit 27, platelets 169,000. ASSESSMENT AND PLAN: 1. Acute on chronic hypoxemic respiratory failure secondary to pulmonary edema and volume overload. We will continue to diurese the patient with Lasix. Continue on bronchodilator therapy plus supplemental oxygen. 2. Acute pulmonary edema. Continue on diuretic therapy. Pulmonary is following. 3. Status post bowel resection with wound dehiscence. Stable. 4. Pneumonia secondary to Enterobacter. Continue on ampicillin and Levaquin. This will be transitioned to oral antibiotics once the patient is stable from a pulmonary standpoint. 5. Enterobacter and Enterococcus faecalis wound infection. Continue on antibiotic therapy. 6. Diabetes mellitus type 2. Continue on sliding scale insulin. 7. Diabetic neuropathy. Aware. 8. Paroxysmal atrial fibrillation. The patient is currently rate controlled. Continue on Cardizem. 9. Vitamin D deficiency. Continue on vitamin D replacement. 10. Gastrointestinal prophylaxis. Continue on Protonix. 11. Deep vein thrombosis prophylaxis. Continue on heparin 5000 units subcutaneous every 8 hours. 12. Disposition. The patient will be discharged home with home health once he is stable from a respiratory standpoint.
[2016-11-30 03:25] LABS: ALLEN TEST YES; BE 13.1 mmoll (-3.0-3.0); BLOOD TYPE ARTERIAL; DRAW SITE R RADIAL; METHB 1.6 % (0.0-1.5); O2(CT) 11.8 mL/dL (15.0-23.0); PO2(98.6) 203 mmHg (60-100); SAMPLE BLOOD; SRATE 18 BPM; THB 8.3 g/dL (11.5-17.4); pH(98.6) 7.46 (7.35-7.45)
[2016-11-30] MEDS: DUONEB (A & A) INH SCH ×6 (03:25→23:07)
[2016-11-30 03:29] LABS: MODALITY BI PAP; PCO2(98.6) 54 mmHg (35-45)
[2016-11-30] MEDS: HEPARIN SUBQ SCH ×3 (04:13→20:04)
[2016-11-30] MEDS: CARDIZEM PO SCH ×3 (04:13→20:05)
[2016-11-30] MEDS: LOPRESSOR IV SCH ×2 (04:13→09:06)
[2016-11-30 05:32] LABS: MANUAL DIFF NEEDED? NO
[2016-11-30] MEDS: SODIUM CHLORIDE 0.9% INJ SCH (05:35)
[2016-11-30] MEDS: AMPICILLIN 2 GM/NS 100 ML IV SCH (05:35)
[2016-11-30] MEDS: PROTONIX IV SCH (05:35)
[2016-11-30 05:40] LABS: BASO% 0.3 % (0.0-0.8); EOS# 0.16 X1000 (0.0-0.7); EOS% 2.1 % (0.0-10.0); HEMATOCRIT 28.3 % (42.0-52.0); HEMOGLOBIN 8.5 g/dL (14.0-18.0); IMM GRAN# 0.03 X1000 (0.0-0.04); IMM GRAN% 0.4 % (0.0-0.5); LYMPH# 1.22 X1000 (1.2-3.4); LYMPH% 16.4 % (20.5-51.1); MCH 30.7 PG (27-31); MCV 102.2 FL (81-99); MONO# 0.83 X1000 (0.11-0.59); MONO% 11.1 % (1.7-9.3); MPV 10.6 FL (7.4-10.4); NEUT% 69.7 % (42.2-75.2); PLT 159 X1000 (130-400); RBC 2.77 XMIL (4.7-6.1)
[2016-11-30] MEDS: HUMULIN R SUBQ SCH ×4 (06:13→20:05)
--- NOTE | 2016-11-30 06:20 | PROGRESS NOTE ---
DATE: 11/30/2016 SUBJECTIVE: The patient had some respiratory issues over the weekend. He is otherwise doing okay right now. Tolerated a diet. OBJECTIVE: Vital Signs: Patient is currently afebrile. His vital signs have been stable. General: He is on Ventimask. Cardiovascular: Regular rate and rhythm. Lungs: Some coarse sounds noted bilaterally. Abdomen: Soft, nontender, nondistended. Incision is okay. Bowel sounds auscultated. Binder in place. Labs: From this morning reviewed. His ABG was reviewed. ASSESSMENT AND PLAN: An 86-year-old, male status post exploratory laparotomy with small- bowel resection and fascial dehiscence x2. 1. Postoperative state. At this time, patient is doing well from a general surgery perspective as far as his bowel surgery. His respiratory status is the main issue at this point. 2. Respiratory status. At this time, patient likely has some degree of acute on chronic hypoxemic respiratory failure. This is likely secondary to pulmonary edema and volume overload. May need to consider echocardiogram since the patient is not receiving much in the way of volume at this time. We will defer that to the hospitalist service. Once he is stable from a medical point of view, can be discharged home.
--- NOTE | 2016-11-30 06:44 | PROGRESS NOTE ---
DATE: 11/30/2016 PRESENT ILLNESS: The patient has an Enterobacter pneumonia and Enterobacter and enterococcal abdominal wound infection. MEDICATIONS: The patient has been receiving Levaquin and ampicillin intravenously for 13 days. PHYSICAL EXAMINATION: Vital Signs: Temperature is 99.8 degrees, pulse 88, respirations 16, blood pressure 124/87. General: The patient is ill-appearing. He is wearing an oxygen mask. He seems to be some somewhat dyspneic even at rest. Cardiovascular: Heart rate is irregular. Lungs: Clear to auscultation. Abdomen: Soft, the incision is intact. There is no erythema and no drainage coming from the incision. Neurologic: The patient is awake. He can move his extremities. He converses. Extremities: Both legs have edema. LABORATORY AND X-RAY: Chest x-ray shows pulmonary edema with worsening pleural effusions. The patient's CBC shows a white count of 7450, hemoglobin 8.5, and platelet count 159,000. The patient's blood gases show a pH of 7.46, a PO2 of 203, and a pCO2 of 54. The patient's creatinine is 1.3. The GFR is 53. ASSESSMENT AND PLAN: The patient has gotten over his pneumonia and abdominal wound infection. At this time, I do not think there are any infections going on. My plan would be to discontinue his antibiotics. I am available to see the patient on an as-needed basis. COMORBIDITIES: Include diabetes mellitus, being very elderly, multiple abdominal procedures, and obesity. I am available to see the patient on an as-needed basis.
[2016-11-30] MEDS: LEVAQUIN 500 MG/D5W 100 ML IV SCH (09:05)
[2016-11-30] MEDS: FOLIC ACID PO SCH (09:06)
--- NOTE | 2016-11-30 09:59 | Diag Imaging Result Document ---
PROCEDURE NAME: CHEST-PORTABLE - 11/30/2016 AP PORTABLE CHEST AT 0500 HOURS: FINDINGS: There is alveolar opacity in both lower lung moore. There may be small pleural effusions. The appearance of the chest has not changed significantly since 11/29/2016. IMPRESSION: Pulmonary edema.
--- NOTE | 2016-11-30 11:47 | PROGRESS NOTE ---
DATE: 11/30/2016 SUBJECTIVE: Patient is awake, alert. Denies any complaint. He denies any shortness of breath this morning. Denies any fever or chills. OBJECTIVE: Vital Signs: Temperature 98.8 degrees, heart rate 97, respiratory rate 20, blood pressure 125/54, O2 saturation 97% on Venturi mask at 40%. General: This is a morbidly obese, 86- year-old male, lying in bed, in no acute distress. HEENT: Head is normocephalic, atraumatic. Anicteric sclerae. Pale conjunctivae. Mucous membranes moist. Neck: Supple. No JVD noted. No carotid bruits. No lymphadenopathy. No thyromegaly. Cardiovascular: S1, S2 heard. No murmurs, gallops, or rubs. Regular rate and rhythm. Respiratory: Decreased breath sounds globally. There are no crackles or wheezing. Patient is not using any accessory muscles or having work of breathing. Abdomen: Soft. Nontender to palpation. Bowel sounds present. No organomegaly. Extremities: There is 2 to 3+ pitting edema both lower extremities. No cyanosis. Neurological: Patient is alert and oriented x3. Able to move 4 extremities. Cranial nerves 2 through 12 grossly normal. LABORATORY DATA: White cell count 7.45, hemoglobin 8.5, hematocrit 28.3, platelets 159,000. ABG shows pH 7.46, pCO2 54, PO2 203. ASSESSMENT AND PLAN: 1. Acute on chronic hypoxemic respiratory failure secondary to pulmonary edema and volume overload. Patient continues with Lasix and currently the patient is receiving furosemide IV 40 mg q.12 hours. Will continue with the same management. In's and outs indicate that this patient during the last 4 days balance has negative 1.2, 2.2, 1.2 L. Will continue with the same management. 2. Acute pulmonary edema. As we mentioned before, patient is on Lasix 40 q.12. We will continue with same management. 3. Status post bowel resection with wound dehiscence. Stable. Dr. Toney is following this patient. 4. Pneumonia secondary to Enterobacter. Patient has been on ampicillin and Levaquin by Dr. Hernandez from Infectious Disease. He thinks this patient does not need any antibiotics.. 5. Enterobacter and Enterococcus faecalis wound infection. Infectious Disease has discontinued all antibiotics. 6. Diabetes mellitus type 2. We will continue with sliding scale insulin. 7. Diabetic neuropathy. Aware. 8. Paroxysmal atrial fibrillation. Right now the rate is controlled. We will continue with Cardizem. 9. Vitamin D deficiency. On vitamin D supplement. 10. Disposition. This patient is still requiring high amounts of oxygen. We have reconsulted will be general from Cardiology. We will see what he has to say. In any case, the patient will be ready to go home when his oxygen needs decrease a little bit, at least 2-3 L per day. He will not go to rehab because according to the son, who is at bedside, they have a private physical therapy team at home who can provide this physical therapy 2-3 times per day.
[2016-11-30] MEDS: TOPROL XL PO SCH (13:59)
[2016-11-30] MEDS: LASIX IV SCH ×2 (13:59→23:17)
--- NOTE | 2016-11-30 19:10 | ECHO REPORT ---
ORDER DATE: 11/30/2016 INTERPRETING PHYSICIAN: Dr. Bush REQUESTING PHYSICIAN: CLINICAL INDICATIONS: An 86-year-old male with pulmonary edema, bowel obstruction, pneumonia. M-MODE MEASUREMENTS: Right ventricle: 3.5 cm. Left ventricle end diastole: 4.6 cm. Left ventricle end systole: 2.9 cm. Posterior wall: 1.0 cm. Interventricular septum: 1.1 cm. Left atrium: 3.7 cm. Aortic root: 4.7 cm. SUMMARY OF 2-DIMENSIONAL IMAGING: This study is technically difficult. The patient is obese. The left ventricular systolic function in general appears to be well preserved, estimated at 55%. I do not see any definite indication of significant wall motion abnormality. This study is difficult because the patient is in atrial fibrillation with variable rate. In addition, he is obese and has limited apical windows. The right ventricle is mildly enlarged. The atria are probably at the upper limits of normal. The mitral annulus shows moderate calcification. The mitral valve shows a mild degree of regurgitation by color flow mapping. Pulse wave Doppler of mitral inflow shows a single filling wave. The patient is in atrial fibrillation. The aortic valve shows a mild degree of sclerosis of the cusp without stenosis. Color flow mapping shows no regurgitation. I do not see evidence of any significant degree of pericardial effusion. The tricuspid valve shows a moderate degree of regurgitation. The pulmonary systolic pressure is estimated at 81 mmHg which is moderately to significantly elevated. The pulmonic valve appears to be unremarkable. Color flow mapping shows a mild degree of regurgitation. There is no evidence of masses. No thrombus. Clinical correlation recommended.
[2016-11-30] MEDS: MORPHINE IV PRN (23:16)
[2016-12-01] MEDS: DUONEB (A & A) INH SCH ×6 (03:01→23:12)
[2016-12-01] MEDS ORDERED: SODIUM CHLORIDE 0.9% 10 ML ONE (05:44)
[2016-12-01] MEDS: HEPARIN SUBQ SCH ×3 (05:53→21:01)
[2016-12-01] MEDS: PROTONIX IV SCH (05:54)
[2016-12-01] MEDS: CARDIZEM PO SCH ×3 (05:54→21:01)
[2016-12-01] MEDS: HUMULIN R SUBQ SCH ×4 (06:04→21:05)
--- NOTE | 2016-12-01 06:39 | PROGRESS NOTE ---
DATE: 12/01/2016 SUBJECTIVE: The patient restless overnight. No major issues. OBJECTIVE: Vital Signs: Patient is currently afebrile. Most recently heart rate 101, respiratory rate in the mid to high 20s, blood pressure 144/53. O2 saturation 100% on Venturi mask at 50% oxygen. General: No acute distress. Cardiovascular: Some irregularity. Lungs: Some coarse sounds noted bilaterally. Abdomen: Soft, nontender, nondistended. Incision is okay. Bowel sounds auscultated. Binder in place. LABORATORY: None from this morning as of yet. Chest x-ray from yesterday reviewed. Still with pulmonary edema. ASSESSMENT AND PLAN: An 86-year-old male status post exploratory laparotomy with small- bowel resection of fascial dehiscence x2. 1. Postoperative state at this time, patient seems to be doing well from a general surgery perspective as far as his bowel surgery. At this point, his respiratory status is his main issue. 2. Respiratory status this time, patient likely has some degree of acute on chronic hypoxemic respiratory failure. This appears to be secondary to pulmonary edema. He had an echocardiogram done yesterday which did not seem to suggest significant degree of congestive heart failure from what I read from the report. May need to continue doing gentle diuresis to try and get some volume off his lungs. Otherwise encouraged patient to mobilize. We will continue with physical therapy.
[2016-12-01 08:59] LABS: ALLEN TEST YES; BE 14.4 mmoll (-3.0-3.0); BLOOD TYPE ARTERIAL; DRAW SITE R RADIAL; METHB 1.9 % (0.0-1.5); MODALITY CANNULA; O2(CT) 11.9 mL/dL (15.0-23.0); SAMPLE BLOOD; SAO2 88.3 % (95.0-100.0); pH(98.6) 7.39 (7.35-7.45)
[2016-12-01 09:01] LABS: PCO2(98.6) 69 mmHg (35-45); PO2(98.6) 48 mmHg (60-100)
[2016-12-01] MEDS: TOPROL XL PO SCH (09:31)
[2016-12-01] MEDS: FOLIC ACID PO SCH (09:31)
--- NOTE | 2016-12-01 10:48 | PROGRESS NOTE ---
DATE: 12/01/2916 SUBJECTIVE: The patient reports feeling better. He denies shortness of breath. He was unable to sleep last night. OBJECTIVE: Vital Signs: Temperature 97.9 degrees, heart rate 80, respiratory rate 28, blood pressure 168/71, O2 saturation 95% on 4 L nasal cannula. General: This is a morbidly obese and chronically ill-looking, 86-year-old male, lying in bed, in no acute distress. HEENT: Head is normocephalic and atraumatic. Anicteric sclerae and pale conjunctivae. Mucous membranes are moist. Neck supple. No JVD noted. No carotid bruits. No lymphadenopathy. No thyromegaly. Cardiovascular: S1, S2 heard. No murmurs, gallops, or rubs. Regular rate and rhythm. Respiratory: Decreased breath sounds globally. No crackles or wheezing noted. The patient is not using any accessory muscles or having work of breathing. Abdomen is soft, nontender to palpation. Bowel sounds present. No organomegaly. Extremities: 2+ pitting edema in both lower extremities, unchanged in comparing with yesterday. Neurological: The patient is alert and oriented x3. and moves 4 extremities. LABORATORY DATA: 1. ABG shows pH of 7.39, pCO2 of 69, PO2 of 48. ABDOMEN AND PELVIS: 1. [id number] hypoxemic respiratory failure secondary to pulmonary edema. The patient is on Lasix 40 mg IV q.12 hours. He has moved so far, according to the chart, almost 2800 mL of urine. We are going to continue with the same management. Chest x-ray shows still pulmonary edema. 2. Acute pulmonary edema. As we mentioned before, patient is on diuretics, and he responded to medication. 3. Status post bowel resection with wound dehiscence. Dr. Toney from General Surgery is following this patient. 4. Pneumonia secondary to Enterobacter. This condition has resolved. 5. Diabetes mellitus, type 2. We will continue with the sliding scale insulin. 6. Diabetic neuropathy, aware. 7. Paroxysmal atrial fibrillation. But, right now, the rate is controlled. We will continue Cardizem. 8. Vitamin D deficiency. We are going to continue supplementing. DISPOSITION: The patient will go home when his oxygen needs have changed to 2-3 L of nasal cannula per minute.
[2016-12-01] MEDS: LASIX IV SCH (12:07)
[2016-12-01] MEDS: BLISTEX MEDICATED BERRY LIP BALM TOP PRN (21:00)
[2016-12-01] MEDS: DESYREL PO SCH (21:01)
[2016-12-01] MEDS: MORPHINE IV PRN (21:02)
[2016-12-02] MEDS: LASIX IV SCH ×3 (00:08→23:33)
[2016-12-02] MEDS: DUONEB (A & A) INH SCH ×6 (03:17→23:07)
[2016-12-02 04:26] LABS: ALLEN TEST YES; BE 15.6 mmoll (-3.0-3.0); BLOOD TYPE ARTERIAL; DRAW SITE R RADIAL; METHB 1.8 % (0.0-1.5); O2(CT) 10.8 mL/dL (15.0-23.0); SAMPLE BLOOD; SAO2 83.1 % (95.0-100.0); SRATE 18 BPM; THB 9.6 g/dL (11.5-17.4); pH(98.6) 7.39 (7.35-7.45)
[2016-12-02 04:37] LABS: PCO2(98.6) 71 mmHg (35-45)
[2016-12-02 04:38] LABS: MODALITY BI PAP; PO2(98.6) 41 mmHg (60-100)
[2016-12-02 05:16] LABS: MANUAL DIFF NEEDED? NO
[2016-12-02 05:29] LABS: BASO% 0.1 % (0.0-0.8); EOS# 0.16 X1000 (0.0-0.7); EOS% 2.4 % (0.0-10.0); HEMATOCRIT 29.2 % (42.0-52.0); HEMOGLOBIN 8.7 g/dL (14.0-18.0); IMM GRAN# 0.02 X1000 (0.0-0.04); IMM GRAN% 0.3 % (0.0-0.5); LYMPH# 1.12 X1000 (1.2-3.4); LYMPH% 16.5 % (20.5-51.1); MCH 30.3 PG (27-31); MCHC 29.8 g/dL (33-37); MCV 101.7 FL (81-99); MONO# 0.63 X1000 (0.11-0.59); MONO% 9.3 % (1.7-9.3); MPV 10.3 FL (7.4-10.4); NEUT% 71.4 % (42.2-75.2); PLT 146 X1000 (130-400); RBC 2.87 XMIL (4.7-6.1)
[2016-12-02] MEDS: HUMULIN R SUBQ SCH ×4 (05:50→21:54)
[2016-12-02 05:56] LABS: ALLEN TEST YES; BE 15.9 mmoll (-3.0-3.0); BLOOD TYPE ARTERIAL; DRAW SITE R RADIAL; METHB 1.6 % (0.0-1.5); MODALITY BI PAP; O2(CT) 12.6 mL/dL (15.0-23.0); PO2(98.6) 288 mmHg (60-100); SAMPLE BLOOD; SAO2 100.6 % (95.0-100.0); SRATE 18 BPM; THB 8.7 g/dL (11.5-17.4); pH(98.6) 7.44 (7.35-7.45)
[2016-12-02 05:57] LABS: PCO2(98.6) 62 mmHg (35-45)
--- NOTE | 2016-12-02 06:01 | PROGRESS NOTE ---
DATE: 12/02/2016 SUBJECTIVE: No significant changes. Patient is resting currently. No major issues reported by the nursing staff. OBJECTIVE: Vital Signs: Patient is currently afebrile. His vital signs have been stable. He is currently on BiPAP. General: No acute distress. Cardiovascular: Some irregularity. Lungs: Some coarse sounds noted bilaterally. Abdomen: Soft, nontender, nondistended. Binder in place. LABORATORY: ABG from early this morning reviewed. pH 7.39, pCO2 of 71, PO2 of 41, base excess of 15. O2 saturation 83.1 on BiPAP. ASSESSMENT/PLAN: An 86-year-old, male status post exploratory laparotomy with small- bowel resection and fascial dehiscence x2. 1. Postoperative state: At this time, patient seems to be doing well from a general surgical point of view. His respiratory status is his main issue at this point. 2. Respiratory status at this time: Patient continues to require supplemental therapy. He is on bronchodilators. His ABG this morning could potentially represent a venous stick. They are repeating his ABGs here shortly. He does have pulmonary edema on chest x-rays, but unsure exactly where the volume to cause of pulmonary edema is coming from. At this time, I think if the patient mobilized, he would have some improvement in his lungs. Given his prolonged respiratory status, may need to consider other alternatives for disposition including some degree of a rehab facility so they can supplement his O2 needs. We will continue to follow the patient while he is here.
[2016-12-02] MEDS: CARDIZEM PO SCH (06:02)
[2016-12-02] MEDS: HEPARIN SUBQ SCH ×3 (06:03→21:54)
[2016-12-02] MEDS: PROTONIX IV SCH (06:04)
--- NOTE | 2016-12-02 08:14 | Diag Imaging Result Document ---
PROCEDURE NAME: CHEST-PORTABLE - 12/02/2016 AP PORTABLE CHEST, 12/02/2016 AT 0725 HOURS: FINDINGS: There are pleural effusions bilaterally. There is pulmonary edema in both lower lobes. This appears slightly worse than on 11/30/2016 although some of the difference is probably technical. IMPRESSION: Pulmonary edema.
[2016-12-02] MEDS: FOLIC ACID PO SCH (09:13)
[2016-12-02] MEDS: CARDIZEM CD PO SCH (09:14)
[2016-12-02] MEDS: TOPROL XL PO SCH (09:14)
--- NOTE | 2016-12-02 09:26 | PROGRESS NOTE ---
DATE: 12/02/2016 SUBJECTIVE: The patient reports feeling better, although his oxygen needs have gone up today again. He was able to sleep last night. OBJECTIVE: Vital Signs: Temperature 98.6 degrees, heart rate 82, respiratory rate 18, blood pressure 119/48. O2 saturation 95% on Venturi mask. General: He is a morbidly obese, chronically ill-appearing, 86-year-old male, lying in bed in no acute distress. HEENT: Head is normocephalic and atraumatic. Anicteric sclerae and pale conjunctivae. Mucous membranes are moist. Neck supple. No JVD noted. No carotid bruits. No lymphadenopathy. No thyromegaly. Cardiovascular: S1, S2 heard. No murmurs, gallops, or rubs. Regular rate and rhythm. Respiratory: Decreased breath sounds globally. Some crackles noted in both bases but the patient is not using any accessory muscles or having work of breathing. By now, he is using Venturi mask. Abdomen: Soft, nontender to palpation. Bowel sounds present. No organomegaly. Extremities: 1+ pitting edema in both lower extremities. Same in comparing with yesterday. Peripheral pulses present in both legs. Neurologic: The patient is alert and oriented x3. Moves 4 extremities. LABORATORY DATA: White cell count 6.8, hemoglobin 8.7, hematocrit 39.2, platelets 146. ABG shows a pH of 7.44, pCO2 of 62, PO2 of 288. ASSESSMENT AND PLAN: 1. [id number] hypoxemic respiratory failure secondary to pulmonary edema. Despite being on Lasix 40 mg IV q.12 hours and the fact that this patient is having good urinary output, the patient is still requiring high amounts of oxygen. In this case, he is using Venturi mask, and x-ray continues to show worsening pulmonary edema. At this time, we have re-consulted cardiology, Dr. Bush. We will see what he has to say. At this time, we are going to continue with the same management. 2. Status post bowel resection with wound dehiscence. Dr. Toney from General Surgery is following this patient. No new recommendations. 3. Pneumonia secondary to Enterobacter: That condition is completely resolved. Dr. Hernandez has been following this patient and he stopped antibiotics. 4. Diabetes mellitus, type 2. We will continue with sliding scale insulin. So far, blood sugar has been controlled very good. 5. Diabetic neuropathy, aware. 6. Paroxysmal atrial fibrillation. By now, the patient is in sinus rhythm and the patient is on Cardizem 60 mg 3 times per day, which we are going to switch to Cardizem CD 180 mg p.o. daily. 7. Vitamin D deficiency. Patient receiving vitamin D supplements. MTDD
[2016-12-02 11:04] LABS: CALCIUM 8.8 mg/dL (8.8-10.2); MAGNESIUM 1.7 mg/dL (1.5-2.7); POTASSIUM 3.5 mmol/L (3.5-5.1)
[2016-12-02 11:06] LABS: ALBUMIN 3.6 g/dL (3.5-5.0); PREALBUMIN 12.3 mg/dL (20-40)
[2016-12-02 15:10] LABS: INR 1.15; PROTIME 12.2 Seconds (9.2-11.7); PTT 32.8 Seconds (22.0-36.0)
--- NOTE | 2016-12-02 17:00 | Diag Imaging Result Document ---
PROCEDURE NAME: US THORACENTESIS - 12/02/2016 ULTRASOUND-GUIDED THORACENTESIS: COMPARISON: None available. FINDINGS: Risks, benefits, and alternatives were discussed with the patient, and informed consent was obtained. The patient was prepped and draped in sterile fashion and local anesthesia was achieved with 1% lidocaine solution. Using ultrasound guidance, a large-bore catheter was inserted into the right pleural space and approximately 1000 mL of straw-colored serous fluid was aspirated. There were no known complications. A chest radiograph is to follow. IMPRESSION: Technically successful ultrasound-guided right thoracentesis.
--- NOTE | 2016-12-02 17:05 | Diag Imaging Result Document ---
PROCEDURE NAME: CHEST-2 VIEWS - 12/02/2016 INSPIRATORY AND EXPIRATORY RADIOGRAPH OF THE CHEST: COMPARISON: 12/02/2016. FINDINGS: There is no evidence of pneumothorax status post right thoracentesis. There has been interval reduction in the size of the right pleural fluid collection status post thoracentesis, with better aeration at the right lung base. The left effusion with adjacent atelectasis and/or infiltrate is unchanged. Right PICC line is in stable position. Cardiac silhouette is stable. There are no new consolidations. IMPRESSION: No evidence of pneumothorax status post right thoracentesis with improvement of aeration at the right lung base.
--- NOTE | 2016-12-02 17:28 | PROGRESS NOTE ---
DATE: 12/02/2016 CHIEF COMPLAINT: Shortness of breath. SUBJECTIVE: Mr. Tucker just came back from thoracentesis of the right lung. Dr. Graf removed about 1 liter of fluid. He has noted immediate relief of his dyspnea. He is more comfortable at this time. His son is at the bedside, and he tells me that he looks definitely better.He denies having chest pains, palpitations. He is dyspneic. OBJECTIVE: Vital signs: Blood pressure 140/67, pulse 92, temperature 98.1, respirations 18. General: He is obese, awake, alert, cooperative, conversant. He said that is not having any pain anywhere. He has not been having a whole lot of bowel movements. He passes gas. His abdomen is not significantly distended according to him. HEENT: Unremarkable. Chest: Diminished breath sounds especially in the left lung with tubular sounds. The right lung shows better excursion. There is no significant crackling or rubs noted. Cardiac: Heart sounds are irregularly irregular. I do not hear any gallop or murmur. Abdomen: His abdomen is obese , distended. He does have a corset-like restraint in the abdomen. Extremities: Extremities show decreased pulses. No significant edema noted. Neurological exam: He follows commands. Moves four extremities. BLOOD WORK: Today, sodium is 143, potassium 3.5, BUN 37, creatinine 1.3. Sedimentation rate is 43. C-reactive protein is 32.17. ProBNP is 2233. It was 2031 four days ago. His blood gases today showed the pH of 7.4, PCO2 62, PO2 of 288; that was on a BiPAP with 100% oxygen. His threat monitoring analyst has consistently shown atrial fibrillation with controlled ventricular response over the past few days. IMAGING STUDIES: A chest x-ray has been done post thoracentesis. There is no evidence of pneumothorax. IMPRESSION: 1. Patient who is on postoperative period following three consecutive abdominal surgeries which took place first on , next on 11/07/2016, and the last one on 2016. The last two were done for dehiscence of the increase, the first one for bowel obstruction. 2. The postoperative course has been complicated with respiratory failure, predominantly due to a combination of compressive atelectasis, pleural effusions, some diastolic dysfunction of the heart. A recent echocardiogram which I personally reviewed two days ago showed preserved left ventricular systolic function, ejection fraction of 55%, without any evidence of any significant valvular abnormality. He had evidently pulmonary hypertension. 3. He still has persistent atrial fibrillation. His rate is controlled. His systemic blood pressure also according to multiple measurements noted in the chart has been within physiologic range. 4. He does have a history of coronary artery disease s/p CABG , and over the past 4 weeks he has not shown any indication of any ischemic event. RECOMMENDATION: After discussion with Dr. Rios today, we felt that removing fluid from the chest cavity would probably be a good way of quickly allowing him to improve his oxygenation by getting rid of the compressive atelectasis. He is not seriously hypervolemic at this point in time. I would consider perhaps doing the same procedure on the left side, left thorax , and try to remove as much fluid as possible to give him a window of opportunity to expand his lungs. I personally explained to him how he needs to do the incentive spirometry and how important it is for him to get up and move and also to increase his oral intake. Hopefully with physical therapy, nutrition, and chest physiotherapy, we will get him into a more sound state so he can hopefully move on to a rehabilitation facility for a few days to continue his convalescence. Patient and family in agreement. Will follow him along. MTDD
[2016-12-02] MEDS: DILAUDID IV PRN ×2 (18:43→22:02)
[2016-12-02 20:23] LABS: SPECIMEN PLEURAL FLUID
[2016-12-02 20:44] LABS: TOTAL PROT BODY FLUID 2.9 g/dL
[2016-12-02 21:20] LABS: DIFF NEEDED? YES; WBC BF 177 /cumm
[2016-12-02 21:21] LABS: MONOS 72 %; POLYS 28 %
[2016-12-02] MEDS: DESYREL PO SCH (21:54)
[2016-12-03] MEDS: DUONEB (A & A) INH SCH ×6 (02:59→22:30)
[2016-12-03 03:23] LABS: BLOOD TYPE ARTERIAL; SAMPLE BLOOD
[2016-12-03 03:27] LABS: ALLEN TEST YES; BE 18.2 mmoll (-3.0-3.0); DRAW SITE R RADIAL; METHB 1.8 % (0.0-1.5); O2(CT) 9.6 mL/dL (15.0-23.0); PO2(98.6) 61 mmHg (60-100); SAO2 96.6 % (95.0-100.0); THB 7.3 g/dL (11.5-17.4); pH(98.6) 7.43 (7.35-7.45)
[2016-12-03 03:28] LABS: MODALITY VENTIMASK
[2016-12-03 03:30] LABS: PCO2(98.6) 67 mmHg (35-45)
[2016-12-03] MEDS ORDERED: SODIUM CHLORIDE 0.9% 10 ML ONE (05:18)
[2016-12-03] MEDS: HEPARIN SUBQ SCH ×3 (06:06→21:30)
[2016-12-03] MEDS: PROTONIX IV SCH (06:06)
--- NOTE | 2016-12-03 06:12 | PROGRESS NOTE ---
DATE: 12/03/2016 SUBJECTIVE: The patient had thoracentesis yesterday on the right side and drained about 1 L of fluid per the note. His respiratory status is improved somewhat. Reviewed aviation consultant's notes. The patient seems to be resting comfortably and had a better night overnight. No major issues reported by the family. OBJECTIVE: Vital Signs: Patient is currently afebrile. His vital signs have been stable. General: No acute distress. Cardiovascular: Some irregularity. Lungs: Coarse sounds noted but improved aeration. Abdomen: Soft, nontender, nondistended. Binder in place. LABORATORY: Reviewed ABG from this morning. A pH 7.43, pCO2 67 and PO2 61. ASSESSMENT/PLAN: An 86-year-old male status post exploratory laparotomy with small- bowel resection and fascial dehiscence x2. 1. Postoperative state at this time, the patient seems to be doing well from a general surgery point of view. We will add MiraLAX to his daily routine. 2. Respiratory status. At this time, the patient still is requiring supplemental therapy. He is on bronchodilators. He has had a thoracentesis which had some improvement. There is consideration of a thoracentesis on the left side. I would agree with pursuing that. Cardiology is re-evaluating the patient and will follow with their recommendations on potential interventions for his heart, but otherwise it sounds essentially unchanged from a month ago. 3. Disposition: At this time, the family seems to be willing to have short- term stay at a rehab facility. I think this would help the patient immensely before we transition him to be home. We will ask the nursing home social worker to discuss it with them if the rehab facility could take him with Venturi mask on, could possibly send him out after the thoracentesis on the left side if done. MTDD
[2016-12-03] MEDS: HUMULIN R SUBQ SCH ×4 (06:25→22:12)
--- NOTE | 2016-12-03 07:36 | Diag Imaging Result Document ---
PROCEDURE NAME: CHEST-1 VIEW - 12/03/2016 SINGLE FRONTAL RADIOGRAPH OF THE CHEST: COMPARISON: 12/02/2016. FINDINGS: Right PICC line is in stable position. Inspiration is suboptimal. There is persistent bibasilar atelectasis that is stable and increased central vascular markings indicating pulmonary venous congestion. There is also evidence of at least mild interstitial edema. It is approximately stable. The left pleural effusion appears less prominent than the previous study. This may be due to differences in positioning, however. Trace right pleural fluid is stable. Cardiac silhouette is stable. IMPRESSION: Apparent decrease in density at the left lung base suggesting decrease in effusion and improvement in the adjacent atelectasis and/or infiltrate. However, it is possible that this is positional.
[2016-12-03] MEDS: SOLU-MEDROL IV SCH ×2 (08:50→21:30)
[2016-12-03] MEDS: MIRALAX PO SCH (08:50)
[2016-12-03] MEDS: CARDIZEM CD PO SCH (08:51)
[2016-12-03] MEDS: FOLIC ACID PO SCH (08:51)
[2016-12-03] MEDS: LASIX IV SCH (08:51)
[2016-12-03] MEDS: VITAMIN D PO SCH (08:51)
[2016-12-03] MEDS: TOPROL XL PO SCH (08:51)
[2016-12-03 10:56] LABS: MANUAL DIFF NEEDED? NO
[2016-12-03 11:05] LABS: BASO% 0.2 % (0.0-0.8); EOS# 0.09 X1000 (0.0-0.7); EOS% 1.5 % (0.0-10.0); HEMATOCRIT 30.4 % (42.0-52.0); HEMOGLOBIN 9.1 g/dL (14.0-18.0); LYMPH# 0.57 X1000 (1.2-3.4); LYMPH% 9.6 % (20.5-51.1); MCH 30.5 PG (27-31); MCHC 29.9 g/dL (33-37); MONO# 0.35 X1000 (0.11-0.59); MONO% 5.9 % (1.7-9.3); MPV 10.3 FL (7.4-10.4); NEUT% 82.8 % (42.2-75.2); PLT 138 X1000 (130-400); RBC 2.98 XMIL (4.7-6.1)
[2016-12-03] MEDS: MORPHINE IV PRN ×2 (13:02→19:18)
--- NOTE | 2016-12-03 16:07 | PROGRESS NOTE ---
DATE: 12/03/2016 SUBJECTIVE: Patient reports feeling better. Denies any fever or chills. OBJECTIVE: Vital Signs: Temperature 97.5 degrees, heart rate 86, respiratory rate 17, blood pressure 144/64, O2 saturation 93% on 4 L nasal cannula. General Examination: This is a morbidly obese, chronically ill appearing, 86-year-old male, lying in bed, in no acute distress. HEENT: Head is normocephalic, atraumatic. Anicteric sclerae. Pale conjunctivae. Mucous membranes moist. Neck: Supple. No JVD noted. No carotid bruits. No lymphadenopathy. No thyromegaly. Cardiovascular: S1, S2 heard. No murmurs, gallops, or rubs. Regular rate and rhythm. Respiratory: Decreased breath sounds globally with some crackles noted in both bases. The patient is not using any accessory muscles or having work of breathing. Abdomen: Soft. Nontender to palpation. Bowel sounds present. No organomegaly. Extremities: There is 1+ pitting edema in both lower extremities, the same in comparing with yesterday. Peripheral pulses present in both legs. Neurological: Patient is alert and oriented x3. Moves 4 extremities. LABORATORY DATA: White cell count 5.92, hemoglobin 9.1, hematocrit 30.2, platelets 138,000. ABG shows pH 7.43, pCO2 67. ASSESSMENT AND PLAN: 1. Acute on chronic hypoxemic respiratory failure secondary to pulmonary edema. The patient has been evaluated by Dr. Rios from pulmonary and also from Dr. Bush from cardiology and it was decided to proceed with thoracocentesis. We were able to remove 1 L of pleural fluid from the right side. Clinically, the patient reports that he is feeling much better. We checked with Dr. Rios and he thinks that we have to wait in order to proceed with the left pleural effusion thoracentesis. At this time he is requiring 4 L of oxygen by nasal cannula. We will continue with the same management. We will continue with Lasix, same dose. 2. Status post bowel resection with wound dehiscence. Dr. Toney continues to follow this patient and they are okay to let this patient go whenever he gets a bed at rehab. 3. Pneumonia secondary to Enterobacter. That condition has resolved. 4. Diabetes mellitus type 2. On sliding scale insulin. 5. Diabetic neuropathy. Aware. 6. Paroxysmal atrial fibrillation. We will continue with the same management, in this case Cardizem CD 180 mg p.o. daily. Patient is in sinus rhythm. 7. Vitamin D deficiency. Patient receiving vitamin D supplementation. 8. Disposition. We have consulted social secretary to have an LTAC evaluation. We will have the results of that evaluation tomorrow.
--- NOTE | 2016-12-03 18:25 | PROGRESS NOTE ---
DATE: 12/03/2016 CHIEF COMPLAINT: Shortness of breath, irregular heartbeat, abdominal distention. SUBJECTIVE: Mr. Tucker in general seems to be doing better since the thoracentesis. He is still having some pleuritic type of chest pain on the right side. Followup chest x-ray was done today. It shows apparent decrease in density at the left lung base suggesting decrease in effusion, improvement in adjacent atelectasis. There is mild interstitial edema. OBJECTIVE: Vital signs today: Blood pressure is 139/65, temperature 98.4, pulse 97, respirations 24. General : He is awake, alert. He does not look pale. He is in no distress. HEENT: Unremarkable. Chest: Diminished breath sounds at the bases. Cardiac: Heart sounds are irregularly irregular, distant. Abdomen: Brace on the abdomen. Extremities: Show no edema. Pulses diminished. Neurologic: Moves all extremities. LABORATORY DATA: Blood work from today shows white count 5920, hemoglobin 9.1. We do not have electrolytes today. IMPRESSION: 1. Patient who has persistent atrial fibrillation. Rate is controlled. 2. Bilateral pleural effusions. This is probably secondary to compressive atelectasis due to his prolonged postoperative course associated with diastolic heart failure. 3. Status post several abdominal surgeries including bowel obstruction and then dehiscence of the incision. 4. Obesity. 5. History of coronary heart disease with no evidence of recurrent ischemia. RECOMMENDATIONS: At this point in time, we will continue conservative approach. We will check blood work in the morning. I will discuss with the other members of the team regarding the possibility of performing additional thoracentesis in the contralateral chest. The thoracentesis of December 02 resulted in good relief of his hypoxemia. According to the CT scan of the chest from November 27, he had a fair amount of effusion on the right side, but there was also some noted on the left side. At any rate, he seems to be progressing well. We will make further decisions in the morning after examining him.
[2016-12-03] MEDS: DESYREL PO SCH (21:30)
[2016-12-04] MEDS: DUONEB (A & A) INH SCH ×3 (03:20→11:17)
[2016-12-04 03:53] LABS: ALLEN TEST YES; BE 17.3 mmoll (-3.0-3.0); BLOOD TYPE ARTERIAL; DRAW SITE R RADIAL; METHB 1.6 % (0.0-1.5); O2(CT) 12.3 mL/dL (15.0-23.0); PO2(98.6) 158 mmHg (60-100); SAMPLE BLOOD; SAO2 100.1 % (95.0-100.0); THB 8.8 g/dL (11.5-17.4); pH(98.6) 7.51 (7.35-7.45)
[2016-12-04 03:54] LABS: MODALITY BI PAP; PCO2(98.6) 53 mmHg (35-45)
[2016-12-04 05:22] LABS: MANUAL DIFF NEEDED? NO
[2016-12-04 05:40] LABS: BASO% 0.2 % (0.0-0.8); HEMATOCRIT 28.9 % (42.0-52.0); HEMOGLOBIN 8.9 g/dL (14.0-18.0); LYMPH# 0.65 X1000 (1.2-3.4); LYMPH% 12.5 % (20.5-51.1); MCH 30.9 PG (27-31); MCHC 30.8 g/dL (33-37); MCV 100.3 FL (81-99); MONO# 0.24 X1000 (0.11-0.59); MONO% 4.6 % (1.7-9.3); MPV 10.6 FL (7.4-10.4); NEUT% 82.7 % (42.2-75.2); PLT 137 X1000 (130-400); RBC 2.88 XMIL (4.7-6.1)
[2016-12-04 05:47] LABS: CALCIUM 8.7 mg/dL (8.8-10.2); POTASSIUM 4.4 mmol/L (3.5-5.1)
[2016-12-04] MEDS: PROTONIX IV SCH (06:08)
[2016-12-04] MEDS: HEPARIN SUBQ SCH ×2 (06:08→12:57)
--- NOTE | 2016-12-04 06:31 | PROGRESS NOTE ---
DATE: 12/04/2016 SUBJECTIVE: Patient doing well. More conversive today. No major issues. OBJECTIVE: Vital Signs: Patient is currently afebrile. His vital signs have been stable. General: No acute distress. Cardiovascular: Some irregularity. Lungs: Coarse sounds noted but, overall, improved. Abdomen soft, nontender, nondistended. Binder in place. Incision is healing well. LABORATORY: ABG reviewed. ASSESSMENT AND PLAN: An 86-year-old male status post exploratory laparotomy with small bowel resection and fascial dehiscence x2. 1. Postoperative state. I think the patient is doing well. We will continue MiraLAX. I think if he is still here on Wednesday, we will remove his sutures. It has been over 21 days since his last surgery. If not, they can potentially remove them at the LTAC. 2. Respiratory status. At this time, he appears to be doing well. He is on nasal cannula. Hopefully, can transfer him over to LTAC here soon. DISPOSITION: At this time, the family seems to be willing to go to a long-term care facility at [facility]. If that could be arranged, would like to make that happen for the patient.
[2016-12-04] MEDS: HUMULIN R SUBQ SCH ×2 (06:36→12:57)
[2016-12-04] MEDS: SOLU-MEDROL IV SCH (08:09)
[2016-12-04] MEDS: CARDIZEM CD PO SCH (08:09)
[2016-12-04] MEDS: MIRALAX PO SCH (08:09)
[2016-12-04] MEDS: FOLIC ACID PO SCH (08:09)
[2016-12-04] MEDS: LASIX IV SCH (08:09)
[2016-12-04] MEDS: TOPROL XL PO SCH (08:10)
[2016-12-04 12:12] VITALS: BP 109/54
--- NOTE | 2016-12-04 12:20 | Diag Imaging Result Document ---
PROCEDURE NAME: US THORACENTESIS - 12/04/2016 ULTRASOUND-GUIDED LEFT THORACENTESIS: COMPARISON: Chest x-ray 12/03/2016. FINDINGS: The risks and benefits of the procedure were discussed with the patient. All questions were answered. Written and verbal informed consent was obtained. Ultrasound scanning demonstrated a moderate left pleural effusion. Overlying skin was prepped and draped in sterile fashion. Anesthesia was achieved with injection of 7 mL of 1% lidocaine. The thoracentesis catheter was advanced without difficulty until the return of pleural fluid. 700 mL was aspirated into an evacuated bottle. The catheter was withdrawn intact. The patient reported no symptoms from the procedure. IMPRESSION: Successful and uncomplicated ultrasound-guided thoracentesis on the left.
--- NOTE | 2016-12-04 12:36 | Diag Imaging Result Document ---
PROCEDURE NAME: CHEST-2 VIEWS - 12/04/2016 TWO VIEWS OF THE CHEST, INSPIRATORY AND EXPIRATORY: FINDINGS: There is no evidence of pneumothorax. The left pleural effusion has improved. There is still some fluid and atelectasis in the right base. IMPRESSION: Improved left pleural effusion.
[2016-12-04] MEDS: MORPHINE IV PRN (12:57)
--- NOTE | 2016-12-04 16:35 | DISCHARGE SUMMARY ---
ADMISSION DATE: 10/31/2016 DISCHARGE DATE: 12/04/2016 ADMISSION DIAGNOSES: 1. Small bowel obstruction. 2. Riugc-nw-gkiluhn kidney disease. 3. Diabetes mellitus, type 2. 4. Hypertension. 5. Dyslipidemia. DISCHARGE DIAGNOSES: 1. Lifad-sv-wuniwdj hypoxic respiratory failure secondary to pulmonary edema. 2. Status post bowel resection with wound dehiscence x2. 3. Pneumonia secondary to Enterobacter which is resolved. 4. Diabetes mellitus, type 2, stable. 5. Vitamin D deficiency. 6. Persistent atrial fibrillation, rate controlled. 7. Diabetic neuropathy. 8. Bilateral pleural effusions, status post thoracentesis. 9. Obesity. SURGICAL PROCEDURES: 1. On 11/04/[address] Omar Toney, exploratory laparotomy, small bowel resection with stapled [id number] functional end-to-end anastomosis. 2. On 11/07/[address] Chelsi Rebolledo, exploration of midline wound with reclosure of fascia secondary to wound dehiscence. 3. On 11/10/[address] Omar Toney, wound exploration and closure en cherry of fascia with 0 sutures and retention sutures. CONSULTATIONS: 1. Dr. Omar Toney for small bowel obstruction on 10/31/2016. 2. Dr. Chalres Bush for atrial fibrillation with RVR on 11/02/2016. 3. Dr. Babatunde Lorenzana, small bowel obstruction on 11/04/2016. 4. Dr. Paresh Michelle for postoperative ventilator management on 11/08/2016. 5. Dr. Timur Hernandez from Infectious Disease for wound infection and pneumonia, Enterobacter management on 11/16/2016. 6. Nutritional consult for total parenteral nutrition management. 7. Wound consult for stage 2 left gluteal pressure ulcer. HOSPITAL COURSE: Mr. Chelsi Tucker is an 86-year-old male with a history of diabetes mellitus, type 2; dyslipidemia, hypertension, coronary artery disease, status post CABG; renal insufficiency and BPH who presented to the ER with complaints of abdominal pain and nausea. He had an onset of abdominal distention 2-3 days prior to admission. He had reported daily bowel movements, two loose stools on the day of arrival to the ER. He did have nausea but no vomiting or melena, generalized abdominal pain. He felt tight. He denied fever, chills, chest pain. At that time, evaluation in the ER included a CT of the abdomen and pelvis which revealed small bowel obstruction with multiple prominently dilated gas and fluid-filled loops of small bowel with transition to normal caliber in the right abdomen. Mesenteric edema with small free fluid was also present. Incidental finding was a lipoma within the loop of the bowel in the right lower quadrant. Consult for surgery by Dr. Toney. The patient was evaluated and underwent exploratory laparotomy with small bowel resection on 11/04/2016. He was followed by the surgical team during this course of stay and returned to surgery twice due to fascial dehiscence on 11/07/[address] Rebolledo and on 11/10/[address] Toney, and, at that time had retention sutures placed. The pathology of the specimen revealed mucosal erosion with acute and chronic inflammation, early necrosis, and patchy serosal adhesions. After surgery, the patient was placed in the ICU. On 11/07/2016, he remained intubated and was on ventilator support for 5 days. Pulmonary was consulted for ventilator support management. They followed the patient through extubation. Nutritional support was consulted on 11/08/2016, and this was secondary to being n.p.o. and intubated. TPN was initiated and completed for 16 days. He was eventually advanced to a regular diet with Ensure. A culture of the incision site was obtained on 11/14/2016 due to redness at the incision site and minimal serous drainage. Gram stain revealed 2+ white blood cells, 2+ gram- negative rods and 2+ gram-positive cocci, The final report on 11/17/2016 revealed Enterobacter aerogenes and Enterococcus faecalis, 1+ group D. Dr. Hernandez was consulted to manage, and it was felt that he should remain on Levaquin. Ampicillin IV was added after final culture result. Dr. Lorenzana was consulted regarding the small bowel obstruction and continued abdominal distention. Along with surgery, he followed the patient during course of stay. The patient was noted to have apyhj-wk-chgcvvg kidney disease on admission. Now, he is back to baseline after IV fluid hydration. Diabetes maintained. It was somewhat labile during stay secondary to n.p.o. status and TPN. During his stay on 11/02/2016, he developed atrial fibrillation with RVR. EKG revealed a rate of 147. He was moved to [facility] and Cardizem drip was started to manage his atrial fibrillation with RVR. He continued with IV medication until 11/07/2016. Dr. Bush had been consulted and saw the patient on 11/02/2016. The cardiology team followed and managed this aspect of care. Echocardiogram showed a left ventricular systolic function at 55%. He is currently in persistent atrial fibrillation but is rate controlled. He received only DVT prophylaxis of Lovenox daily, and then they started digoxin for rate control. In regards to the patient's pleural effusions he developed during his stay, ultrasound-guided thoracentesis x2 was performed on 12/02/2016 and again today on 12/04/2016. On 12/02/2016, they did a right thoracentesis which drained a 1000 mL of fluid. Today, the left was draining 700 mL of fluid. Now it is deemed appropriate for him to go to a long-term care facility that is located in [place], [place]. DISCHARGE VITAL SIGNS: Temperature 97.6 degrees, heart rate 97, respiratory rate 18, blood pressure 109/54, O2 saturation 95% on 6 L nasal cannula. DISCHARGE LABORATORY DATA: White blood cells 5000, hemoglobin 8.9, hematocrit 28.9, platelet count 137,000. ABGs: pH 7.51, pCO2 of 53, PO2 of 158. Bicarb 38. Base excess +17. O2 saturation 96%. Lactate was 1.1. This was on BiPAP this morning. Apparently, he does BiPAP at night. Sodium 143, potassium 4.4. BUN 37, creatinine is 1.2, glucose 191, calcium 8.7. Pleural fluid studies: pH 7, white blood cells 177, glucose 162. Protein was 2.9, LDH was 93, and amylase was 15. DISCHARGE IMAGING: On , abdominal pelvic CT showed small bowel obstruction, chronic mesenteric panniculitis, unchanged. Possible gastroparesis, possible lipoma but something that may have been ingested by the patient. On 11/01/2016, abdominal flat and upright revealed an ileus, small bowel obstruction and colonic gas. On 11/02/2016, small bowel x-ray: Partial distal small bowel obstruction right lower quadrant. On 11/04/2016, he had a KUB. Significant barium in the colon similar to the prior exam. No definite bowel obstruction or free air. No specific or acute disease. Chest x-ray on 11/06/2016 showed a small left pleural effusion. Chest x-ray on 11/08/2016, showed right-sided basilar infiltrates or atelectasis with a small left effusion. Chest x-ray on 11/09/2016 worsening pulmonary edema. 11/12/2016, portable x-ray: Continued pulmonary edema and worsening pleural effusion bilaterally. Continued to worsen on 11/29/2016 pleural effusions. Severe pulmonary edema. Cardiomegaly. On 11/28/2016, a KUB was hyperinflated with barium, had a colonic ileus. 11/20/2016, V/Q scan ruled out PE. On 11/27/2016, chest CT without contrast: Respiratory distress. Showed interstitial pulmonary edema. Bilateral pleural effusions. On 12/02/2016 was an ultrasound-guided thoracentesis on the right. Pulled out a 1000 mL that was straw colored. On 11/02/2016, the EKG was atrial fibrillation with RVR, rate 147. On 11/30/2016, echocardiogram performed. EF was 55%. Right ventricle mildly enlarged. Mild MR. Mild sclerosis of the aortic valve. Moderate TR. On 12/04/2016, ultrasound-guided thoracentesis of the left pleural effusion pulled out 700 mL of pleural fluid. DISCHARGE DIET: Diabetic diet. Ensure with meals. for protein calorie malnutrition. DISCHARGE ACTIVITY: As tolerated. Will need physical therapy. DISPOSITION: LTAC in [place]. DISCHARGE INSTRUCTIONS: Will need full care. Will need to follow up with Dr. Omer Gaona as primary, with Dr. Timur Hernandez and with Dr. Hauser. He may need to follow up with gastroenterology, Dr. Babatunde Lorenzana, and pulmonary. DISCHARGE TIME: 45 minutes. Dictated by SMITHA Merrill for Nino Cobb MD cc: SMITHA Merrill MD [facility]
== END 2016-12-04 16:28 ==
LOC: ED 00:56 → 4N 03:01 → 3S 11-02 12:41 → ICU 11-07 20:58 → 3S 11-18 02:51
PROVIDERS: ATTEND Internal Medicine

== ENCOUNTER 2019-04-12 10:49 | Observation (INO) ==
[~2019-04-12 10:49] MED LIST: SALINE LOCK IV FLUID XX ONE
[2019-04-12] MEDS: NS 1,000 ML IV SCH (11:57)
--- NOTE | 2019-04-12 13:55 | Diag Imaging Result Doc PS360 ---
EXAM: CT THORAX/ABD/PELVIS W/WO CON 04/12/2019 HISTORY: RLQ pain r/o appendicitis TECHNIQUE: This exam was performed using automated exposure control, adjustment of mA or kV according to patient size, and/or use of iterative reconstruction technique. COMMENT: Thorax: The current examination is compared with the previous study of 11/27/2016. There is some minimal atelectasis in the lung bases. There are bilateral pleural effusions. There are coronary calcifications. The aorta is not distended. There is no evidence of significant adenopathy. There are no apparent filling defects in the pulmonary arteries. There is no evidence of aortic dissection or significant adenopathy. Compared to the previous examination the pleural fluid collections and atelectasis or much better. The regional skeleton is stable in appearance. ABDOMEN: The current study is compared with the previous study of 01/09/2017. There is no evidence of cholelithiasis. There arterial calcifications present in the left kidney. There are bilateral renal cysts. There is no evidence of nephrolithiasis or hydronephrosis. There are calcifications in the proximal portions of both renal arteries and the superior mesenteric artery. Both are patent. There is no evidence of abdominal aortic aneurysm. The inferior mesenteric artery and celiac arteries are patent. There is no evidence of bowel obstruction. There are some calcifications in the liver and spleen. There is increased density and some prominent nodes in the mesentery consistent with mesenteric panniculitis. This was also present at the time the previous study. Pelvis: The appendix is normal in appearance. There is a fairly large amount of stool in the ascending and rectosigmoid colon. The prostate is not enlarged. The urinary bladder is slightly distended. There has been previous fusion at L4-5. There is no evidence of acute bony abnormality. IMPRESSION: 1. Improved pleural effusions and basilar atelectasis compared to 11/27/2016. 2. Bilateral renal cysts. Atherosclerosis. Mesenteric panniculitis. All of this is stable since 01/09/2017. 3. Constipation. No evidence of appendicitis. Electronically signed by Samuel Cho 04/12/2019 1:53 PM
[2019-04-12] MEDS ORDERED: COLACE PO ONE (18:18)
[2019-04-12] MEDS ORDERED: CITRATE OF MAGNESIA PO ONE (18:18)
[2019-04-12] MEDS ORDERED: RESTORIL PO SCH (21:00)
[2019-04-12] MEDS: ELIQUIS PO SCH (21:36)
[2019-04-12] MEDS: DESYREL PO SCH ×2 (21:40→21:41)
[2019-04-13] MEDS: NS 1,000 ML IV SCH (03:13)
[2019-04-13 07:25] VITALS: BP 138/72
[2019-04-13] MEDS: ELIQUIS PO SCH (08:09)
[2019-04-13] MEDS ORDERED: TOPROL XL PO SCH (09:00)
[2019-04-13] MEDS ORDERED: KLOR-CON PO SCH (09:00)
[2019-04-13] MEDS ORDERED: LASIX PO SCH (09:00)
[2019-04-13] MEDS ORDERED: PYRIDOXINE PO SCH (09:00)
[2019-04-13] MEDS ORDERED: VITAMIN B-1 PO SCH (09:00)
[2019-04-13] MEDS ORDERED: FOLIC ACID PO SCH (09:00)
--- NOTE | 2019-05-08 12:09 | HISTORY AND PHYSICAL ---
ATTENDING PHYSICIAN/ADMITTING PHYSICIAN: Omer Gaona DO. CHIEF COMPLAINT: Patient reports some kind of infection that migrates from the bottom up to the back and down to the legs. HISTORY OF PRESENT ILLNESS: Mr. 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 He has been deemed historically as a nonoperative candidate. Multiple other problems including but not limited to, vitamin D deficiency, B12 deficiency, atrial fibrillation, diabetes with kidney involvement, pulmonary hypertension, personal history of colon polyps, history of gout, history of iron deficient anemia, history of bowel obstruction, history of elevated liver enzymes, dyslipidemia, diverticular disease, and chronic respiratory failure with nocturnal hypoxia. He is seen in the [facility] on 04/12/2019 with complaint as mentioned above. He states that he has had a burning sensation that migrates from his bottom to his back and down his legs. Also some burning in his chest and arms as well. He cannot quantitate how long it has been going on because he "can't keep up with time." He states he does not have any dysuria or burning. Many years ago he had a similar symptom when he was diagnosed with prostatitis. He also reports that his neck has been stiff over the past several days but have not had any fever and has not had any shortness of breath. He notices the burning more at night. He denies any dizziness and says that he always has numbness in his feet secondary to peripheral neuropathy and low back issues. He has not tried anything over the counter for relief. About 2 months ago he saw GI for some issues with regards to bloating, was put on MiraLAX and told to avoid any type of process sugar. He was told to come back in May. Patient continues on stool softener without evidence of incontinent. There has been no reported weakness or worsening of lower extremity historical complaint. His weight has increased approximately 18 pounds since the last time we have seen each other. KUB performed in the office showing a nonspecific bowel gas pattern. CBC, CMP, iron ferritin and magnesium are pending at the time of dictation. It is recommended based on nonspecific bowel-gas pattern and history of bowel obstruction that he be admitted for further diagnostic workup and evaluation. He is admitted to the internal medicine service for right lower quadrant pain and known history of diverticular disease, rule out diverticulitis and history of previous bowel obstruction. ALLERGIES: Calcium channel blockers with exacerbation of constipation, Lyrica with confusion. CURRENT MEDICATIONS: MiraLAX 17 g once daily, multivitamin 1 daily, B12 replacement 1000 mcg once daily, Magnesium oxide 400 mg once daily, ferrous sulfate 325 mg once daily, metoprolol 50 mg once daily, Uloric 80 mg once daily, Nexium 40 mg once daily, atorvastatin 40 mg once daily, Eliquis 5 mg b.i.d., vitamin D 1000 international units once daily, potassium 20 mEq once daily, trazodone 200 mg p.o. at bedtime, Levemir 10 mg subcutaneously at bedtime, and Cymbalta 30 mg once daily. PAST MEDICAL HISTORY: As per HPI above. FAMILY HISTORY: Father at [address] Mother at 95 of old age. Brother at 78 of bad lifestyle. Sister 78 with osteoarthritis. Sister 80 at secondary to respiratory failure. Sister at 70 unremarkable. Patient is with 4 children, 59, 58, 57 and 48. Four grandchildren and 4 great grandchildren. SOCIAL HISTORY: He has been for 60 years. 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 He is fully retired as of 2003. Patient with a remote history of 3 packs a day for 51 years. He has quit since 1969. Patient with previous history of alcohol quitting in 2013. PAST SURGICAL HISTORY: Colon surgery with repair in 2016, tonsillectomy in 1953, benign cyst of the right shoulder in 1986, open heart surgery in 1996 (5 vessel), multiple back surgeries in 1998, 2003, and 2004. Prostate microwave therapy for BPH in 2007, hernia repair in 2008, patient having been admitted for bowel obstruction in December 2016 status post surgical intervention. HISTORICAL HOSPITALIZATIONS: Kidney stones in 1992. Heart in 1987 and 1996. CABG in 1996. Blood pressure and heart issues in 2006. Patient admitted in 2013 for edema. 2017 for stomach and bowel issues. No hospitalizations in 2018 and now being admitted for nonspecific abdominal distress. REVIEW OF SYSTEMS: Unremarkable except that noted within the HPI. Patient's last annual wellness visit in April 2017. Comprehensive reassessment and annual exam noted to be May 2018. PHYSICAL EXAMINATION: VITAL SIGNS: Blood pressure 152/86, pulse at 82, saturating 94% on room air, temperature at 97.7, weighing 223 pounds with a BMI of 38.27. GENERAL: Patient is well-nourished, well-developed in no acute distress. HEENT: Normocephalic atraumatic. Pupils are equal and reactive to light and accommodation. NECK: Soft and supple without lymphadenopathy or bruits. CARDIOVASCULAR: Regular rate and rhythm. ABDOMEN: Protuberant abdomen with nonspecific right lower quadrant tenderness without rebound or guarding. RECTAL EXAM: Demonstrating heme-negative, painful prostate exam. Dark green stool is noted but is noted to be heme negative. There is a significant amount of perirectal erythema with without evidence of breakdown. EXTREMITIES: Showing bilateral lower extremity trace pitting edema. Recent postsurgical changes in the left lower anterior extremity are noted. NEUROLOGICAL: Cranial nerves II through XII grossly intact. Patient is alert and oriented x3 without any cognitive deficiencies. IMPRESSION: An 88-year-old, with nonspecific abdominal complaints with localization to the right lower quadrant. Patient still has his appendix. The patient with previous history of obstruction requiring surgical intervention. Based on persistence of complaints over the past several days, patient is admitted to the internal medicine service for further diagnostic workup and imaging. I do not feel that this represents prostatitis, however, we will be obtaining some lab and following clinically in this regard. Pending at the time of dictation includes a CT scan as well as additional laboratory. The patient and son understand the course of treatment and plan. No further issues at this time. TIME SPENT: Total time spent with patient in the office and at the bedside following admission more than 90 minutes. cc: Omer Gaona DO
--- NOTE | 2019-05-08 12:54 | DISCHARGE SUMMARY ---
ADMISSION DATE: 04/12/2019 DISCHARGE DATE: 04/13/2019 DISCHARGE DIAGNOSES: Right lower quadrant pain, rule out appendicitis. CT scan showing evidence of constipation as well as ongoing lack incidental findings of bilateral renal cysts, atherosclerosis, mesenteric panniculitis; all of these stable since January of 2017. CONSULTATIONS DURING ADMISSION: None. ADDITIONAL LABORATORY DURING ADMISSION: None. HOSPITAL COURSE: The patient was admitted on the afternoon/evening of the for abdominal pain, localizing to the right lower quadrant with known history of bowel obstruction in 2017, and no prior history of appendectomy. CT scan failing to demonstrate any evidence of critical pathology. Adjustments in the cathartic therapy were recommended. I suspect there may be some neurogenic bowel secondary to advanced degenerative spine disease superimposed on scoliosis. Certainly, this can be worked up and continued management as an outpatient. DISCHARGE MEDICATIONS: 1. Folic Acid 1 mg p.o. daily. 2. Trazodone 200 mg p.o. at bedtime. 3. Thiamin 100 mg once daily. 4. Levemir 10 units at bedtime. 5. MiraLAX 17 g daily. 6. Metoprolol 25 mg once daily. 7. Eliquis 5 mg b.i.d. 8. Potassium Chloride 20 mEq once daily. MEDICATIONS BEING STOPPED AT THE TIME OF DISCHARGE: Lactulose, Restoril, Bactroban and doxycycline. DISCHARGE INSTRUCTIONS: No new and/or additional recommendations at this time. We will see the patient back in the next several days with post hospital follow up. Patient and son understand the course of treatment and plan. No further issues at this time. cc: DO RYDER Bell
== END 2019-04-13 08:35 | disposition home or self-care (01) ==
LOC: DIRADM → 3N 10:49
PROVIDERS: ADMIT Internal Medicine; ATTEND Internal Medicine